=== PATIENT | female | born 1940 | race Caucasian/White ===

== ENCOUNTER → 2016-12-31 | Outpatient (CLI) | payer MEDICARE, BC ==
--- NOTE | 2017-01-03 10:02 | MM ---
Reason for exam: screening (asymptomatic). Last mammogram was performed 1 year ago. History: Patient is postmenopausal. Family history of breast cancer in mother at age 60. Physical Findings: A clinical breast exam by your physician is recommended on an annual basis and results should be correlated with mammographic findings. MG 3D Screening Mammo W/Cad Bilateral CC and MLO view(s) were taken. Prior study comparison: December 17, 2015, bilateral MG 3d screening mammo w/cad. December 16, 2014, bilateral MG screening mammo w CAD. The breast tissue is heterogeneously dense. This may lower the sensitivity of mammography. There is no discrete abnormality. No significant changes when compared with prior studies. ASSESSMENT: Negative, BI-RAD 1 RECOMMENDATION: Routine screening mammogram of both breasts in 1 year.
== END | disposition home or self-care (01) ==
LOC: RADMAMWWP 14:35
PROVIDERS: ATTEND Internal Medicine
DX: Z12.31 Encounter for screening mammogram for malignant neoplasm of breast (principal)
CPT/HCPCS: 77063; G0202

== ENCOUNTER 2017-02-06 11:27 | Inpatient (IN) | payer MEDICARE, BC ==
[2017-02-06] MEDS ORDERED: SODIUM CHLORIDE 0.9% 1,000 ML IV STA ×2 (11:48)
--- NOTE | 2017-02-06 11:52 | ED ---
Arrhythmia/Palpitations HPI - General Chief Complaint: Arrhythmia/Palpitations Stated Complaint: HEART RACING, COLD, CLAMMY AND WEAK Time Seen by Provider: 02/06/17 11:36 Source: patient, family, RN notes reviewed Mode of arrival: wheelchair Limitations: no limitations - History of Present Illness Initial Comments: This is a 76-year-old female history diabetes who presents with complaints of a racing heart weakness feeling shaky. She states she did have some left-sided chest pain since 5 days ago she was taking her blood pressure home and also her pulse is rapid and her blood pressure has been going up especially over last day or so she's had decreased oral intake and appetite for past 2-3 days she denies any fevers chills or sweats no nausea or other symptoms. No cough. She did recently go to [place] come back but this was toward the end of December. MD Complaint: "heart racing", palpitations - Related Data Home Medications Medication Instructions Recorded Confirmed Aspirin [Adult Low Dose Aspirin EC] 81 mg PO DAILY 02/06/17 02/06/17 Carvedilol [Coreg] 12.5 mg PO BID 02/06/17 02/06/17 Cholecalciferol [Vitamin D3] 1,000 unit PO DAILY 02/06/17 02/06/17 Escitalopram [Lexapro] 10 mg PO DAILY 02/06/17 02/06/17 Ezetimibe [Zetia] 10 mg PO DAILY 02/06/17 02/06/17 INSULIN LISPRO (HumaLOG) [HumaLOG] See Protocol SQ TID 02/06/17 02/06/17 Insulin Glargine [Lantus] 12 unit SQ HS 02/06/17 02/06/17 Levothyroxine Sodium [Synthroid] 88 mcg PO DAILY 02/06/17 02/06/17 Lisinopril [Zestril] 10 mg PO BID 02/06/17 02/06/17 Pitavastatin Calcium [Livalo] 2 mg PO DAILY 02/06/17 02/06/17 Vitamin B Complex 1 cap PO DAILY 02/06/17 02/06/17 Allergies Allergy/AdvReac Type Severity Reaction Status Date / Time amoxicillin Allergy Anaphylaxis Verified 02/06/17 13:00 bee venom protein (honey bee) Allergy Anaphylaxis Verified 02/06/17 13:00 Sulfa (Sulfonamide Allergy Anaphylaxis Verified 02/06/17 13:00 Antibiotics) Review of Systems ROS Statement: Those systems with pertinent positive or pertinent negative responses have been documented in the HPI. ROS Other: All systems not noted in ROS Statement are negative. Past Medical History Past Medical History: Diabetes Mellitus, Hypertension, Thyroid Disorder Additional Past Medical History / Comment(s): irregular heart beat History of Any Multi-Drug Resistant Organisms: None Reported Past Surgical History: No Surgical Hx Reported Past Psychological History: Anxiety Smoking Status: Former smoker Past Alcohol Use History: None Reported Past Drug Use History: None Reported General Exam - General Exam Comments Initial Comments: This is a well-developed well-nourished awake alert oriented x 3 female Limitations: no limitations General appearance: alert, in no apparent distress Head exam: Present: atraumatic, normocephalic, normal inspection Eye exam: Present: normal appearance, PERRL, EOMI. Absent: scleral icterus, conjunctival injection, periorbital swelling ENT exam: Present: mucous membranes dry Neck exam: Present: normal inspection. Absent: tenderness, meningismus, lymphadenopathy Respiratory exam: Present: normal lung sounds bilaterally. Absent: respiratory distress, wheezes, rales, rhonchi, stridor Cardiovascular Exam: Present: regular rate, normal rhythm, normal heart sounds. Absent: systolic murmur, diastolic murmur, rubs, gallop, clicks GI/Abdominal exam: Present: soft, normal bowel sounds. Absent: distended, tenderness, guarding, rebound, rigid Extremities exam: Present: normal inspection, full ROM, normal capillary refill. Absent: tenderness, pedal edema, joint swelling, calf tenderness Back exam: Present: normal inspection Neurological exam: Present: alert, oriented X3, CN II-XII intact Psychiatric exam: Present: normal affect, normal mood Skin exam: Present: warm, dry, intact, normal color. Absent: rash Course Vital Signs 02/06/17 02/06/17 02/06/17 11:29 11:46 12:06 Temperature 98.3 F Pulse Rate 77 70 67 Respiratory 20 Rate Blood Pressure 246/106 258/119 218/134 O2 Sat by Pulse 99 Oximetry 02/06/17 02/06/17 02/06/17 13:37 14:11 15:12 Temperature Pulse Rate 70 73 78 Respiratory 18 18 20 Rate Blood Pressure 229/100 221/92 210/93 O2 Sat by Pulse 98 99 98 Oximetry 02/06/17 02/06/17 02/06/17 15:48 16:11 16:41 Temperature Pulse Rate 74 74 74 Respiratory 18 20 20 Rate Blood Pressure 154/72 144/66 166/74 O2 Sat by Pulse 97 97 98 Oximetry EKG Findings - EKG Results: EKG: interpreted by ERMRachael, sinus rhythm (Sinus rhythm with a rate 68 [place] interval is 180 QRS 70 daily QT since QTC of 424/450 nonspecific anterior changes. This is compared to an EKG dated 08/04/11 which reveals no major changes and configuration.) Medical Decision Making - Medical Decision Making I did reevaluate the patient multiple occasions she still does not feel well she 's had no further chest pain however. I did a long discussion with her and her family regarding the findings the initial plan was to discharge patient but she still has recurrent symptoms she will be admitted I did discuss the case with Dr. Cooper. - Lab Data Result diagrams: 02/06/17 11:56 02/06/17 11:56 Lab Results 02/06/17 02/06/17 02/06/17 Range/Units 11:56 11:56 11:56 WBC 5.2 (3.8-10.6) k/uL RBC 4.45 (3.80-5.40) m/uL Hgb 12.4 (11.4-16.0) gm/dL Hct 37.3 (34.0-46.0) % MCV 83.7 (80.0-100.0) fL MCH 27.8 (25.0-35.0) pg MCHC 33.2 (31.0-37.0) g/dL RDW 13.9 (11.5-15.5) % Plt Count 301 (150-450) k/uL Neutrophils % 72 % Lymphocytes % 17 % Monocytes % 5 % Eosinophils % 3 % Basophils % 1 % Neutrophils # 3.8 (1.3-7.7) k/uL Lymphocytes # 0.9 L (1.0-4.8) k/uL Monocytes # 0.3 (0-1.0) k/uL Eosinophils # 0.2 (0-0.7) k/uL Basophils # 0.0 (0-0.2) k/uL PT (9.0-12.0) sec INR (<1.2) APTT (22.0-30.0) sec D-Dimer (<0.60) mg/L FEU Sodium 140 (137-145) mmol/L Potassium 4.2 (3.5-5.1) mmol/L Chloride 106 (98-107) mmol/L Carbon Dioxide 23 (22-30) mmol/L Anion Gap 11 mmol/L BUN 14 (7-17) mg/dL Creatinine 0.76 (0.52-1.04) mg/dL Est GFR (MDRD) Af Amer >60 (>60 ml/min/1.73 sqM) Est GFR (MDRD) Non-Af >60 (>60 ml/min/1.73 sqM) Glucose 217 H (74-99) mg/dL Calcium 9.5 (8.4-10.2) mg/dL Magnesium 1.8 (1.6-2.3) mg/dL Total Bilirubin 1.4 H (0.2-1.3) mg/dL AST 24 (14-36) U/L ALT 23 (9-52) U/L Alkaline Phosphatase 84 (38-126) U/L Total Creatine Kinase 116 (30-135) U/L CK-MB (CK-2) 4.5 H* (0.0-2.4) ng/mL CK-MB (CK-2) Rel Index 3.9 Troponin I <0.012 (0.000-0.034) ng/mL Total Protein 7.4 (6.3-8.2) g/dL Albumin 4.2 (3.5-5.0) g/dL TSH 0.028 L (0.465-4.680) mIU/L Free T4 2.47 H (0.78-2.19) ng/dL Urine Color Urine Appearance (Clear) Urine pH (5.0-8.0) Ur Specific [place] (1.001-1.035) Urine Protein (Negative) Urine Glucose (UA) (Negative) Urine Ketones (Negative) Urine Blood (Negative) Urine Nitrite (Negative) Urine Bilirubin (Negative) Urine Urobilinogen (<2.0) mg/dL Ur Leukocyte Esterase (Negative) Urine RBC (0-5) /hpf Urine WBC (0-5) /hpf Ur Squamous Epith Cells (0-4) /hpf 09/17/17 09/17/17 Range/Units 11:56 11:56 WBC (3.8-10.6) k/uL RBC (3.80-5.40) m/uL Hgb (11.4-16.0) gm/dL Hct (34.0-46.0) % MCV (80.0-100.0) fL MCH (25.0-35.0) pg MCHC (31.0-37.0) g/dL RDW (11.5-15.5) % Plt Count (150-450) k/uL Neutrophils % % Lymphocytes % % Monocytes % % Eosinophils % % Basophils % % Neutrophils # (1.3-7.7) k/uL Lymphocytes # (1.0-4.8) k/uL Monocytes # (0-1.0) k/uL Eosinophils # (0-0.7) k/uL Basophils # (0-0.2) k/uL PT 10.3 (9.0-12.0) sec INR 1.0 (<1.2) APTT 23.5 (22.0-30.0) sec D-Dimer 1.53 H (<0.60) mg/L FEU Sodium (137-145) mmol/L Potassium (3.5-5.1) mmol/L Chloride (98-107) mmol/L Carbon Dioxide (22-30) mmol/L Anion Gap mmol/L BUN (7-17) mg/dL Creatinine (0.52-1.04) mg/dL Est GFR (MDRD) Af Amer (>60 ml/min/1.73 sqM) Est GFR (MDRD) Non-Af (>60 ml/min/1.73 sqM) Glucose (74-99) mg/dL Calcium (8.4-10.2) mg/dL Magnesium (1.6-2.3) mg/dL Total Bilirubin (0.2-1.3) mg/dL AST (14-36) U/L ALT (9-52) U/L Alkaline Phosphatase (38-126) U/L Total Creatine Kinase (30-135) U/L CK-MB (CK-2) (0.0-2.4) ng/mL CK-MB (CK-2) Rel Index Troponin I (0.000-0.034) ng/mL Total Protein (6.3-8.2) g/dL Albumin (3.5-5.0) g/dL TSH (0.465-4.680) mIU/L Free T4 (0.78-2.19) ng/dL Urine Color Light Yellow Urine Appearance Clear (Clear) Urine pH 7.5 (5.0-8.0) Ur Specific [place] 1.008 (1.001-1.035) Urine Protein Negative (Negative) Urine Glucose (UA) 2+ H (Negative) Urine Ketones 2+ H (Negative) Urine Blood Negative (Negative) Urine Nitrite Negative (Negative) Urine Bilirubin Negative (Negative) Urine Urobilinogen <2.0 (<2.0) mg/dL Ur Leukocyte Esterase Trace H (Negative) Urine RBC 2 (0-5) /hpf Urine WBC 1 (0-5) /hpf Ur Squamous Epith Cells <1 (0-4) /hpf - Radiology Data Radiology results: report reviewed (I did review the imaging there is evidence of atelectasis in the mid left lung however CT shows no evidence of acute findings including no evidence of pulmonary embolism.), image reviewed Disposition Clinical Impression: Atypical chest pain, Labile hypertension, Palpitations Disposition: ADMITTED IP TO THIS [facility] Condition: Stable Referrals: Diallo Mckeon MD [Primary Care Provider] - 1-2 days
[2017-02-06 12:12] LABS: Basophils % (A) 1 %; CH 27.1; CHCM 32.5; Eosinophils # (A) 0.2 k/uL (0-0.7); Eosinophils % (A) 3 %; HCT 37.3 % (34.0-46.0); HDW 2.84; HGB 12.4 gm/dL (11.4-16.0); Luc # (Auto) 0.13; Luc % (Auto) 2; Lymphocytes # (A) 0.9 k/uL (1.0-4.8); Lymphocytes % (A) 17 %; MCH 27.8 pg (25.0-35.0); MCHC 33.2 g/dL (31.0-37.0); MCV 83.7 fL (80.0-100.0); Mean Platelet Volume 6.4; Monocytes # (A) 0.3 k/uL (0-1.0); Monocytes % (A) 5 %; Neutrophils # (A) 3.8 k/uL (1.3-7.7); Neutrophils % (A) 72 %; RBC 4.45 m/uL (3.80-5.40); RDW 13.9 % (11.5-15.5); WBC 5.2 k/uL (3.8-10.6); WBC (Perox) 5.27
[2017-02-06 12:19] LABS: Appearance,Urine Clear (Clear); Bilirubin,Urine Negative (Negative); Glucose,Urine (UA) 2+ (Negative); Leukocyte Esterase,Urine Trace (Negative); Nitrite,Urine Negative (Negative); PH, Urine 7.5 (5.0-8.0); Particle Count 622; Protein,Urine Negative (Negative); RBC,Urine 2 /hpf (0-5); Specific Gravity,Urine 1.008 (1.001-1.035); Squamous Epithelial Cell,Urine <1 /hpf (0-4); UA Billing (MACRO vs. MICRO) MICRO; Urobilinogen,Urine <2.0 mg/dL (<2.0); WBC,Urine 1 /hpf (0-5)
[2017-02-06 12:22] LABS: ALT 23 U/L (9-52); AST 24 U/L (14-36); Alkaline Phosphatase 84 U/L (38-126); Anion Gap 11 mmol/L; Blood Urea Nitrogen 14 mg/dL (7-17); Calcium 9.5 mg/dL (8.4-10.2); Carbon Dioxide 23 mmol/L (22-30); Chloride 106 mmol/L (98-107); Glucose 217 mg/dL (74-99); Magnesium 1.8 mg/dL (1.6-2.3); Non-African American GFR(MDRD) >60 (>60 ml/min/1.73 sqM); Potassium 4.2 mmol/L (3.5-5.1); Sodium 140 mmol/L (137-145); Total Bilirubin 1.4 mg/dL (0.2-1.3); Total Protein 7.4 g/dL (6.3-8.2)
[2017-02-06 12:24] LABS: Ketones,Urine 2+ (Negative)
[2017-02-06 12:28] LABS: Partial Thromboplastin Time 23.5 sec (22.0-30.0); Prothrombin Time 10.3 sec (9.0-12.0)
[2017-02-06 12:31] LABS: Creatine Kinase 116 U/L (30-135)
--- NOTE | 2017-02-06 12:39 | XR ---
EXAMINATION TYPE: XR chest 2V DATE OF EXAM: 02/06/2017 HISTORY: dysrhythmia. REFERENCE: Previous study dated 08/03/2011. FINDINGS: Lung volumes are prominent. The heart is mildly prominent. There is some platelike atelecta sis in the left midlung. Lungs otherwise clear. Pleural spaces are clear. IMPRESSION: 1. COPD. 2. PLATELIKE ATELECTASIS, LEFT MIDLUNG.
[2017-02-06 12:44] LABS: Troponin I <0.012 ng/mL (0.000-0.034)
[2017-02-06 12:46] LABS: Creatine Kinase MB 4.5 ng/mL (0.0-2.4)
[2017-02-06] MEDS ORDERED: RX INFO: IV CONTRAST WAS GIVEN 1 EACH MISC MISCELLANE PRN (13:31)
[2017-02-06] MEDS ORDERED: hydrALAZINE HCL 20 MG/ML 1 ML VIAL IVP STA ×2 (13:42→15:15)
--- NOTE | 2017-02-06 15:16 | CT ---
EXAMINATION TYPE: CT angio chest DATE OF EXAM: 02/06/2017 2:51 PM COMPARISON: NONE HISTORY: Weakness and hypertension. CT DLP: 188.5 mGycm Automated exposure control for dose reduction was used. CONTRAST: CTA scan of the thorax is performed with IV Contrast, patient injected with 70 mL of Omnipaque 350, p ulmonary embolism protocol. . FINDINGS: LUNGS: Atelectasis is again noted at the left lung base, there is no concerning parenchymal mass or n odule identified. There is no pleural effusion or pneumothorax seen. The tracheobronchial tree is patent. MEDIASTINUM: There is satisfactory enhancement of the pulmonary artery and its branches, there is no CT evidence for pulmonary embolism. There are no greater than 1 cm hilar or mediastinal lymph nodes. No pericardial effusion is seen. OTHER: No additional significant abnormality is seen. IMPRESSION: NO FINDINGS TO SUGGEST A PULMONARY EMBOLISM.
[2017-02-06] MEDS ORDERED: NITROGLYCERIN SL TABS 0.4 MG TAB SUBLINGUAL PRN (16:56)
--- NOTE | 2017-02-06 17:38 | P.HPIM ---
History of Present Illness H&P Date: 02/06/17 Chief Complaint: Left flank pain, palpitations and shortness of breath The patient is a 76-year-old female with a past medical history of essential hypertension type 2 diabetes and dyslipidemia who presents to the ER with chief complaint of left-sided flank pain, palpitations and exertional dyspnea over the last 4 days, she denies any cough or extremity swelling or chest pain. The patient reports that her left flank pain can be associated with exertion but not always and can sometimes be associated with movement she' s reports that as being mild lasting a few seconds and denies any radiation. She denies any nausea vomiting diaphoresis or lower extremity swelling. She is followed in clinic by Dr. Mckeon and reports that she's had a stress test previously 3 years ago that was negative. In the ER she had a routine workup with chest x-ray routine labs and EKG her troponins were negative and her EKG was negative for any acute ischemia Review of Systems All other 14 point systems are negative except for HPI Past Medical History Past Medical History: Diabetes Mellitus, Hypertension, Thyroid Disorder Additional Past Medical History / Comment(s): irregular heart beat History of Any Multi-Drug Resistant Organisms: None Reported Past Surgical History: No Surgical Hx Reported Past Psychological History: Anxiety Smoking Status: Former smoker Past Alcohol Use History: None Reported Past Drug Use History: None Reported Medications and Allergies Home Medications Medication Instructions Recorded Confirmed Type Aspirin [Adult Low Dose Aspirin EC] 81 mg PO DAILY 02/06/17 02/06/17 History Carvedilol [Coreg] 12.5 mg PO BID 02/06/17 02/06/17 History Cholecalciferol [Vitamin D3] 1,000 unit PO DAILY 02/06/17 02/06/17 History Escitalopram [Lexapro] 10 mg PO DAILY 02/06/17 02/06/17 History Ezetimibe [Zetia] 10 mg PO DAILY 02/06/17 02/06/17 History INSULIN LISPRO (HumaLOG) [HumaLOG] See Protocol SQ TID 02/06/17 02/06/17 History Insulin Glargine [Lantus] 12 unit SQ HS 02/06/17 02/06/17 History Levothyroxine Sodium [Synthroid] 88 mcg PO DAILY 02/06/17 02/06/17 History Lisinopril [Zestril] 10 mg PO BID 02/06/17 02/06/17 History Pitavastatin Calcium [Livalo] 2 mg PO DAILY 02/06/17 02/06/17 History Vitamin B Complex 1 cap PO DAILY 02/06/17 02/06/17 History Allergies Allergy/AdvReac Type Severity Reaction Status Date / Time amoxicillin Allergy Anaphylaxis Verified 02/06/17 13:00 bee venom protein (honey bee) Allergy Anaphylaxis Verified 02/06/17 13:00 Sulfa (Sulfonamide Allergy Anaphylaxis Verified 02/06/17 13:00 Antibiotics) Physical Exam Vitals: Vital Signs Temp Pulse Resp BP Pulse Ox 02/06/17 16:41 74 20 166/74 98 02/06/17 16:11 74 20 144/66 97 02/06/17 15:48 74 18 154/72 97 02/06/17 15:12 78 20 210/93 98 02/06/17 14:11 73 18 221/92 99 02/06/17 13:37 70 18 229/100 98 02/06/17 12:06 67 218/134 02/06/17 11:46 70 258/119 02/06/17 11:29 98.3 F 77 20 246/106 99 Intake and Output 02/06/17 02/06/17 02/06/17 06:59 14:59 22:59 Other: Weight 66.678 kg Patient Weight 02/07/17 06:59 Weight 66.678 kg Constitutional: No acute distress, conversant, pleasant Eyes: Anicteric sclerae, moist conjunctiva, no lid-lag, PERRLA ENMT: NC/AT,Oropharynx clear, no erythema, exudates Neck:Supple, FROM, no masses, or JVD, No carotid bruits; No thyromegaly Lungs: Clear to auscultation, Clear to percussion, Normal respiratory effort, no accessory muscle use Cardiovascular: Heart regular in rate and rhythm, No murmurs, gallops, or rubs no peripheral edema Abdominal: Soft Nontender, nom distended, no guarding, no rebound or rigidity, Normoactive bowel sounds No hepatomegaly, No splenomegaly, No palpable mass No abdominal wall hernia noted Skin: Normal temperature, tone, texture, turgor, No induration No subcutaneous nodules, No rash, lesions, No ulcers Extremities:No digital cyanosis No clubbing, Pedal pulses intact and symmetrical Radial pulses intact and symmetrical Normal gait and station, No calf tenderness Psychiatric: Alert and oriented to person, place and time, Appropriate affect Intact judgement Neuro: Muscles Strength 5/5 in all 4 extremities, Sensation to light touch grossly present throughout, Cranial nerves II-XII grossly intact. No focal sensory deficits Results CBC & Chem 7: 02/06/17 11:56 02/06/17 11:56 Labs: Abnormal Lab Results - Last 24 Hours (Table) 02/06/17 02/06/17 02/06/17 Range/Units 11:56 11:56 11:56 Lymphocytes # 0.9 L (1.0-4.8) k/uL D-Dimer (<0.60) mg/L FEU Glucose 217 H (74-99) mg/dL Total Bilirubin 1.4 H (0.2-1.3) mg/dL CK-MB (CK-2) 4.5 H* (0.0-2.4) ng/mL TSH 0.028 L (0.465-4.680) mIU/L Free T4 2.47 H (0.78-2.19) ng/dL Urine Glucose (UA) (Negative) Urine Ketones (Negative) Ur Leukocyte Esterase (Negative) 02/06/17 02/06/17 Range/Units 11:56 11:56 Lymphocytes # (1.0-4.8) k/uL D-Dimer 1.53 H (<0.60) mg/L FEU Glucose (74-99) mg/dL Total Bilirubin (0.2-1.3) mg/dL CK-MB (CK-2) (0.0-2.4) ng/mL TSH (0.465-4.680) mIU/L Free T4 (0.78-2.19) ng/dL Urine Glucose (UA) 2+ H (Negative) Urine Ketones 2+ H (Negative) Ur Leukocyte Esterase Trace H (Negative) Assessment and Plan (1) Left flank pain Status: Acute (2) Accelerated hypertension Status: Acute (3) Exertional dyspnea Status: Acute (4) Palpitations Status: Acute (5) Dyslipidemia Status: Acute (6) Type 2 diabetes mellitus Status: Acute (7) Hypothyroidism Status: Acute Plan: The patient is placed on observation anticipate a less than to midnight stay with left flank pain which could be that atypical chest pain with coronary risk factors and complaining of palpitations, her initial EKG and troponins were negative for any suggestion of ischemia we'll continue to trend her troponin biomarkers initiate routine chest pain orders we'll order a 2-D echocardiogram and nuclear stress test. Of note the patient had elevated d-dimer and subsequent CTA of the chest was negative for pulmonary embolism .We'll place the patient on telemetry her palpitations could be secondary to a supra therapeutic thyroid supplementation as her TSH is low and her free T4 elevated, we'll taper down her dose to 75 g PO daily. Patient presented with axillary hypertension restarted her home hypertensive regimen and her blood pressure has come down nicely We'll continue her chronic medications and continue to monitor clinical course
[2017-02-06 18:35] LABS: Creatine Kinase 122 U/L (30-135)
[2017-02-06 18:48] LABS: Troponin I <0.012 ng/mL (0.000-0.034)
[2017-02-06 18:57] LABS: Creatine Kinase MB 4.2 ng/mL (0.0-2.4)
[2017-02-06 19:05] LABS: Glucose,Whole Blood 319 mg/dL (75-99)
[2017-02-06] MEDS: CARVEDILOL 12.5 MG TAB PO SCH (19:33)
[2017-02-06 19:47] VITALS: BMI 22.3
[2017-02-06] MEDS: LISINOPRIL 10 MG TAB PO SCH (20:00)
[2017-02-06] MEDS: INSULIN LISPRO (humaLOG) 300 UNIT/3 ML VIAL SQ SCH ×2 (20:00→20:04)
[2017-02-06] MEDS: INSULIN GLARGINE 100 UNIT/ML 10 ML VIAL SQ SCH (20:00)
[2017-02-06] MEDS: ACETAMINOPHEN TAB 325 MG TAB PO PRN (21:34)
[2017-02-07 01:15] LABS: Creatine Kinase 117 U/L (30-135)
[2017-02-07 01:28] LABS: Troponin I <0.012 ng/mL (0.000-0.034)
[2017-02-07 01:31] LABS: Creatine Kinase MB 3.6 ng/mL (0.0-2.4)
[2017-02-07 02:28] LABS: Cholesterol 158 mg/dL (<200); HDL Cholesterol 103 mg/dL (40-60)
[2017-02-07] MEDS: LEVOTHYROXINE 75 MCG TAB PO SCH (05:59)
[2017-02-07] MEDS ORDERED: LEVOTHYROXINE 88 MCG TAB PO SCH (06:30)
[2017-02-07] MEDS: EZETIMIBE 10 MG TAB PO SCH (07:36)
[2017-02-07] MEDS: ASPIRIN 325 MG TAB PO SCH (07:36)
[2017-02-07] MEDS: ATORVASTATIN 10 MG TAB PO SCH (07:36)
[2017-02-07] MEDS: ACETAMINOPHEN TAB 325 MG TAB PO PRN ×3 (07:36→18:41)
[2017-02-07] MEDS: ESCITALOPRAM 10 MG TAB PO SCH (07:38)
[2017-02-07 07:56] LABS: Glucose,Whole Blood 150 mg/dL (75-99)
[2017-02-07] MEDS ORDERED: ASPIRIN 325 MG TAB PO SCH (09:00)
[2017-02-07] MEDS ORDERED: ASPIRIN 81 MG PO SCH (09:00)
--- NOTE | 2017-02-07 09:56 | P.PN ---
Progress Note - Text She was sent for stress test. Patient interviewed and examined in STRESS LAB Pressure 223/96, 172/81 and 184/81 Repeat blood pressure the stress lab in the supine position 214 mmHg systolic 214 mmHg Patient admitted with elevated blood pressures that were noted by the patient no chest discomfort. Normal cardiac enzymes Stress test canceled Spoke to the hospitalists, dR. ALVAREZ
--- NOTE | 2017-02-07 10:11 | NM ---
EXAMINATION TYPE: NM myocardial SPECT single DATE OF EXAM: 02/07/2017 COMPARISON: Chest x-ray 02/06/2017 HISTORY: Chest pain Following administration of 10.96 mCi Tc 99m Sestamibi. Images obtained 45 minutes post injection. FINDINGS: Calculated ejection fraction is 81% No evident perfusion abnormality. Only rest images were obtained for the referring clinician. IMPRESSION: Elevated cardiac ejection fraction, recommend echocardiographic correlation. Limited exam.
[2017-02-07] MEDS: INSULIN LISPRO (humaLOG) 300 UNIT/3 ML VIAL SQ SCH ×4 (10:18→21:16)
[2017-02-07] MEDS: LISINOPRIL 10 MG TAB PO SCH (10:24)
[2017-02-07] MEDS: CARVEDILOL 12.5 MG TAB PO SCH ×2 (10:24→18:29)
[2017-02-07] MEDS: CHOLECALCIFEROL 1,000 UNIT TAB PO SCH (11:56)
[2017-02-07] MEDS: B COMPLEX-VIT C-VIT E-ZINC 1 EACH TAB PO SCH (11:56)
[2017-02-07 12:01] LABS: Glucose,Whole Blood 190 mg/dL (75-99)
--- NOTE | 2017-02-07 14:39 | ECHOF ---
Referral Reason:palpitations, HTN MEASUREMENTS -------- HEIGHT: 172.7 cm WEIGHT: 66.2 kg BP: RVIDd: 2.8 cm (< 3.3) IVSd: 1.1 cm (0.6 - 1.1) LVIDd: 4.2 cm (3.9 - 5.3) LVPWd: 1.1 cm (0.6 - 1.1) IVSs: 1.4 cm LVIDs: 2.8 cm LVPWs: 1.5 cm LA Diam: 3.0 cm (2.7 - 3.8) LAESV Index (A-L): 27.69 ml/m Ao Diam: 3.0 cm (2.0 - 3.7) AV Cusp: 2.0 cm (1.5 - 2.6) MV E Mannie: 1.04 m/s MV DecT: 192 ms MV A Mannie: 1.03 m/s MV E/A Ratio: 1.01 FINDINGS -------- Sinus rhythm. This was a technically good study. The left ventricular size is normal. There is borderline concentric left ventricular hypertrophy. Overall left ventricular systolic function is normal with, an EF between 60 - 65 %. The right ventricle is normal in size. Normal LA size by volume 22+/-6 ml/m2. The right atrium is normal in size. Aortic valve is trileaflet and is mildly thickened. The mitral valve is normal. The tricuspid valve appears structurally normal. Trace tricuspid regurgitation present. Trace/mild (physiologic) pulmonic regurgitation. The aortic root size is normal. Normal inferior vena cava with normal inspiratory collapse consistent with estimated right atrial pressure of 5 mmHg. There is no pericardial effusion. CONCLUSIONS -------- 1. Sinus rhythm. 2. The mitral valve is normal. 3. The tricuspid valve appears structurally normal. 4. Trace tricuspid regurgitation present. 5. Trace/mild (physiologic) pulmonic regurgitation. 6. The aortic root size is normal. 7. Normal inferior vena cava with normal inspiratory collapse consistent with estimated right atrial pressure of 5 mmHg. 8. There is no pericardial effusion. 9. This was a technically good study. 10. The left ventricular size is normal. 11. There is borderline concentric left ventricular hypertrophy. 12. Overall left ventricular systolic function is normal with, an EF between 60 - 65 %. 13. The right ventricle is normal in size. 14. Normal LA size by volume 22+/-6 ml/m2. 15. The right atrium is normal in size. 16. Aortic valve is trileaflet and is mildly thickened. REPRESENTATIVE PERSONAL SERVICE: Jia Madrid RDCS
--- NOTE | 2017-02-07 16:32 | P.PN ---
Subjective Principal diagnosis: Elevated blood pressure 76-year-old female that was admitted with symptoms of chest discomfort and found to have elevated blood pressure in the ER. Denies any chest pains currently. No fever no nausea no palpitations Objective - Vital Signs Vital signs: Vital Signs Temp 98.9 F 02/07/17 15:59 Pulse 68 02/07/17 15:59 Resp 18 02/07/17 15:59 BP 218/100 02/07/17 15:59 Pulse Ox 97 02/07/17 15:59 Intake & Output 02/06/17 02/07/17 02/07/17 18:59 06:59 18:59 Weight 66.678 kg 66.6 kg Other: Voiding Method Toilet # Voids 1 - Exam gen:alert and oriented lungs:clear to auscultation heart:s1s2 abdomen:soft and depressible,non tender ext:no edema - Labs CBC & Chem 7: 02/06/17 11:56 02/06/17 11:56 Labs: Abnormal Lab Results - Last 24 Hours (Table) 02/06/17 02/06/17 02/06/17 Range/Units 11:56 11:56 17:55 POC Glucose (mg/dL) (75-99) mg/dL Hemoglobin A1c 8.0 H (4.2-6.1) % CK-MB (CK-2) 4.2 H* (0.0-2.4) ng/mL HDL Cholesterol 103 H (40-60) mg/dL 02/06/17 02/06/17 02/07/17 Range/Units 19:00 23:50 07:55 POC Glucose (mg/dL) 319 H 150 H (75-99) mg/dL Hemoglobin A1c (4.2-6.1) % CK-MB (CK-2) 3.6 H* (0.0-2.4) ng/mL HDL Cholesterol (40-60) mg/dL 02/07/17 Range/Units 11:59 POC Glucose (mg/dL) 190 H (75-99) mg/dL Hemoglobin A1c (4.2-6.1) % CK-MB (CK-2) (0.0-2.4) ng/mL HDL Cholesterol (40-60) mg/dL Assessment and Plan (1) Accelerated hypertension Narrative/Plan: Will increase lisinopril to 20 mg twice a day has still been uncontrolled to streptococcus was discontinued secondary to her being over 200 Status: Acute (2) Atypical chest pain Narrative/Plan: Seems to be a typical. Stress test was not performed secondary to blood pressure 100. Discussed with cardiology nurse practitioner said that Dr. Leslie does not recommend having a stress test done as an inpatient, encourages better blood pressure control Status: Acute (3) Dyslipidemia Narrative/Plan: Continue Lipitor Status: Acute (4) Essential hypertension Narrative/Plan: Test #1 lisinopril 20 mg twice a day Status: Acute (5) Hypothyroidism Narrative/Plan: Continue Synthroid Status: Acute
[2017-02-07 17:17] LABS: Glucose,Whole Blood 256 mg/dL (75-99)
[2017-02-07] MEDS: LISINOPRIL 20 MG TAB PO SCH (18:30)
[2017-02-07 20:47] LABS: Glucose,Whole Blood 221 mg/dL (75-99)
[2017-02-07] MEDS: INSULIN GLARGINE 100 UNIT/ML 10 ML VIAL SQ SCH (21:18)
[2017-02-07] MEDS ORDERED: cloNIDine HCL 0.1 MG TAB PO PRN (21:35)
[2017-02-07] MEDS: amLODIPine 10 MG TAB PO SCH (22:17)
[2017-02-08] MEDS: LEVOTHYROXINE 75 MCG TAB PO SCH (06:10)
[2017-02-08 06:29] LABS: Glucose,Whole Blood 166 mg/dL (75-99)
[2017-02-08 07:04] LABS: Anion Gap 9 mmol/L; Blood Urea Nitrogen 16 mg/dL (7-17); Calcium 9.3 mg/dL (8.4-10.2); Carbon Dioxide 24 mmol/L (22-30); Chloride 107 mmol/L (98-107); Glucose 178 mg/dL (74-99); Non-African American GFR(MDRD) >60 (>60 ml/min/1.73 sqM); Potassium 3.6 mmol/L (3.5-5.1); Sodium 140 mmol/L (137-145)
[2017-02-08] MEDS: LISINOPRIL 20 MG TAB PO SCH ×2 (07:59→20:59)
[2017-02-08] MEDS: ACETAMINOPHEN TAB 325 MG TAB PO PRN ×3 (07:59→19:47)
[2017-02-08] MEDS: ATORVASTATIN 10 MG TAB PO SCH (07:59)
[2017-02-08] MEDS: CARVEDILOL 12.5 MG TAB PO SCH ×2 (07:59→17:51)
[2017-02-08] MEDS: EZETIMIBE 10 MG TAB PO SCH (07:59)
[2017-02-08] MEDS: ESCITALOPRAM 10 MG TAB PO SCH (07:59)
[2017-02-08] MEDS: ASPIRIN 325 MG TAB PO SCH (07:59)
[2017-02-08] MEDS: INSULIN LISPRO (humaLOG) 300 UNIT/3 ML VIAL SQ SCH ×4 (09:42→20:59)
[2017-02-08] MEDS: B COMPLEX-VIT C-VIT E-ZINC 1 EACH TAB PO SCH (11:51)
[2017-02-08] MEDS: CHOLECALCIFEROL 1,000 UNIT TAB PO SCH (11:51)
[2017-02-08 12:03] LABS: Glucose,Whole Blood 230 mg/dL (75-99)
--- NOTE | 2017-02-08 12:32 | P.PN ---
Subjective Principal diagnosis: Elevated blood pressure Patient has had headaches, no chest pains no palpitations no shortness of breath Objective - Vital Signs Vital signs: Vital Signs Temp 98.1 F 02/08/17 12:00 Pulse 60 02/08/17 12:00 Resp 16 02/08/17 12:00 BP 182/78 02/08/17 12:00 Pulse Ox 99 02/08/17 12:00 Intake & Output 02/07/17 02/08/17 02/08/17 18:59 06:59 18:59 Other: Voiding Method Toilet Toilet Toilet - Exam gen:alert and oriented lungs:clear to auscultation heart:s1s2 abdomen:soft and depressible,non tender ext:no edema - Labs CBC & Chem 7: 02/06/17 11:56 02/08/17 06:28 Labs: Abnormal Lab Results - Last 24 Hours (Table) 02/06/17 02/07/17 02/07/17 Range/Units 11:56 17:13 20:43 Glucose (74-99) mg/dL POC Glucose (mg/dL) 256 H 221 H (75-99) mg/dL Hemoglobin A1c 8.0 H (4.2-6.1) % 02/08/17 02/08/17 02/08/17 Range/Units 06:27 06:28 11:58 Glucose 178 H (74-99) mg/dL POC Glucose (mg/dL) 166 H 230 H (75-99) mg/dL Hemoglobin A1c (4.2-6.1) % Assessment and Plan (1) Accelerated hypertension Narrative/Plan: Blood pressure uncontrolled despite changes, we'll consult nephrology for assistance with blood pressure management, patient as mentioned above having headaches elevated blood pressure Status: Acute (2) Atypical chest pain Narrative/Plan: A typical no further episodes as an inpatient further workup as an outpatient Status: Acute (3) Dyslipidemia Narrative/Plan: Continue Lipitor Status: Acute (4) Essential hypertension Status: Acute (5) Hypothyroidism Narrative/Plan: Continue Synthroid Status: Acute
--- NOTE | 2017-02-08 13:26 | CDI ---
In responding to this query, please exercise your independent professional judgment. The [facility] Coding Staff and Clinical Documentation Specialists appreciate your assistance in clarifying documentation, maintaining compliance with coding guidelines, accurately documenting patients condition and capturing severity of illness. The fact that a question is asked does not imply that any particular answer is desired or expected. Communication forms are a method of clarifying documentation and are not made part of the Legal Health Record. Thank you in advance for your clarification. Last Revision, March 2015 Darrin Zepeda [address] [facility] [place] [address] Documentation Clarification Form Date: 02/08/2017 11:53:00 AM From: Jelly Green Admit Date: 02/08/2017 7:55:00 AM Patient Name: Isidra Teran Visit Number: [id number] Discharge Date: Dr. Mohini Dillon Accelerated hypertension (Essential hypertension) is documented in your H&P and progress notes. Patient history/risk factors: Dm type 2, Hypertension, Thyroid disorder, Former smoker Clinical Indicators: Present with left flank pain, palpitations and shortness of breath. On admission blood pressure was elevated. 246/105 77, 20 98.3, 258/ 119 70, 218/134 67, 18, 229/100 70 18, 02/08/17 Elevated blood pressure with patient complaints of headaches. Vital signs: 182/78 60 16 98.1. He is alert and orientated x3. Lab findings: BUN 14 Cr, 0.76, Other Clinical Indicators: Stress Lab Blood pressure 223/96, 172/81, 184/81 Stress test canceled. Treatment: Monitor Vital signs/Telemetry Lisinopril PO Apresoline IVP Norvasc PO Coreg PO Catapress PRN per orders In your professional opinion, can you please further clarify if the accelerated hypertension (Essential Hypertension) meets the criteria for? Hypertensive crisis: according to the [place] [employer], Hypertensive crisis is defined as two consecutive blood pressure readings with a systolic bp > 180mmHG OR diastolic BP> 110 mmHG. Hypertensive Urgency: Hypertensive crisis without organ damage. Symptoms may or nay not be present, but can include: severe headache, shortness of breathing, nose bleed, severe anxiety. Treatment: adjustment of oral blood pressure medications. IV medication is not usually required. Hypertensive Emergency: Hypertensive crisis with organ damage. These patients require immediate treatment of blood pressure, most often with IV medications. Symptoms are consistent with the organ damage that has occurred: chest pain back pain, difficulty speaking, numbness/weakness, shortness of breath, visual changes. Other Unable to determine Please document in your progress notes and discharge summary in order to capture severity of illness and risk of mortality. Include clinical findings that support your diagnosis. FYI: Press F11 to launch patient chart. TIMMY
[2017-02-08] MEDS ORDERED: hydrALAZINE HCL 20 MG/ML 1 ML VIAL IVP PRN (14:27)
[2017-02-08] MEDS: CHLORTHALIDONE 25 MG TAB PO SCH (15:29)
[2017-02-08] MEDS: hydrALAZINE HCL 25 MG TAB PO SCH ×2 (16:32→20:59)
[2017-02-08 17:20] LABS: Glucose,Whole Blood 184 mg/dL (75-99)
[2017-02-08 20:10] LABS: Glucose,Whole Blood 411 mg/dL (75-99)
[2017-02-08] MEDS: amLODIPine 10 MG TAB PO SCH (20:59)
[2017-02-08] MEDS: INSULIN GLARGINE 100 UNIT/ML 10 ML VIAL SQ SCH (20:59)
[2017-02-09] MEDS: ACETAMINOPHEN TAB 325 MG TAB PO PRN (01:35)
[2017-02-09 01:37] LABS: Glucose,Whole Blood 233 mg/dL (75-99)
[2017-02-09 07:22] LABS: Glucose,Whole Blood 248 mg/dL (75-99)
[2017-02-09 07:26] LABS: Bacteria,Urine Rare /hpf; Particle Count 5987; RBC,Urine >182 /hpf (0-5); WBC,Urine >182 /hpf (0-5)
[2017-02-09 07:28] LABS: Appearance,Urine Bloody (Clear)
[2017-02-09 07:29] LABS: UA Billing (MACRO vs. MICRO) MICRO
[2017-02-09] MEDS: LEVOTHYROXINE 75 MCG TAB PO SCH (09:06)
[2017-02-09 10:00] LABS: Glucose,Whole Blood 242 mg/dL (75-99)
[2017-02-09] MEDS: EZETIMIBE 10 MG TAB PO SCH (10:02)
[2017-02-09] MEDS: LISINOPRIL 20 MG TAB PO SCH ×2 (10:02→21:29)
[2017-02-09] MEDS: hydrALAZINE HCL 25 MG TAB PO SCH ×3 (10:02→22:29)
[2017-02-09] MEDS: ATORVASTATIN 10 MG TAB PO SCH (10:02)
[2017-02-09] MEDS: INSULIN LISPRO (humaLOG) 300 UNIT/3 ML VIAL SQ SCH ×4 (10:03→20:59)
[2017-02-09] MEDS: CHLORTHALIDONE 25 MG TAB PO SCH (10:03)
[2017-02-09] MEDS: ASPIRIN 325 MG TAB PO SCH (10:03)
[2017-02-09] MEDS: CARVEDILOL 12.5 MG TAB PO SCH ×2 (10:03→17:47)
[2017-02-09] MEDS: ESCITALOPRAM 10 MG TAB PO SCH (10:03)
[2017-02-09 10:17] LABS: Mucus,Urine Rare /hpf; Particle Count 34040; RBC,Urine >182 /hpf (0-5); WBC,Urine 48 /hpf (0-5)
[2017-02-09 10:35] LABS: Appearance,Urine Bloody (Clear); UA Billing (MACRO vs. MICRO) MICRO
[2017-02-09 10:36] LABS: Basophils % (A) 0 %; CH 27.6; CHCM 33.1; Eosinophils # (A) 0.1 k/uL (0-0.7); Eosinophils % (A) 1 %; HCT 40.5 % (34.0-46.0); HDW 2.75; HGB 12.9 gm/dL (11.4-16.0); Luc # (Auto) 0.16; Luc % (Auto) 1; Lymphocytes # (A) 0.9 k/uL (1.0-4.8); Lymphocytes % (A) 7 %; MCH 26.6 pg (25.0-35.0); MCHC 31.7 g/dL (31.0-37.0); MCV 83.7 fL (80.0-100.0); Mean Platelet Volume 6.8; Monocytes # (A) 0.6 k/uL (0-1.0); Monocytes % (A) 5 %; Neutrophils # (A) 10.2 k/uL (1.3-7.7); Neutrophils % (A) 85 %; RBC 4.84 m/uL (3.80-5.40); RDW 14.6 % (11.5-15.5)
[2017-02-09 10:45] LABS: Partial Thromboplastin Time 24.6 sec (22.0-30.0); Prothrombin Time 10.6 sec (9.0-12.0)
--- NOTE | 2017-02-09 10:49 | P.GSCN ---
History of Present Illness Consult date: 02/09/17 Reason for Consult: Hematuria History of present illness: Patient is a pleasant 76-year-old female who was admitted to the hospital with dyspnea. This had gone on a few days. She has a history of an irregular heartbeat. There is some question of left flank pain. She had a clear urine on admission. She voided today with gross hematuria. The urine looked somewhat inflamed. We are asked see the patient. Historically she has had one cystitis many years ago. There is no history of stones or other urologic problems. She is on aspirin only. He is feeling well. There is been some dysuria with her voiding. Review of Systems - Respiratory Reports as per HPI - Genitourinary Genitourinary: Reports dysuria, Reports hematuria Past Medical History Past Medical History: Diabetes Mellitus, Hypertension, Thyroid Disorder Additional Past Medical History / Comment(s): irregular heart beat History of Any Multi-Drug Resistant Organisms: None Reported Past Surgical History: No Surgical Hx Reported Additional Past Surgical History / Comment(s): D and C Past Anesthesia/Blood Transfusion Reactions: No Reported Reaction Past Psychological History: Anxiety Smoking Status: Former smoker Past Alcohol Use History: None Reported Past Drug Use History: None Reported - Past Family History Mother Family Medical History: Cancer Additional Family Medical History / Comment(s): Breast CA Father Family Medical History: Unable to Obtain Medications and Allergies Home Medications Medication Instructions Recorded Confirmed Type Aspirin [Adult Low Dose Aspirin EC] 81 mg PO DAILY 02/06/17 02/06/17 History Carvedilol [Coreg] 12.5 mg PO BID 02/06/17 02/06/17 History Cholecalciferol [Vitamin D3] 1,000 unit PO DAILY 02/06/17 02/06/17 History Escitalopram [Lexapro] 10 mg PO DAILY 02/06/17 02/06/17 History Ezetimibe [Zetia] 10 mg PO DAILY 02/06/17 02/06/17 History INSULIN LISPRO (HumaLOG) [HumaLOG] See Protocol SQ TID 02/06/17 02/06/17 History Insulin Glargine [Lantus] 12 unit SQ HS 02/06/17 02/06/17 History Levothyroxine Sodium [Synthroid] 88 mcg PO DAILY 02/06/17 02/06/17 History Lisinopril [Zestril] 10 mg PO BID 02/06/17 02/06/17 History Pitavastatin Calcium [Livalo] 2 mg PO DAILY 02/06/17 02/06/17 History Vitamin B Complex 1 cap PO DAILY 02/06/17 02/06/17 History Allergies Allergy/AdvReac Type Severity Reaction Status Date / Time amoxicillin Allergy Anaphylaxis Verified 02/06/17 19:34 bee venom protein (honey bee) Allergy Anaphylaxis Verified 02/06/17 19:34 Sulfa (Sulfonamide Allergy Anaphylaxis Verified 02/06/17 19:34 Antibiotics) Surgical - Exam Vital Signs Temp Pulse Resp BP Pulse Ox 98.3 F 77 20 246/106 99 02/06/17 11:29 02/06/17 11:29 02/06/17 11:29 02/06/17 11:29 02/06/17 11:29 - General well developed, well nourished, no distress - ENT no hearing loss - Neck trachea midline - Respiratory normal expansion, normal respiratory effort - Abdomen Abdomen: soft, non tender - Neurologic normal coordination, normal sensation - Musculoskeletal normal posture - Psychiatric oriented to time, oriented to person, oriented to place, speech is normal, memory intact Results - Labs 02/06/17 11:56 02/08/17 06:28 Abnormal Lab Results - Last 24 Hours (Table) 02/08/17 02/08/17 02/08/17 Range/Units 11:58 17:11 20:08 POC Glucose (mg/dL) 230 H 184 H 411 H (75-99) mg/dL Urine Appearance (Clear) Urine RBC (0-5) /hpf Urine WBC (0-5) /hpf Urine Bacteria (None) /hpf Urine Mucus (None) /hpf 02/09/17 02/09/17 02/09/17 Range/Units 01:05 06:27 07:11 POC Glucose (mg/dL) 233 H 248 H (75-99) mg/dL Urine Appearance Bloody H (Clear) Urine RBC >182 H (0-5) /hpf Urine WBC >182 H (0-5) /hpf Urine Bacteria Rare H (None) /hpf Urine Mucus (None) /hpf 02/09/17 02/09/17 Range/Units 09:33 09:58 POC Glucose (mg/dL) 242 H (75-99) mg/dL Urine Appearance Bloody H (Clear) Urine RBC >182 H (0-5) /hpf Urine WBC 48 H (0-5) /hpf Urine Bacteria (None) /hpf Urine Mucus Rare H (None) /hpf Assessment and Plan Plan: Impression: Gross hematuria. Abnormal urinalysis rule out urine infection. Recommendations: The patient has new-onset hematuria. Her microscopic urine looks inflamed if not infected. Possible that she has a hemorrhagic cystitis. She should be treated as he urine infection until the cultures back. If the culture is positive antibiotic treatment with a follow-up urinalysis is appropriate. If the culture is negative she'll need a hematuria evaluation as an outpatient.
--- NOTE | 2017-02-09 11:04 | US ---
EXAMINATION TYPE: US renal artery duplex complet DATE OF EXAM: 02/09/2017 COMPARISON: NONE CLINICAL HISTORY: htn. Patient stated had HTN episode on Tuesday EC visit for cardiac arrhythmia; curr ently has UTI with hematuria; diabetic MEASUREMENTS: RENAL SIZE: Rt Kidney: 9.8 x 4.9 x 3.2cm Lt Kidney: 10.1 x 4.5 x 4.0cm RESISTANCE INDEX Right: 0.74 Left: 0.70 RA/AO RATIO (< 3.5 ) Right: 1.8 Left: 1.6 RA VELOCITY ( < 180 cm/s) Right: 155.0cm/s mid Left: 138.9cm/s mid Aorta: Intimal wall changes at irregular intervals imaged throughout aorta. Aorta size is wnl. Right Kidney: Upper mid cortical cyst = 1.4 x 1.3 x 1.4cm; Color flow is well seen to renal periphe ry. Left Kidney: no hydronephrosis or masses seen; color flow is well seen to periphery. Bladder was imaged due to UTI: thick walled with internal debris and not fully dilated; bilateral ure teral jets are seen. Renal Artery Duplex: PSV is wnl in bilateral renal artery. RI and RA/AO ratios are wnl bilaterally. Incidental finding: gallstone(s) are noted in gallbladder. IMPRESSION: 1. No diagnostic evidence of renal artery stenosis. 2. Cholelithiasis 3. The bladder wall is somewhat thickened with internal debris correlate for infectious etiology. 4. Indeterminate lesion involving the right kidney. Does not meet the criteria of simple cyst by ultr asound. Consider MRI.
[2017-02-09 11:29] LABS: Glucose,Whole Blood 369 mg/dL (75-99)
--- NOTE | 2017-02-09 12:10 | P.NPCON ---
History of Present Illness - Reason for Consult accelerated hypertension - History of Present Illness reason for consultation: Hypertension History of present illness: Patient is a 76-year-old female seen in renal consultation for accelerated hypertension. Patient presented to the hospital with racing heart and chest pain. She was also having headaches. Her blood pressure was greater than 200 systolic during this admission. It is much better controlled today. Her dose of lisinopril was increased to 20 mg twice daily. She was also started on amlodipine 10 mg daily as well as hydralazine 25 mg daily. I also had a day Garett diuretic yesterday. She does feel better today. No further chest pain. Denies vomiting or diarrhea. Oral intake is fair. Admits to good urine output. She did develop hematuria this admission. She is being followed by urology. There is concern for UTI. She also underwent a renal duplex ultrasound which suggested no evidence of renal artery stenosis. No evidence of adrenal mass was noted. She denies any family history of hypertension. Vital signs are stable. General: The patient appeared well nourished and normally developed. HEENT: Head exam is unremarkable. Neck is without jugular venous distension. LUNGS: Lungs are clear to auscultation and percussion. Breath sounds decreased. HEART: Rate and Rhythm are regular. First and second heart sounds normal. No murmurs, rubs or gallops. ABDOMEN: Abdominal exam reveals normal bowel sounds. Non-tender and non- distended. No evidence of peritonitis. EXTREMITITES: No clubbing, cyanosis, or edema. Past Medical History Past Medical History: Diabetes Mellitus, Hypertension, Thyroid Disorder Additional Past Medical History / Comment(s): irregular heart beat History of Any Multi-Drug Resistant Organisms: None Reported Past Surgical History: No Surgical Hx Reported Additional Past Surgical History / Comment(s): D and C Past Anesthesia/Blood Transfusion Reactions: No Reported Reaction Past Psychological History: Anxiety Smoking Status: Former smoker Past Alcohol Use History: None Reported Past Drug Use History: None Reported - Past Family History Mother Family Medical History: Cancer Additional Family Medical History / Comment(s): Breast CA Father Family Medical History: Unable to Obtain Medications and Allergies Home Medications Medication Instructions Recorded Confirmed Type Aspirin [Adult Low Dose Aspirin EC] 81 mg PO DAILY 02/06/17 02/06/17 History Carvedilol [Coreg] 12.5 mg PO BID 02/06/17 02/06/17 History Cholecalciferol [Vitamin D3] 1,000 unit PO DAILY 02/06/17 02/06/17 History Escitalopram [Lexapro] 10 mg PO DAILY 02/06/17 02/06/17 History Ezetimibe [Zetia] 10 mg PO DAILY 02/06/17 02/06/17 History INSULIN LISPRO (HumaLOG) [HumaLOG] See Protocol SQ TID 02/06/17 02/06/17 History Insulin Glargine [Lantus] 12 unit SQ HS 02/06/17 02/06/17 History Levothyroxine Sodium [Synthroid] 88 mcg PO DAILY 02/06/17 02/06/17 History Lisinopril [Zestril] 10 mg PO BID 02/06/17 02/06/17 History Pitavastatin Calcium [Livalo] 2 mg PO DAILY 02/06/17 02/06/17 History Vitamin B Complex 1 cap PO DAILY 02/06/17 02/06/17 History Allergies Allergy/AdvReac Type Severity Reaction Status Date / Time amoxicillin Allergy Anaphylaxis Verified 02/06/17 19:34 bee venom protein (honey bee) Allergy Anaphylaxis Verified 02/06/17 19:34 Sulfa (Sulfonamide Allergy Anaphylaxis Verified 02/06/17 19:34 Antibiotics) Physical Exam Vitals: Vital Signs Temp Pulse Pulse Resp BP BP Pulse Ox 02/09/17 10:33 82 18 02/09/17 09:00 79 18 139/73 98 02/09/17 07:29 97.7 F 82 18 127/76 96 02/08/17 21:05 97.2 F L 67 16 152/71 96 02/08/17 15:12 98.3 F 66 16 139/77 97 Intake and Output 02/08/17 02/09/17 02/09/17 22:59 06:59 14:59 Intake Total 236 Balance 236 Intake: Oral 236 Other: Voiding Method Toilet Toilet # Voids 1 1 Results - Lab Results Most recent lab results Calcium 9.3 mg/dL (8.4-10.2) 02/08/17 06:28 Magnesium 1.8 mg/dL (1.6-2.3) 02/06/17 11:56 02/09/17 10:20 02/08/17 06:28 Assessment and Plan Plan: assessment: #1. Accelerated hypertension. No evidence of renal artery stenosis. No adrenal mass noted on renal ultrasound. Now better controlled. #2. Hematuria being followed by urology. Likely UTI. plan: Continue with current antihypertensives. Also check for secondary causes of hypertension including plasma metanephrines. Renin and aldosterone were also drawn but will not be accurate in the setting of MARCELLE inhibitor. Check urine culture. Start Rocephin 1 g IV 24 hours. check electrolytes tomorrow morning. Thank you for the consultation. I will continue to follow the patient with you during her hospital stay.
[2017-02-09] MEDS: B COMPLEX-VIT C-VIT E-ZINC 1 EACH TAB PO SCH (12:59)
[2017-02-09] MEDS: CHOLECALCIFEROL 1,000 UNIT TAB PO SCH (12:59)
--- NOTE | 2017-02-09 14:17 | P.PN ---
Subjective Principal diagnosis: patient is seen and examined, in follow up for uncontrolled blood pressure and new onset hematuria 76 year old female with PMHx of hypertension, hypothyroidism, and hyperlipidemia. Patient presented with dyspnea and atypical chest pain, she was transferred from the observation unit due to uncontrolled blood pressure, despite using multiple agents. patient reported that she developed hypertension at age of 64 which really warrants workup for secondary causes of hypertension that she reports that never been done before,. nephrology is assisting in that regard. Today she developed sudden onset hematuria and dysuria which is suspicious for urinary tract infection. patient denies any fevers. however ; does admit to mild suprapubic discomfort and fullness. Otherwise she denies any chills, fever, nausea or vomiting, denies any vaginal bleeding or rectal bleeding. She has not been on blood thinners . Objective - Vital Signs Vital signs: Vital Signs Temp 97.7 F 02/09/17 07:29 Pulse 82 02/09/17 10:33 Resp 18 02/09/17 10:33 BP 139/73 02/09/17 09:00 Pulse Ox 98 02/09/17 09:00 Intake & Output 02/08/17 02/09/17 02/09/17 18:59 06:59 18:59 Intake Total 236 Balance 236 Intake: Oral 236 Other: Voiding Method Toilet Toilet Toilet # Voids 1 - Exam Constitutional: vital signs stable, Not in acute distress, pleasant, conversant Lungs: Clear to auscultation bilaterally, clear to percussion, normal respiratory effort Cardiovascular: Regular rate and rhythm, no murmurs, no gallops, no rubs, no peripheral edema Gastrointestinal: Soft, no tenderness to palpation but slight discomfort to deep palpation of the suprapubic region, denies any tenderness to percussion of the costovertebral angle, no palpable hepatosplenomegally, bowel sounds positive , no abdominal wall hernias Extremities: No digital cyanosis or clubbing, no calf muscle tenderness Psych: Alert, oriented to place, person and time - Labs CBC & Chem 7: 02/09/17 10:20 02/08/17 06:28 Labs: Abnormal Lab Results - Last 24 Hours (Table) 02/08/17 02/08/17 02/09/17 Range/Units 17:11 20:08 01:05 WBC (3.8-10.6) k/uL Neutrophils # (1.3-7.7) k/uL Lymphocytes # (1.0-4.8) k/uL POC Glucose (mg/dL) 184 H 411 H 233 H (75-99) mg/dL Urine Appearance (Clear) Urine RBC (0-5) /hpf Urine WBC (0-5) /hpf Urine Bacteria (None) /hpf Urine Mucus (None) /hpf 02/09/17 02/09/17 02/09/17 Range/Units 06:27 07:11 09:33 WBC (3.8-10.6) k/uL Neutrophils # (1.3-7.7) k/uL Lymphocytes # (1.0-4.8) k/uL POC Glucose (mg/dL) 248 H (75-99) mg/dL Urine Appearance Bloody H Bloody H (Clear) Urine RBC >182 H >182 H (0-5) /hpf Urine WBC >182 H 48 H (0-5) /hpf Urine Bacteria Rare H (None) /hpf Urine Mucus Rare H (None) /hpf 02/09/17 02/09/17 02/09/17 Range/Units 09:58 10:20 11:27 WBC 12.0 H (3.8-10.6) k/uL Neutrophils # 10.2 H (1.3-7.7) k/uL Lymphocytes # 0.9 L (1.0-4.8) k/uL POC Glucose (mg/dL) 242 H 369 H (75-99) mg/dL Urine Appearance (Clear) Urine RBC (0-5) /hpf Urine WBC (0-5) /hpf Urine Bacteria (None) /hpf Urine Mucus (None) /hpf Microbiology - Last 24 Hours (Table) 02/09/17 06:27 Urine Culture - Preliminary Urine,Voided Assessment and Plan (1) Acute UTI Narrative/Plan: not present on admission, not associated with murguia catheter urinalysis reveals possible urinary tract infection this is also supported by bladder wall thickening that could represent cystitis which was viewed on the renal artery ultrasound patient has anaphylactic reaction to amoxicillin, and sulfa I will start her on Levofloxacin, patient was counseled regarding side effects of tendon rupture and prolonged QT patient will be monitored overnight , cardiac monitoring follow up urine cultures urology evaluated the patient , and agreed with management of possible UTI, and to follow up outpatient for further workup of other causes of hematuria once UTI treated, including but not limited to , renal cancer Status: Acute (2) Hematuria Narrative/Plan: sudden onset , possibly due to UTI, r/o renal cancer among other causes urology following OP workup for other causes of hematuria as mentioned above Status: Acute (3) Lesion of right algaaciq kidney Narrative/Plan: incidental finding recommendations for OP MRI of the kidneys OP follow up with urology Status: Acute (4) Brittle diabetes mellitus Narrative/Plan: increase lantus dose to 14 units HS hyperglycemia is most likely driven by underlying infection continue with insulin sliding scale for corrective doses Status: Chronic (5) DVT prophylaxis Narrative/Plan: SCDs only , due to hematuria Status: Acute (6) Accelerated hypertension Narrative/Plan: blood pressure is better controlled now continue workup for secondary causes of hypertension per nephrology continue with current medication s Status: Acute (7) Dyslipidemia Narrative/Plan: contineu statin Status: Chronic (8) Hypothyroidism Narrative/Plan: continue synthroid Status: Chronic Plan: more than 42 minutes were spent with this patient evaluation, and counseling done in two separate occasions today to discuss plan of care of her new development of hematuria Time with Patient: Greater than 30
[2017-02-09] MEDS ORDERED: LEVOFLOXACIN 750MG-D5W PMX 750 MG in DEXTROSE/WATER 1 150ML.BAG IVPB SCH (15:00)
[2017-02-09 15:09] LABS: Anion Gap 13 mmol/L; Blood Urea Nitrogen 15 mg/dL (7-17); Calcium 10.2 mg/dL (8.4-10.2); Carbon Dioxide 23 mmol/L (22-30); Chloride 101 mmol/L (98-107); Glucose 245 mg/dL (74-99); Non-African American GFR(MDRD) >60 (>60 ml/min/1.73 sqM); Potassium 3.7 mmol/L (3.5-5.1); Sodium 137 mmol/L (137-145)
[2017-02-09 17:21] LABS: Glucose,Whole Blood 319 mg/dL (75-99)
[2017-02-09 20:02] LABS: Glucose,Whole Blood 246 mg/dL (75-99)
[2017-02-09] MEDS: INSULIN GLARGINE 100 UNIT/ML 10 ML VIAL SQ SCH (21:25)
[2017-02-09] MEDS: amLODIPine 10 MG TAB PO SCH (21:30)
[2017-02-10 07:35] LABS: Glucose,Whole Blood 204 mg/dL (75-99)
[2017-02-10] MEDS: ACETAMINOPHEN TAB 325 MG TAB PO PRN (07:46)
[2017-02-10] MEDS: EZETIMIBE 10 MG TAB PO SCH (07:48)
[2017-02-10] MEDS: LEVOTHYROXINE 75 MCG TAB PO SCH (07:48)
[2017-02-10] MEDS: LISINOPRIL 20 MG TAB PO SCH ×2 (07:48→23:13)
[2017-02-10] MEDS: hydrALAZINE HCL 25 MG TAB PO SCH (07:48)
[2017-02-10] MEDS: ESCITALOPRAM 10 MG TAB PO SCH (07:48)
[2017-02-10] MEDS: CARVEDILOL 12.5 MG TAB PO SCH ×2 (07:49→18:07)
[2017-02-10] MEDS: INSULIN LISPRO (humaLOG) 300 UNIT/3 ML VIAL SQ SCH ×5 (07:49→20:26)
[2017-02-10] MEDS: CHLORTHALIDONE 25 MG TAB PO SCH (07:49)
[2017-02-10] MEDS: ATORVASTATIN 10 MG TAB PO SCH (07:49)
[2017-02-10 08:38] LABS: Basophils % (A) 1 %; CHCM 32.6; Eosinophils # (A) 0.1 k/uL (0-0.7); Eosinophils % (A) 3 %; HCT 40.2 % (34.0-46.0); HDW 2.66; HGB 13.3 gm/dL (11.4-16.0); Luc # (Auto) 0.19; Luc % (Auto) 4; Lymphocytes # (A) 1.1 k/uL (1.0-4.8); Lymphocytes % (A) 21 %; MCH 27.5 pg (25.0-35.0); MCHC 33.1 g/dL (31.0-37.0); MCV 83.2 fL (80.0-100.0); Mean Platelet Volume 6.2; Monocytes # (A) 0.5 k/uL (0-1.0); Monocytes % (A) 9 %; Neutrophils # (A) 3.2 k/uL (1.3-7.7); Neutrophils % (A) 63 %; RBC 4.83 m/uL (3.80-5.40); RDW 14.1 % (11.5-15.5); WBC 5.1 k/uL (3.8-10.6); WBC (Perox) 5.38
[2017-02-10 08:49] LABS: Glucose,Whole Blood 233 mg/dL (75-99)
[2017-02-10 08:56] LABS: Anion Gap 12 mmol/L; Blood Urea Nitrogen 17 mg/dL (7-17); Calcium 10.1 mg/dL (8.4-10.2); Carbon Dioxide 26 mmol/L (22-30); Chloride 100 mmol/L (98-107); Glucose 213 mg/dL (74-99); Magnesium 1.6 mg/dL (1.6-2.3); Non-African American GFR(MDRD) 58 (>60 ml/min/1.73 sqM); Potassium 4.1 mmol/L (3.5-5.1); Sodium 138 mmol/L (137-145)
--- NOTE | 2017-02-10 10:09 | P.PN ---
Subjective Principal diagnosis: Elevated blood pressure Patient had syncopal episode this morning, denies any further hematuria, no dysuria, no chest pains, no palpitations and no fever and chills, she says she still feels weak at this point and somewhat dizzy Objective - Vital Signs Vital signs: Vital Signs Temp 98 F 02/10/17 07:00 Pulse 67 02/10/17 09:00 Resp 18 02/10/17 09:00 BP 131/61 02/10/17 09:00 Pulse Ox 98 02/10/17 09:00 Intake & Output 02/09/17 02/10/17 02/10/17 18:59 06:59 18:59 Intake Total 250 Balance 250 Intake: Oral 250 Other: Voiding Method Toilet Toilet Toilet # Voids 5 1 - Exam gen:alert and oriented lungs:clear to auscultation,no crackles, no wheezes heart:s1s2 abdomen:soft and depressible,non tender ext:no edema - Labs CBC & Chem 7: 02/10/17 07:52 02/10/17 07:52 Labs: Abnormal Lab Results - Last 24 Hours (Table) 02/09/17 02/09/17 02/09/17 Range/Units 07:02 09:33 09:58 WBC (3.8-10.6) k/uL Neutrophils # (1.3-7.7) k/uL Lymphocytes # (1.0-4.8) k/uL Glucose 245 H (74-99) mg/dL POC Glucose (mg/dL) 242 H (75-99) mg/dL Urine Appearance Bloody H (Clear) Urine RBC >182 H (0-5) /hpf Urine WBC 48 H (0-5) /hpf Urine Mucus Rare H (None) /hpf 02/09/17 02/09/17 02/09/17 Range/Units 10:20 11:27 17:20 WBC 12.0 H (3.8-10.6) k/uL Neutrophils # 10.2 H (1.3-7.7) k/uL Lymphocytes # 0.9 L (1.0-4.8) k/uL Glucose (74-99) mg/dL POC Glucose (mg/dL) 369 H 319 H (75-99) mg/dL Urine Appearance (Clear) Urine RBC (0-5) /hpf Urine WBC (0-5) /hpf Urine Mucus (None) /hpf 02/09/17 02/10/17 02/10/17 Range/Units 20:01 07:29 07:52 WBC (3.8-10.6) k/uL Neutrophils # (1.3-7.7) k/uL Lymphocytes # (1.0-4.8) k/uL Glucose 213 H (74-99) mg/dL POC Glucose (mg/dL) 246 H 204 H (75-99) mg/dL Urine Appearance (Clear) Urine RBC (0-5) /hpf Urine WBC (0-5) /hpf Urine Mucus (None) /hpf 02/10/17 Range/Units 08:42 WBC (3.8-10.6) k/uL Neutrophils # (1.3-7.7) k/uL Lymphocytes # (1.0-4.8) k/uL Glucose (74-99) mg/dL POC Glucose (mg/dL) 233 H (75-99) mg/dL Urine Appearance (Clear) Urine RBC (0-5) /hpf Urine WBC (0-5) /hpf Urine Mucus (None) /hpf Microbiology - Last 24 Hours (Table) 02/09/17 09:33 Urine Culture - Preliminary Urine,Catheterized 02/09/17 06:27 Urine Culture - Preliminary Urine,Voided Assessment and Plan (1) Syncope and collapse Narrative/Plan: Suspect secondary to decrease all blood pressure aggressively as we have done. I did discuss with Dr. Hernandez will be making appropriate changes. Patient was not able to tolerate to perform orthostatics Status: Acute (2) Accelerated hypertension Narrative/Plan: Blood pressure 120s to 130s systolic, I did discuss with Dr. Hernandez that we might have brought down her blood pressure too quickly he will be seeing the patient's wound and make appropriate adjustments. For now I'm asking the nurse she will hold on giving hydralazine which is due at 4. Status: Acute (3) Acute UTI Narrative/Plan: Patient developed prolonged QT is on Levaquin. So we will discontinue. I did discuss with pharmacy, fosfomycin is not available here, cultures are still pending. We'll start patient on azactam while inpatient now. Status: Acute (4) Hematuria Narrative/Plan: Hematuria seems to be resolved at this time, we will need to follow up with urology as an outpatient Status: Acute (5) Atypical chest pain Status: Acute (6) Dyslipidemia Status: Chronic (7) Hypothyroidism Status: Chronic Plan: Plan as described above we'll await evaluation from Dr. Alvarenga for appropriate blood pressure adjustments. We'll start patient on azactam for UTI treatment. She will need to obviously be monitored overnight
--- NOTE | 2017-02-10 11:06 | P.PN ---
Subjective Patient is seen in follow-up for hypertension. Her blood pressure on admission was greater than 200 systolic. Multiple blood pressure medications were added. Her blood pressures were relatively well controlled however she had a syncopal episode this morning. Orthostatics were just done and his standing blood pressure was in the systolic 80s. She is currently resting in bed. She feels better. No vomiting or diarrhea. Oral intake is fair. Vital signs are stable. General: The patient appeared well nourished and normally developed. HEENT: Head exam is unremarkable. Neck is without jugular venous distension. LUNGS: Lungs are clear to auscultation and percussion. Breath sounds decreased. HEART: Rate and Rhythm are regular. First and second heart sounds normal. No murmurs, rubs or gallops. ABDOMEN: Abdominal exam reveals normal bowel sounds. Non-tender and non- distended. No evidence of peritonitis. EXTREMITITES: No clubbing, cyanosis, or edema. Objective - Vital Signs Vital signs: Vital Signs Temp 98 F 02/10/17 07:00 Pulse 73 02/10/17 10:20 Resp 18 02/10/17 10:20 BP 140/67 02/10/17 10:20 Pulse Ox 97 02/10/17 10:20 Intake & Output 02/09/17 02/10/17 02/10/17 18:59 06:59 18:59 Intake Total 250 Balance 250 Intake: Oral 250 Other: Voiding Method Toilet Toilet Toilet # Voids 5 1 - Labs CBC & Chem 7: 02/10/17 07:52 02/10/17 07:52 Labs: Abnormal Lab Results - Last 24 Hours (Table) 02/09/17 02/09/17 02/09/17 Range/Units 07:02 11:27 17:20 Glucose 245 H (74-99) mg/dL POC Glucose (mg/dL) 369 H 319 H (75-99) mg/dL 02/09/17 02/10/17 02/10/17 Range/Units 20:01 07:29 07:52 Glucose 213 H (74-99) mg/dL POC Glucose (mg/dL) 246 H 204 H (75-99) mg/dL 02/10/17 Range/Units 08:42 Glucose (74-99) mg/dL POC Glucose (mg/dL) 233 H (75-99) mg/dL Microbiology - Last 24 Hours (Table) 02/09/17 09:33 Urine Culture - Preliminary Urine,Catheterized 02/09/17 06:27 Urine Culture - Preliminary Urine,Voided Assessment and Plan Plan: assessment: #1. Accelerated hypertension. No evidence of renal artery stenosis. No adrenal mass noted on renal ultrasound. Patient orthostatic this morning. #2. Hematuria being followed by urology. Likely UTI. Plan: Discontinue hydralazine, chlorthalidone as well as amlodipine. Continue with lisinopril and Coreg for now. Continue to monitor orthostatic vital signs closely. To hold antihypertensives for standing systolic blood pressure less than 130. Follow-up urine culture.
[2017-02-10 11:36] LABS: Glucose,Whole Blood 246 mg/dL (75-99)
[2017-02-10] MEDS: CHOLECALCIFEROL 1,000 UNIT TAB PO SCH (13:07)
[2017-02-10] MEDS: B COMPLEX-VIT C-VIT E-ZINC 1 EACH TAB PO SCH (13:07)
--- NOTE | 2017-02-10 13:32 | P.CONS ---
History of Present Illness - Reason for Consult Consult date: 02/10/17 urinary tract infections antibiotic recommendation Requesting physician: Mohini Dillon - Chief Complaint Elevated blood pressure and hematuria - History of Present Illness Patient is a 76 female who presented to [facility] ER on 02/06 which she complains of racing heart, weakness feeling shaky and elevated blood pressure. Her symptoms been going on for the last few days prior to presentation to Hospital, patient did have a workup including a angiogram of the chest that was negative for PE and no evidence of pneumonia, patient did have a normal UA on admission however yesterday the patient did have gross hematuria , her urinary symptoms started in the morning and kind of resolved by the end of the day the patient was having some symptom of burning frequency of urine and some suprapubic discomfort but no flank pain no nausea no vomiting patient was started on Levaquin with concern for QT prolongation that was discontinued in view her amoxicillin ALLERGY she was started on Azactam and ID was consulted for further recommendation regarding antibiotic therapy Review of Systems Review of system Constitutional: The patient denies any fever but positive for chills, the patient does complain of weakness. Eyes: No complaint ENT: No complaint Respiratory: As per HPI Cardiovascular: No complaint Gastrointestinal: No complaint Genitourinary: As per HPI Musculoskeletal: No complaint Integumentary: No complaint Endocrine : No complaint Psycologial : No complaint Neurological: No complaint. Past Medical History Past Medical History: Diabetes Mellitus, Hypertension, Thyroid Disorder Additional Past Medical History / Comment(s): irregular heart beat History of Any Multi-Drug Resistant Organisms: None Reported Past Surgical History: No Surgical Hx Reported Additional Past Surgical History / Comment(s): D and C Past Anesthesia/Blood Transfusion Reactions: No Reported Reaction Past Psychological History: Anxiety Smoking Status: Former smoker Past Alcohol Use History: None Reported Past Drug Use History: None Reported - Past Family History Mother Family Medical History: Cancer Additional Family Medical History / Comment(s): Breast CA Father Family Medical History: Unable to Obtain Medications and Allergies Home Medications Medication Instructions Recorded Confirmed Type Aspirin [Adult Low Dose Aspirin EC] 81 mg PO DAILY 02/06/17 02/06/17 History Carvedilol [Coreg] 12.5 mg PO BID 02/06/17 02/06/17 History Cholecalciferol [Vitamin D3] 1,000 unit PO DAILY 02/06/17 02/06/17 History Escitalopram [Lexapro] 10 mg PO DAILY 02/06/17 02/06/17 History Ezetimibe [Zetia] 10 mg PO DAILY 02/06/17 02/06/17 History INSULIN LISPRO (HumaLOG) [HumaLOG] See Protocol SQ TID 02/06/17 02/06/17 History Insulin Glargine [Lantus] 12 unit SQ HS 02/06/17 02/06/17 History Levothyroxine Sodium [Synthroid] 88 mcg PO DAILY 02/06/17 02/06/17 History Lisinopril [Zestril] 10 mg PO BID 02/06/17 02/06/17 History Pitavastatin Calcium [Livalo] 2 mg PO DAILY 02/06/17 02/06/17 History Vitamin B Complex 1 cap PO DAILY 02/06/17 02/06/17 History Allergies Allergy/AdvReac Type Severity Reaction Status Date / Time amoxicillin Allergy Anaphylaxis Verified 02/06/17 19:34 bee venom protein (honey bee) Allergy Anaphylaxis Verified 02/06/17 19:34 Sulfa (Sulfonamide Allergy Anaphylaxis Verified 02/06/17 19:34 Antibiotics) Physical Exam Vitals: Vital Signs Temp Pulse Pulse Resp BP BP BP 02/10/17 10:20 73 18 109/58 89/41 02/10/17 09:00 67 18 02/10/17 08:30 77 18 02/10/17 07:00 98 F 93 18 02/09/17 22:27 68 02/09/17 19:52 98.1 F 75 02/09/17 17:49 77 129/58 02/09/17 16:29 97.9 F 75 16 02/09/17 16:00 75 18 BP BP Pulse Ox 02/10/17 10:20 140/67 97 02/10/17 09:00 131/61 98 02/10/17 08:30 157/76 94 L 02/10/17 07:00 129/70 97 02/09/17 22:27 139/62 02/09/17 19:52 124/63 02/09/17 17:49 02/09/17 16:29 164/77 97 02/09/17 16:00 Intake and Output 02/09/17 02/10/17 02/10/17 22:59 06:59 14:59 Intake Total 250 Balance 250 Intake: Oral 250 Other: Voiding Method Toilet Toilet # Voids 1 1 General: The patient is awake and alert, in no distress. Skin: no rashes or lesions are noted no masses palpable. Eye: Pupils are equal, round and reactive to light, there is normal conjunctiva bilaterally. Ears, nose, mouth and throat: There are moist mucous membranes and no oral lesions. Neck: The neck is supple, there is no thyromegaly. Cardiovascular: S1-S2 regular rate and rhythm. No murmur. Respiratory: Unlabored breathing clear to auscultation bilaterally Gastrointestinal: Soft, non-distended, non-tender abdomen without masses or organomegaly noted. Back: There is no tenderness to palpation in the midline. There is no obvious deformity. Neurological: There are no obvious motor or sensory deficits. Coordination appears grossly intact. Speech is normal. Psychiatric: Patient is awake and alert and oriented 3, appropriate mood & affect, normal judgment. Results CBC & Chem 7: 02/10/17 07:52 02/10/17 07:52 Labs: Abnormal Lab Results - Last 24 Hours (Table) 02/09/17 02/09/17 02/09/17 Range/Units 07:02 17:20 20:01 Glucose 245 H (74-99) mg/dL POC Glucose (mg/dL) 319 H 246 H (75-99) mg/dL 02/10/17 02/10/17 02/10/17 Range/Units 07:29 07:52 08:42 Glucose 213 H (74-99) mg/dL POC Glucose (mg/dL) 204 H 233 H (75-99) mg/dL 02/10/17 Range/Units 11:31 Glucose (74-99) mg/dL POC Glucose (mg/dL) 246 H (75-99) mg/dL Microbiology - Last 24 Hours (Table) 02/09/17 09:33 Urine Culture - Preliminary Urine,Catheterized 02/09/17 06:27 Urine Culture - Preliminary Urine,Voided Assessment and Plan (1) Acute UTI Status: Acute Plan: 1-patient with acute urinary tract infection in a patient who did have a urinary burning frequency some suprapubic discomfort in addition to the hematuria likely from enteric gram-negative pathogen 2-patient who do have an amoxicillin ALLERGY with some perioral swelling but there was no evidence of any rash or shortness of breath clinically doubt anaphylaxis 3-we will start the patient on Rocephin 1 g IV daily now on and RN has been advised to watch the patient carefully during the first dose and if the patient tolerated the Rocephin she should be able to finish therapy with oral Ceftin 4-thank you for this consultation will follow this patient along with you Time with Patient: Greater than 30
[2017-02-10 15:30] VITALS: RESP 16
[2017-02-10] MEDS ORDERED: AZTREONAM 0.5 GM in SODIUM CHLORIDE 0.9% 50 ML IVPB SCH (16:00)
[2017-02-10 16:23] LABS: Glucose,Whole Blood 342 mg/dL (75-99)
[2017-02-10 20:15] LABS: Glucose,Whole Blood 332 mg/dL (75-99)
[2017-02-10] MEDS: INSULIN GLARGINE 100 UNIT/ML 10 ML VIAL SQ SCH (20:26)
[2017-02-11] MEDS: LEVOTHYROXINE 75 MCG TAB PO SCH (06:14)
[2017-02-11 07:08] LABS: Glucose,Whole Blood 266 mg/dL (75-99)
--- NOTE | 2017-02-11 07:55 | P.PN ---
Subjective Patient is seen in follow-up for hypertension. Her blood pressure on admission was greater than 200 systolic. Multiple blood pressure medications were added. Her blood pressures were relatively well controlled however she had a syncopal episode yesterday morning. Orthostatics revealed standing blood pressure of 89/41. I discontinued her amlodipine as well as thiazide diuretic. She is currently resting in bed. She feels better. No vomiting or diarrhea. Oral intake is fair. No further syncopal episodes. Her standing blood pressures are now in the 130s. No active complaints at this time. Hematuria has resolved. Vital signs are stable. General: The patient appeared well nourished and normally developed. HEENT: Head exam is unremarkable. Neck is without jugular venous distension. LUNGS: Lungs are clear to auscultation and percussion. Breath sounds decreased. HEART: Rate and Rhythm are regular. First and second heart sounds normal. No murmurs, rubs or gallops. ABDOMEN: Abdominal exam reveals normal bowel sounds. Non-tender and non- distended. No evidence of peritonitis. EXTREMITITES: No clubbing, cyanosis, or edema. Objective - Vital Signs Vital signs: Vital Signs Temp 97.8 F 02/10/17 23:00 Pulse 75 02/10/17 15:00 Resp 16 02/10/17 23:00 BP 161/81 02/10/17 23:00 Pulse Ox 98 02/10/17 23:00 Intake & Output 02/10/17 02/11/17 02/11/17 18:59 06:59 18:59 Intake Total 100 Balance 100 Intake: Oral 100 Other: Voiding Method Toilet Toilet # Voids 2 2 - Labs CBC & Chem 7: 02/10/17 07:52 02/10/17 07:52 Labs: Abnormal Lab Results - Last 24 Hours (Table) 02/10/17 02/10/17 02/10/17 Range/Units 07:52 08:42 11:31 Glucose 213 H (74-99) mg/dL POC Glucose (mg/dL) 233 H 246 H (75-99) mg/dL 02/10/17 02/10/17 02/11/17 Range/Units 16:02 20:15 07:07 Glucose (74-99) mg/dL POC Glucose (mg/dL) 342 H 332 H 266 H (75-99) mg/dL Microbiology - Last 24 Hours (Table) 02/09/17 09:33 Urine Culture - Preliminary Urine,Catheterized Gram Neg Bacilli 02/09/17 06:27 Urine Culture - Preliminary Urine,Voided Gram Neg Bacilli Assessment and Plan Plan: Assessment: #1. Accelerated hypertension. No evidence of renal artery stenosis. No adrenal mass noted on renal ultrasound. Patient was orthostatic but now resolved. #2. Hematuria being followed by urology. Attributed to UTI. Urine culture positive for gram-negative bacilli. Plan: Continue with lisinopril and Coreg for now. Continue to monitor orthostatic vital signs closely. To hold antihypertensives for standing systolic blood pressure less than 130. Continue antibiotics.
[2017-02-11 08:00] VITALS: BP 164/86; PULSE 81; TEMP 97.4
[2017-02-11] MEDS: ESCITALOPRAM 10 MG TAB PO SCH ×2 (08:15→10:53)
[2017-02-11] MEDS: CARVEDILOL 12.5 MG TAB PO SCH (08:15)
[2017-02-11] MEDS: EZETIMIBE 10 MG TAB PO SCH (08:15)
[2017-02-11] MEDS: LISINOPRIL 20 MG TAB PO SCH (08:15)
[2017-02-11] MEDS: ATORVASTATIN 10 MG TAB PO SCH ×2 (08:15→10:53)
[2017-02-11 10:05] LABS: Anion Gap 12 mmol/L; Blood Urea Nitrogen 23 mg/dL (7-17); Calcium 9.7 mg/dL (8.4-10.2); Carbon Dioxide 23 mmol/L (22-30); Chloride 100 mmol/L (98-107); Glucose 301 mg/dL (74-99); Magnesium 1.7 mg/dL (1.6-2.3); Non-African American GFR(MDRD) 55 (>60 ml/min/1.73 sqM); Sodium 135 mmol/L (137-145)
[2017-02-11] MEDS: INSULIN LISPRO (humaLOG) 300 UNIT/3 ML VIAL SQ SCH ×2 (10:51→12:13)
[2017-02-11 10:52] LABS: Glucose,Whole Blood 543 mg/dL (75-99)
[2017-02-11 10:52] LABS: Glucose,Whole Blood 544 mg/dL (75-99)
--- NOTE | 2017-02-11 11:31 | P.DS ---
Providers Date of admission: 02/08/17 07:55 Expected date of discharge: 02/11/17 Attending physician: rBitt Cooper DO Consults: 02/08/17 12:16 Consult Physician Routine Consulting Provider: Sd Hernandze Consult Reason/Comments: resistant hypertension Do you want consulting provider notified?: Yes 02/09/17 09:46 Consult Physician Routine Consulting Provider: René Pope Consult Reason/Comments: hematuria Do you want consulting provider notified?: Yes 02/10/17 13:05 Consult Physician Routine Consulting Provider: Sen Gillis Consult Reason/Comments: uti with multiple allergies Do you want consulting provider notified?: Yes Primary care physician: Diallo Mckeon - Ronnie Diagnosis(es) (1) Syncope and collapse Current Visit: Yes Status: Acute (2) Accelerated hypertension Current Visit: Yes Status: Acute (3) Acute UTI Current Visit: Yes Status: Acute (4) Hematuria Current Visit: Yes Status: Acute (5) Atypical chest pain Current Visit: Yes Status: Acute (6) Dyslipidemia Current Visit: Yes Status: Chronic (7) Hypothyroidism Current Visit: Yes Status: Chronic Hospital Course: 76-year-old female with that. He was admitted with symptoms of atypical chest pain. The stress test was canceled secondary to patient having hypertensive urgency. In the ER patient also found to have hypertensive urgency with systolic blood pressure over 200. We adjusted her lisinopril to 20 mg twice a day with blood pressure was still running [address] Hernandez from nephrology was consulted to assist with blood pressure control. Initially on Coreg and hydralazine were added to the regimen. Blood pressure was ranging 120s and 130s. The patient became orthostatic. Patient had a syncopal episode yesterday. He had to back off from the blood pressure medications. Today patient is asymptomatic. Patient has been noncompliant with her diabetes regimen. The patient is to take her insulin before going home. Condition is admission. Her glucose has been up and down secondary to patient's noncompliance. He says that her sugars are without violence she showed 500 she would only take 3 units. This needs close follow-up as an outpatient. Patient did develop hematuria she was here. Dr. Gonsales from urology was consulted. He saw to be infectious in nature and she did have shingles started on antibiotic therapy here. But because of her multiple ALLERGIES to penicillin and sulfa. She initially was started on Levaquin which caused her continue treatment to be prolonged. So this was discontinued and infectious disease was consulted. He did start patient on ROCEPHIN WHILE SHE WAS HERE TO SEE HOW SHE TOLERATED. SEEM THAT SHE DID TOLERATE IT WELL. SO PATIENT WILL BE DISCHARGED HOME ON CEFTIN. I DID DISCUSS WITH PATIENT TO FOLLOW-UP WITH HER PRIMARY CARE PHYSICIAN ALSO WITH THE UROLOGIST AND THE PHARMACY AIDE FOR TO ASSIST HER BLOOD PRESSURE CONTROL AND FOLLOW-UP ON THE HEMATURIA. Discharge time is 34 minutes Patient Condition at Discharge: Stable Plan - Discharge Summary New Discharge Prescriptions: New Lisinopril [Zestril] 20 mg PO BID #60 tab Cefuroxime Axetil [Ceftin] 500 mg PO BID #10 tab Continue Insulin Glargine [Lantus] 12 unit SQ HS INSULIN LISPRO (HumaLOG) [humaLOG] See Protocol SQ TID Vitamin B Complex 1 cap PO DAILY Cholecalciferol [Vitamin D3] 1,000 unit PO DAILY Aspirin [Adult Low Dose Aspirin EC] 81 mg PO DAILY Pitavastatin Calcium [Livalo] 2 mg PO DAILY Ezetimibe [Zetia] 10 mg PO DAILY Levothyroxine Sodium [Synthroid] 88 mcg PO DAILY Carvedilol [Coreg] 12.5 mg PO BID Escitalopram [Lexapro] 10 mg PO DAILY Discontinued Lisinopril [Zestril] 10 mg PO BID Discharge Medication List Aspirin [Adult Low Dose Aspirin EC] 81 mg PO DAILY 02/06/17 [History] Carvedilol [Coreg] 12.5 mg PO BID 02/06/17 [History] Cholecalciferol [Vitamin D3] 1,000 unit PO DAILY 02/06/17 [History] Escitalopram [Lexapro] 10 mg PO DAILY 02/06/17 [History] Ezetimibe [Zetia] 10 mg PO DAILY 02/06/17 [History] INSULIN LISPRO (HumaLOG) [humaLOG] See Protocol SQ TID 02/06/17 [History] Insulin Glargine [Lantus] 12 unit SQ HS 02/06/17 [History] Levothyroxine Sodium [Synthroid] 88 mcg PO DAILY 02/06/17 [History] Pitavastatin Calcium [Livalo] 2 mg PO DAILY 02/06/17 [History] Vitamin B Complex 1 cap PO DAILY 02/06/17 [History] Cefuroxime Axetil [Ceftin] 500 mg PO BID #10 tab 02/11/17 [Rx] Lisinopril [Zestril] 20 mg PO BID #60 tab 02/11/17 [Rx] Follow up Appointment(s)/Referral(s): Diallo Mckeon MD [Primary Care Provider] - 1-2 days Sd Hernandez DO [STAFF PHYSICIAN] - 1 Week Seth Gonsales MD [STAFF PHYSICIAN] - 1 Week Discharge Disposition: HOME SELF-CARE
--- NOTE | 2017-02-11 12:01 | P.PN ---
Subjective Principal diagnosis: Elevated blood pressure Patient is feeling better no dizziness no headaches no chest pain no palpitation Objective - Vital Signs Vital signs: Vital Signs Temp 97.4 F L 02/11/17 07:00 Pulse 81 02/11/17 07:00 Resp 16 02/10/17 23:00 BP 164/86 02/11/17 07:00 Pulse Ox 97 02/11/17 07:00 Intake & Output 02/10/17 02/11/17 02/11/17 18:59 06:59 18:59 Intake Total 100 Balance 100 Intake: Oral 100 Other: Voiding Method Toilet Toilet Toilet # Voids 2 2 - Exam gen:alert and oriented lungs:clear to auscultation heart:s1s2 abdomen:soft and depressible,non tender ext:no edema - Labs CBC & Chem 7: 02/10/17 07:52 02/11/17 08:48 Labs: Abnormal Lab Results - Last 24 Hours (Table) 02/10/17 02/10/17 02/11/17 Range/Units 16:02 20:15 07:07 Sodium (137-145) mmol/L BUN (7-17) mg/dL Glucose (74-99) mg/dL POC Glucose (mg/dL) 342 H 332 H 266 H (75-99) mg/dL 02/11/17 02/11/17 02/11/17 Range/Units 08:48 10:47 10:50 Sodium 135 L (137-145) mmol/L BUN 23 H (7-17) mg/dL Glucose 301 H (74-99) mg/dL POC Glucose (mg/dL) 543 H 544 H (75-99) mg/dL Microbiology - Last 24 Hours (Table) 02/09/17 09:33 Urine Culture - Preliminary Urine,Catheterized Gram Neg Bacilli 02/09/17 06:27 Urine Culture - Preliminary Urine,Voided Gram Neg Bacilli Assessment and Plan (1) Syncope and collapse Narrative/Plan: Secondary to orthostasis, orthostatic blood pressures are soft at this time. Is feeling better patient has been steadily standing with no dizziness Status: Acute (2) Accelerated hypertension Narrative/Plan: Blood pressure ranging 150s to 160s with blood pressure changes. Tolerating this better. Probably she would need to have slower approach in controlling her blood pressure Status: Acute (3) Acute UTI Narrative/Plan: Patient tolerated Rocephin well no signs of ALLERGY. Discharge patient home on Ceftin Status: Acute (4) Hematuria Narrative/Plan: No further episodes of hematuria could be secondary to infection. He will need follow-up with urology as an outpatient. Status: Acute (5) Atypical chest pain Narrative/Plan: No further chest pain here Status: Acute (6) Dyslipidemia Narrative/Plan: Continue Lipitor Status: Chronic (7) Hypothyroidism Narrative/Plan: Continue Synthroid Status: Chronic Plan: We'll discharge patient home today. On Ceftin. Will need follow-up with urology and nephrology with primary care physician.
[2017-02-11 12:05] LABS: Glucose,Whole Blood 547 mg/dL (75-99)
[2017-02-11] MEDS: B COMPLEX-VIT C-VIT E-ZINC 1 EACH TAB PO SCH (12:13)
[2017-02-11] MEDS: CHOLECALCIFEROL 1,000 UNIT TAB PO SCH (12:13)
[2017-02-11 12:54] LABS: Glucose,Whole Blood 448 mg/dL (75-99)
--- NOTE | 2017-02-11 13:49 | PN ---
PROGRESS NOTE DATE OF SERVICE: 02/11/2017 REASON FOR FOLLOW UP: Urinary tract infection. INTERVAL HISTORY: The patient is afebrile. She is feeling better. Breathing comfortably. Denies any chest pain, shortness of breath. No abdominal pain, no further hematuria. EXAMINATION: Blood pressure 152/69 with a pulse of 83, temperature 97.4. She is 97% on room air. General description is an elderly female up in the bed in no distress. RESPIRATORY SYSTEM: Unlabored breathing. Clear to auscultation anteriorly. HEART: S1, S2. Regular rate and rhythm. ABDOMEN: Soft, no tenderness. LABS: BUN of 23 with a creatinine 0.98. finalized with Proteus mirabilis that is sensitive to Rocephin. DIAGNOSTIC IMPRESSION AND PLAN: Patient with Proteus mirabilis urinary tract infection with overall improvement on the Rocephin. Plan to finish therapy with oral Ceftin for another 5 days. Continue supportive care. MMODL / IJN: [id number] /
[2017-02-14 19:37] LABS: Metanephrine, Free <25 pg/mL (< OR = 57); Total, Free (MN + NMN) 94 pg/mL (< OR = 205)
== END 2017-02-11 15:34 | disposition home or self-care (01) | DRG 305 ==
LOC: EC 11:27 → 3SUR 16:56 → 3OBS 02-07 07:05 → OBSVTOIN 02-08 07:55 → 5MS5E 02-08 19:28
PROVIDERS: ADMIT Internal Medicine; ATTEND Internal Medicine
DX: I16.0 Hypertensive urgency (principal); E11.65 Type 2 diabetes mellitus with hyperglycemia; N39.0 Urinary tract infection, site not specified; B96.4 Proteus (mirabilis) (morganii) as the cause of diseases classified elsewhere; B02.9 Zoster without complications; E03.9 Hypothyroidism, unspecified; E78.5 Hyperlipidemia, unspecified; I10 Essential (primary) hypertension; I45.81 Long QT syndrome; N28.89 Other specified disorders of kidney and ureter; F41.9 Anxiety disorder, unspecified; R79.1 Abnormal coagulation profile; Z79.4 Long term (current) use of insulin; Z79.82 Long term (current) use of aspirin; Z79.899 Other long term (current) drug therapy; Z80.3 Family history of malignant neoplasm of breast; Z87.891 Personal history of nicotine dependence; Z88.0 Allergy status to penicillin; Z91.19 Patient's noncompliance with other medical treatment and regimen
CPT/HCPCS: 36415; 71020; 71275; 78451; 80048; 80053; 80061; 81001; 82088; 82533; 82550; 82553; 83036; 83735; 83835; 84244; 84439; 84443; 84484; 85025; 85379; 85610; 85730; 87077; 87086; 87186; 93005; 93306; 93975; 94760; 96361; 96374; 96376; 99285

== ENCOUNTER → 2018-06-26 | Outpatient (CLI) | payer MEDICARE, BC ==
--- NOTE | 2018-06-27 09:33 | MM ---
Reason for exam: screening (asymptomatic). Last mammogram was performed 1 year and 6 months ago. History: Patient is postmenopausal. Family history of breast cancer in mother at age 60. Physical Findings: A clinical breast exam by your physician is recommended on an annual basis and results should be correlated with mammographic findings. MG 3D Screening Mammo W/Cad Bilateral CC and MLO view(s) were taken. Prior study comparison: December 31, 2016, bilateral MG 3d screening mammo w/cad. December 17, 2015, bilateral MG 3d screening mammo w/cad. The breast tissue is heterogeneously dense. This may lower the sensitivity of mammography. There is no discrete abnormality. No significant changes when compared with prior studies. ASSESSMENT: Negative, BI-RAD 1 RECOMMENDATION: Routine screening mammogram of both breasts in 1 year.
== END | disposition home or self-care (01) ==
LOC: RADMAMWWP 12:43
PROVIDERS: ATTEND Internal Medicine
DX: Z12.31 Encounter for screening mammogram for malignant neoplasm of breast (principal)
CPT/HCPCS: 77063; 77067

== ENCOUNTER → 2020-01-15 | Outpatient (CLI) | payer MEDICARE ==
--- NOTE | 2020-01-16 15:58 | BD ---
EXAMINATION TYPE: Axial Bone Density DATE OF EXAM: 01/15/2020 COMPARISON: 11/20/2001 CLINICAL HISTORY: Height: 64.7 IN Weight: 154 LBS FRAX RISK QUESTIONS: History of Fracture in Adulthood: L2 COMPRESSION FX 2019 RISK FACTORS HISTORY OF: Spine Fracture: L2 COMPRESSION FX 2019 History of Wrist Fracture: LEFT WRIST AGE 15 Active: LIMITED Postmenopausal woman: AGE 52 Take estrogen and/or progesterone medications: NOT NOW How lon YEAR Lost more than 2 inches in height since high school: 3" MEDICATIONS: Thyroid Medications: YES Which medication: Levothyroxine How Lon+ YEARS Additional Medications: VIT D, CALCIUM, LEVOTHYROXINE, DIABETIC MEDS, BLOOD PRESSURE , CHOLESTEROL ME DS, HEART MEDS, INSULIN, PAIN MEDS, EXAM MEASUREMENTS: Bone mineral densitometry was performed using the [employer] System. Bone mineral density about the R hip (g/cm2): 0.767 Bone mineral density about the L hip (g/cm2): 0.729 T Score values are as follows: -----R Neck: -1.9 -----L Neck: -2.2 -----R Total: -1.7 -----L Total: -1.6 Bone mineral density has: Decreased -13.2% since study of: 11/20/2001 Bone mineral density about the R Wrist (g/cm2): 0.514 T Score values are as follows: -----Dist. R+U: -2.2 -----Prox. R+U: -2.2 -----Radius total: -2.6 Bone mineral density BASELINE IMPRESSION: Osteopenia (T Score between -2.5 and -1). There is slightly increased risk of fracture and the patient may be considered for treatment. Re-Screen 2-5 years. NOTE: T-SCORE=SD OF THE YOUNG ADULT MEAN.
== END | disposition home or self-care (01) ==
LOC: RADBDWWP 15:59
PROVIDERS: ATTEND Physical Medicine & Rehabilitation
DX: M85.80 Other specified disorders of bone density and structure, unspecified site (principal); M43.16 Spondylolisthesis, lumbar region; M47.817 Spondylosis without myelopathy or radiculopathy, lumbosacral region; M51.17 Intervertebral disc disorders with radiculopathy, lumbosacral region; I10 Essential (primary) hypertension; E78.5 Hyperlipidemia, unspecified; Z87.891 Personal history of nicotine dependence; S32.020D Wedge compression fracture of second lumbar vertebra, subsequent encounter for fracture with routine healing
CPT/HCPCS: 77080

== ENCOUNTER → 2020-09-17 | Outpatient (CLI) | payer MEDICARE ==
--- NOTE | 2020-09-19 09:16 | MM ---
Reason for exam: screening (asymptomatic). Last mammogram was performed 2 years and 3 months ago. History: Patient is postmenopausal. Family history of breast cancer in mother at age 60. Physical Findings: A clinical breast exam by your physician is recommended on an annual basis and results should be correlated with mammographic findings. MG 3D Screening Mammo W/Cad Bilateral CC and MLO view(s) were taken. Prior study comparison: June 26, 2018, bilateral MG 3d screening mammo w/cad. December 31, 2016, bilateral MG 3d screening mammo w/cad. The breast tissue is heterogeneously dense. This may lower the sensitivity of mammography. Stable benign calcifications. There is no discrete abnormality. No significant changes when compared with prior studies. ASSESSMENT: Benign, BI-RAD 2 RECOMMENDATION: Routine screening mammogram of both breasts in 1 year.
== END | disposition home or self-care (01) ==
LOC: RADMAMWWP 13:44
PROVIDERS: ATTEND Internal Medicine
DX: Z12.31 Encounter for screening mammogram for malignant neoplasm of breast (principal); Z80.3 Family history of malignant neoplasm of breast; Z78.0 Asymptomatic menopausal state
CPT/HCPCS: 77063; 77067

== ENCOUNTER → 2020-09-26 | Outpatient (CLI) | payer MEDICARE ==
--- NOTE | 2020-09-26 11:25 | US ---
EXAMINATION TYPE: US carotid duplex BILAT DATE OF EXAM: 09/26/2020 COMPARISON: NONE CLINICAL HISTORY: H35.61 RETINAL HEMORRHAGE. EXAM MEASUREMENTS: RIGHT: Peak Systolic Velocity (PSV) cm/sec ----- Right CCA: 69.4 ----- Right ICA: 89.7 ----- Right ECA: 133.4 ICA/CCA ratio: 1.3 RIGHT: End Diastole cm/sec ----- Right CCA: 12.7 ----- Right ICA: 23.7 ----- Right ECA: 0.0 LEFT: Peak Systolic Velocity (PSV) cm/sec ----- Left CCA: 75.6 ----- Left ICA: 98.5 ----- Left ECA: 91.0 ICA/CCA ratio: 1.3 LEFT: End Diastole cm/sec ----- Left CCA: 17.5 ----- Left ICA: 28.5 ----- Left ECA: 12.1 VERTEBRALS (direction of flow): Right Vertebral: Antegrade Left Vertebral: Antegrade Rhythm: Normal Mild to moderate atherosclerotic changes without increased velocities in bilateral ICA's. IMPRESSION: No hemodynamically significant stenosis seen in either internal carotid artery . Criteria for Assigning % of Stenosis / Diameter reduction (Estimation based on the indirect measurements of the internal carotid artery velocities (ICA PSV). 1. Normal (no stenosis)=ICA PSV < 125 cm/s: ratio < 2.0: ICA EDV<40 cm/s. 2. Less than 50% stenosis=ICA PSV < 125 cm/s: ratio < 2.0: ICA EDV<40 cm/s. 3. 50 to 69% stenosis=ICA PSV of 125 to 230 cm/s: ration 2.0 ? 4.0: ICA EDV 40-100 cm/s. 4. Greater than 70% stenosis to near occlusion= ICA PSV > 230 cm/s: ratio > 4.0: ICA EDV > 100 cm/s. 5. Near occlusion= ICA PSV velocities may be low or undetectable: variable ratio and ICA EDV. 6. Total occlusion=unable to detect flow.
== END | disposition home or self-care (01) ==
LOC: RADUSWWP 10:44
PROVIDERS: ATTEND Ophthalmology
DX: H35.61 Retinal hemorrhage, right eye (principal)
CPT/HCPCS: 93880

== ENCOUNTER 2020-11-18 11:32 | Inpatient (IN) | payer MEDICARE ==
[2020-11-18] MEDS ORDERED: SODIUM CHLORIDE 0.9% 1,000 ML IV STA (11:50)
--- NOTE | 2020-11-18 11:50 | ED ---
Recheck HPI - General Chief Complaint: Recheck/Abnormal Lab/Rx Stated Complaint: abn labs Time Seen by Provider: 11/18/20 11:44 Source: patient, RN notes reviewed Mode of arrival: ambulatory Limitations: no limitations - History of Present Illness Initial Comments: Patient is a 80-year-old female that presents to the emergency department for low hemoglobin. She notes she got routine lab testing at her primary care which showed a hemoglobin of 6.3. She notes that she's also been more fatigued recently and then getting tired with activity quicker than usual. She did not appear to be in any distress or pain while sitting up in bed during exam. She denied any history of intra-abdominal bleeding blood in her stools. She denied any chest pain shortness of breath headache nausea vomiting diarrhea constipation fever fatigue chills hematochezia melena hematuria. - Related Data Home Medications Medication Instructions Recorded Confirmed Ezetimibe [Zetia] 10 mg PO DAILY 02/06/17 11/18/20 INSULIN LISPRO (HumaLOG) [humaLOG] See Protocol SQ AC-TID 02/06/17 11/18/20 Insulin Glargine [Lantus] 10 unit SQ HS 02/06/17 11/18/20 Levothyroxine Sodium [Synthroid] 75 mcg PO DAILY 11/18/20 11/18/20 Metoprolol Succinate (ER) [Toprol 50 mg PO DAILY 11/18/20 11/18/20 Xl] Naproxen 500 mg PO BID 11/18/20 11/18/20 Venlafaxine HCl ER [Effexor Xr] 37.5 mg PO BID 11/18/20 11/18/20 amLODIPine BESYLATE/BENAZEPRIL 1 cap PO DAILY 11/18/20 11/18/20 [Lotrel 5-10 MG] rOPINIRole HCL [Requip] 1 mg PO HS 11/18/20 11/18/20 Allergies Allergy/AdvReac Type Severity Reaction Status Date / Time amoxicillin Allergy Anaphylaxis Verified 11/18/20 12:34 bee venom protein (honey bee) Allergy Anaphylaxis Verified 11/18/20 12:34 Sulfa (Sulfonamide Allergy Anaphylaxis Verified 11/18/20 12:34 Antibiotics) Review of Systems ROS Statement: Those systems with pertinent positive or pertinent negative responses have been documented in the HPI. ROS Other: All systems not noted in ROS Statement are negative. Past Medical History Past Medical History: Diabetes Mellitus, Hypertension, Thyroid Disorder Additional Past Medical History / Comment(s): irregular heart beat History of Any Multi-Drug Resistant Organisms: None Reported Past Surgical History: No Surgical Hx Reported Additional Past Surgical History / Comment(s): D and C Past Anesthesia/Blood Transfusion Reactions: No Reported Reaction Past Psychological History: Anxiety Past Alcohol Use History: None Reported Past Drug Use History: None Reported - Past Family History Mother Family Medical History: Cancer Additional Family Medical History / Comment(s): Breast CA Father Family Medical History: Unable to Obtain General Exam Limitations: no limitations General appearance: alert, in no apparent distress Head exam: Present: atraumatic, normocephalic, normal inspection Eye exam: Present: normal appearance, PERRL, EOMI. Absent: scleral icterus, conjunctival injection, periorbital swelling ENT exam: Present: normal exam, mucous membranes moist Neck exam: Present: normal inspection Respiratory exam: Present: normal lung sounds bilaterally. Absent: respiratory distress, wheezes, rales, rhonchi, stridor Cardiovascular Exam: Present: regular rate, normal rhythm, normal heart sounds. Absent: systolic murmur, diastolic murmur, rubs, gallop, clicks GI/Abdominal exam: Present: soft, normal bowel sounds. Absent: distended, tenderness, guarding, rebound, rigid Rectal exam: Present: normal inspection, normal rectal tone, heme (-) stool, hemorrhoids Extremities exam: Present: normal inspection, full ROM, normal capillary refill. Absent: tenderness, pedal edema, joint swelling, calf tenderness Neurological exam: Present: alert, oriented X3 Psychiatric exam: Present: normal affect, normal mood Skin exam: Present: warm, dry, intact, normal color. Absent: rash Course Vital Signs 11/18/20 11:39 Temperature 97.9 F Pulse Rate 78 Respiratory 16 Rate Blood Pressure 153/73 O2 Sat by Pulse 100 Oximetry Medical Decision Making - Medical Decision Making 80-year-old female with low hemoglobin on routine lab testing. Repeat labs,Occult blood test, type and screen, 1 L normal saline Labs: Hemoglobin 6.5, 1 unit of red blood cells ordered. Rest of labs unremarkable. Occult blood test negative. Case discussed with Dr. Haider, patient will be admitted into the hospital. Dr. Cha was consulted and will accept the admit. - Lab Data Result diagrams: 11/18/20 12:18 11/18/20 12:18 Lab Results 11/18/20 11/18/20 11/18/20 Range/Units 12:18 12:18 12:18 WBC 6.2 (3.8-10.6) k/uL RBC 3.48 L (3.80-5.40) m/uL Hgb 6.5 L* (11.4-16.0) gm/dL Hct 22.9 L (34.0-46.0) % MCV 65.8 L (80.0-100.0) fL MCH 18.8 L (25.0-35.0) pg MCHC 28.6 L (31.0-37.0) g/dL RDW 18.3 H (11.5-15.5) % Plt Count 491 H (150-450) k/uL MPV 6.7 Neutrophils % 79 % Lymphocytes % 10 % Monocytes % 5 % Eosinophils % 4 % Basophils % 1 % Neutrophils # 4.9 (1.3-7.7) k/uL Lymphocytes # 0.6 L (1.0-4.8) k/uL Monocytes # 0.3 (0-1.0) k/uL Eosinophils # 0.2 (0-0.7) k/uL Basophils # 0.0 (0-0.2) k/uL Hypochromasia Marked Poikilocytosis Slight Anisocytosis Slight Microcytosis Marked Sodium 139 (137-145) mmol/L Potassium 4.4 (3.5-5.1) mmol/L Chloride 105 (98-107) mmol/L Carbon Dioxide 24 (22-30) mmol/L Anion Gap 10 mmol/L BUN 22 H (7-17) mg/dL Creatinine 0.94 (0.52-1.04) mg/dL Est GFR (CKD-EPI)AfAm 67 (>60 ml/min/1.73 sqM) Est GFR (CKD-EPI)NonAf 58 (>60 ml/min/1.73 sqM) Glucose 197 H (74-99) mg/dL Calcium 9.6 (8.4-10.2) mg/dL Total Bilirubin 0.5 (0.2-1.3) mg/dL AST 21 (14-36) U/L ALT 10 (4-34) U/L Alkaline Phosphatase 84 (38-126) U/L Total Protein 7.1 (6.3-8.2) g/dL Albumin 4.0 (3.5-5.0) g/dL Urine Color Urine Appearance (Clear) Urine pH (5.0-8.0) Ur Specific [place] (1.001-1.035) Urine Protein (Negative) Urine Glucose (UA) (Negative) Urine Ketones (Negative) Urine Blood (Negative) Urine Nitrite (Negative) Urine Bilirubin (Negative) Urine Urobilinogen (<2.0) mg/dL Ur Leukocyte Esterase (Negative) Urine RBC (0-5) /hpf Urine WBC (0-5) /hpf Hyaline Casts (0-2) /lpf Stool Occult Blood (Negative) Blood Type O Negative Blood Type Recheck O Neg Bld Type Recheck Status No Antibody Screen NEGATIVE Crossmatch See Detail Spec Expiration Date 11/21/2020 - 231711/18/20 11/18/20 Range/Units 12:19 12:19 WBC (3.8-10.6) k/uL RBC (3.80-5.40) m/uL Hgb (11.4-16.0) gm/dL Hct (34.0-46.0) % MCV (80.0-100.0) fL MCH (25.0-35.0) pg MCHC (31.0-37.0) g/dL RDW (11.5-15.5) % Plt Count (150-450) k/uL MPV Neutrophils % % Lymphocytes % % Monocytes % % Eosinophils % % Basophils % % Neutrophils # (1.3-7.7) k/uL Lymphocytes # (1.0-4.8) k/uL Monocytes # (0-1.0) k/uL Eosinophils # (0-0.7) k/uL Basophils # (0-0.2) k/uL Hypochromasia Poikilocytosis Anisocytosis Microcytosis Sodium (137-145) mmol/L Potassium (3.5-5.1) mmol/L Chloride (98-107) mmol/L Carbon Dioxide (22-30) mmol/L Anion Gap mmol/L BUN (7-17) mg/dL Creatinine (0.52-1.04) mg/dL Est GFR (CKD-EPI)AfAm (>60 ml/min/1.73 sqM) Est GFR (CKD-EPI)NonAf (>60 ml/min/1.73 sqM) Glucose (74-99) mg/dL Calcium (8.4-10.2) mg/dL Total Bilirubin (0.2-1.3) mg/dL AST (14-36) U/L ALT (4-34) U/L Alkaline Phosphatase (38-126) U/L Total Protein (6.3-8.2) g/dL Albumin (3.5-5.0) g/dL Urine Color Light Yellow Urine Appearance Clear (Clear) Urine pH 6.5 (5.0-8.0) Ur Specific [place] 1.010 (1.001-1.035) Urine Protein Negative (Negative) Urine Glucose (UA) Negative (Negative) Urine Ketones Negative (Negative) Urine Blood Negative (Negative) Urine Nitrite Negative (Negative) Urine Bilirubin Negative (Negative) Urine Urobilinogen <2.0 (<2.0) mg/dL Ur Leukocyte Esterase Trace H (Negative) Urine RBC <1 (0-5) /hpf Urine WBC 2 (0-5) /hpf Hyaline Casts 1 (0-2) /lpf Stool Occult Blood Negative (Negative) Blood Type Blood Type Recheck Bld Type Recheck Status Antibody Screen Crossmatch Spec Expiration Date Disposition Clinical Impression: Symptomatic anemia Disposition: ADMITTED IP TO THIS [facility] Condition: Stable Is patient prescribed a controlled substance at d/c from ED?: No Referrals: Garett Jaffe MD [Primary Care Provider] - 1-2 days Time of Disposition: 13:39
[2020-11-18 12:48] LABS: ALT 10 U/L (4-34); AST 21 U/L (14-36); African American GFR (CKD) 67 (>60 ml/min/1.73 sqM); Alkaline Phosphatase 84 U/L (38-126); Anion Gap 10 mmol/L; Blood Urea Nitrogen 22 mg/dL (7-17); Calcium 9.6 mg/dL (8.4-10.2); Carbon Dioxide 24 mmol/L (22-30); Chloride 105 mmol/L (98-107); Glucose 197 mg/dL (74-99); Non-African American GFR(CKD) 58 (>60 ml/min/1.73 sqM); Potassium 4.4 mmol/L (3.5-5.1); Sodium 139 mmol/L (137-145); Total Bilirubin 0.5 mg/dL (0.2-1.3); Total Protein 7.1 g/dL (6.3-8.2)
[2020-11-18 12:53] LABS: Anisocytosis Slight; Basophils % (A) 1 %; Eosinophils # (A) 0.2 k/uL (0-0.7); Eosinophils % (A) 4 %; HCT 22.9 % (34.0-46.0); Hypochromasia Marked; Lymphocytes # (A) 0.6 k/uL (1.0-4.8); Lymphocytes % (A) 10 %; MCH 18.8 pg (25.0-35.0); MCHC 28.6 g/dL (31.0-37.0); MCV 65.8 fL (80.0-100.0); Mean Platelet Volume 6.7; Microcytosis Marked; Monocytes # (A) 0.3 k/uL (0-1.0); Monocytes % (A) 5 %; Neutrophils # (A) 4.9 k/uL (1.3-7.7); Neutrophils % (A) 79 %; Platelet Count 491 k/uL (150-450); Poikilocytosis Slight; RBC 3.48 m/uL (3.80-5.40); RDW 18.3 % (11.5-15.5); WBC 6.2 k/uL (3.8-10.6)
[2020-11-18 12:57] LABS: HGB 6.5 gm/dL (11.4-16.0)
[2020-11-18 13:03] LABS: Appearance,Urine Clear (Clear); Bilirubin,Urine Negative (Negative); Blood,Urine Negative (Negative); Color,Urine Light Yellow; Glucose,Urine (UA) Negative (Negative); Hyaline Casts,Urine 1 /lpf (0-2); Ketones,Urine Negative (Negative); Leukocyte Esterase,Urine Trace (Negative); Nitrite,Urine Negative (Negative); PH, Urine 6.5 (5.0-8.0); Protein,Urine Negative (Negative); RBC,Urine <1 /hpf (0-5); Urobilinogen,Urine <2.0 mg/dL (<2.0); WBC,Urine 2 /hpf (0-5)
[2020-11-18] MEDS ORDERED: NALOXONE 0.4 MG/ML 1 ML VIAL IV PRN ×2 (13:38→14:54)
[2020-11-18] MEDS ORDERED: ACETAMINOPHEN TAB 325 MG TAB PO PRN (14:54)
--- NOTE | 2020-11-18 16:08 | P.HPIM ---
History of Present Illness H&P Date: 11/18/20 Chief Complaint: Anemia 80 year old woman with history of DM, HTN, hypothyroidism, mood disorder presented for anemia. Patient was seen by her primary care physician yesterday for routine lab work, and today the result of her CBC returned with a newly found anemia. Her last blood work was 6 months ago, and she does not recall being told that she had anemia of any kind. Her hemoglobin was found to be 6.3. Therefore, she was called and asked to come to the emergency room for further evaluation. Patient's symptoms included dyspnea on exertion that has been increasing over the last 6 months, but otherwise denies: Hematuria, hematochezia, melena, GERD, hemoptysis, heavy menses, vaginal bleeding, new rashes, picca symptoms, changes in diet. She also denies fevers, chills, nausea, vomiting, chest pain, dyspnea, cough, palpitations, sick, presyncope, abdominal pain, consultation, diarrhea, dysuria, dyschezia, numbness/weakness. In the emergency room, her hemoglobin was confirmed to be 6.5, with MCV of 65.8, platelets are 491, white blood cell count was 6.2. BUNs was slightly elevated at 22, glucose elevated at 197, otherwise no major abnormalities. No imaging to review. Review of Systems All Systems reviewed and pertinent positives and negatives noted in HPI, all other symptoms are negative Past Medical History Past Medical History: Diabetes Mellitus, Hypertension, Thyroid Disorder Additional Past Medical History / Comment(s): irregular heart beat History of Any Multi-Drug Resistant Organisms: None Reported Past Surgical History: No Surgical Hx Reported Additional Past Surgical History / Comment(s): D and C Past Anesthesia/Blood Transfusion Reactions: No Reported Reaction Past Psychological History: Anxiety Past Alcohol Use History: None Reported Past Drug Use History: None Reported - Past Family History Mother Family Medical History: Cancer Additional Family Medical History / Comment(s): Breast CA Father Family Medical History: Unable to Obtain Medications and Allergies Home Medications Medication Instructions Recorded Confirmed Type Ezetimibe [Zetia] 10 mg PO DAILY 02/06/17 11/18/20 History INSULIN LISPRO (HumaLOG) [humaLOG] See Protocol SQ AC-TID 02/06/17 11/18/20 History Insulin Glargine [Lantus] 10 unit SQ HS 02/06/17 11/18/20 History Levothyroxine Sodium [Synthroid] 75 mcg PO DAILY 11/18/20 11/18/20 History Metoprolol Succinate (ER) [Toprol 50 mg PO DAILY 11/18/20 11/18/20 History Xl] Naproxen 500 mg PO BID 11/18/20 11/18/20 History Venlafaxine HCl ER [Effexor Xr] 37.5 mg PO BID 11/18/20 11/18/20 History amLODIPine BESYLATE/BENAZEPRIL 1 cap PO DAILY 11/18/20 11/18/20 History [Lotrel 5-10 MG] rOPINIRole HCL [Requip] 1 mg PO HS 11/18/20 11/18/20 History Allergies Allergy/AdvReac Type Severity Reaction Status Date / Time amoxicillin Allergy Anaphylaxis Verified 11/18/20 12:34 bee venom protein (honey bee) Allergy Anaphylaxis Verified 11/18/20 12:34 Sulfa (Sulfonamide Allergy Anaphylaxis Verified 11/18/20 12:34 Antibiotics) Physical Exam Osteopathic Statement: *. No significant issues noted on an osteopathic structural exam other than those noted in the History and Physical/Consult. Vitals: Vital Signs Temp Pulse Resp BP Pulse Ox 11/18/20 14:30 97.9 F 78 18 169/89 98 11/18/20 14:00 97.9 F 72 18 167/76 98 11/18/20 13:50 97.4 F L 89 18 159/75 98 11/18/20 11:39 97.9 F 78 16 153/73 100 Intake and Output 11/18/20 11/18/20 11/18/20 06:59 14:59 22:59 Intake Total 0 Balance 0 Intake: Blood Product 0 Rc As-1 Unit 0 [id number] Other: Weight 68.039 kg Gen: awake, alert HEENT: normocephalic, atraumatic, good hearing acuity, moist mucous membranes Resp: good air exchange, breathing comfortably with no accessory muscle use, clear to auscultation bilaterally without wheezes or crackles CVS: good distal perfusion x 4, systolic flow murmur, regular rate and rhythm GI: soft, NTTP, ND, no palpable hepatosplenomegaly. : no SPT, no CVAT, murguia catheter not present MSK: no pitting edema, no clubbing, no jaundice, no scleral icterus, pallor in the conjunctiva, fingertips, gums; no petechial rashes, ecchymosis Neuro: non-focal, moving all extremities Psych: cooperative, euthymic mood Results CBC & Chem 7: 11/18/20 12:18 11/18/20 12:18 Labs: Abnormal Lab Results - Last 24 Hours (Table) 11/18/20 11/18/20 11/18/20 Range/Units 12:18 12:18 12:18 RBC 3.48 L (3.80-5.40) m/uL Hgb 6.5 L* (11.4-16.0) gm/dL Hct 22.9 L (34.0-46.0) % MCV 65.8 L (80.0-100.0) fL MCH 18.8 L (25.0-35.0) pg MCHC 28.6 L (31.0-37.0) g/dL RDW 18.3 H (11.5-15.5) % Plt Count 491 H (150-450) k/uL Lymphocytes # 0.6 L (1.0-4.8) k/uL BUN 22 H (7-17) mg/dL Glucose 197 H (74-99) mg/dL Ur Leukocyte Esterase (Negative) Crossmatch See Detail 11/18/20 Range/Units 12:19 RBC (3.80-5.40) m/uL Hgb (11.4-16.0) gm/dL Hct (34.0-46.0) % MCV (80.0-100.0) fL MCH (25.0-35.0) pg MCHC (31.0-37.0) g/dL RDW (11.5-15.5) % Plt Count (150-450) k/uL Lymphocytes # (1.0-4.8) k/uL BUN (7-17) mg/dL Glucose (74-99) mg/dL Ur Leukocyte Esterase Trace H (Negative) Crossmatch Assessment and Plan Assessment: Anemia -Likely iron deficiency anemia given low MCV -may be beneficial to review prior lab work done 6 months ago in [facility]yah Melgoza's Office. -Admit to observation -Transfuse 1 unit packed red blood cells -Active type/screen -LDH, ferritin, iron panel, B12, folate, reticulocyte count, haptoglobin = pending; lab work added to her admission labs, prior to transfusion -If this does not identify an etiology, consider hematology consult for bone marrow biopsy and peripheral smear -Oral iron daily started -FOBT was negative for blood in the stool, regardless will require an outpatient colonoscopy Hypertension Type 2 diabetes Hypothyroidism -Home medications were reviewed and reconciled -Continue 10 units of Lantus, lispro before meals 3 times a day sliding scale insulin -Continue amlodipine, metoprolol -Continue ropinirole, venlafaxine -Continue levothyroxine Patient is a full code DVT PPx contraindicated due to anemia
[2020-11-18 16:11] LABS: Reticulocyte % 1.9 % (0.5-2.0)
[2020-11-18 16:17] LABS: Bilirubin,Unconjugated 0.4 mg/dL (0.0-1.1); LDH 490 U/L (313-618)
[2020-11-18 17:19] LABS: Glucose,Whole Blood 183 mg/dL (75-99)
[2020-11-18] MEDS: INSULIN ASPART (NovoLOG) 100 UNIT/ML VIAL SQ SCH (17:26)
[2020-11-18] MEDS: SODIUM CHLORIDE 0.9% 1,000 ML IV SCH (17:45)
[2020-11-18 20:22] VITALS: RESP 16
[2020-11-18 20:46] LABS: Glucose,Whole Blood 210 mg/dL (75-99)
[2020-11-18] MEDS: INSULIN DETEMIR (LEVEMIR) 100 UNIT/ML SYR SQ SCH (22:11)
[2020-11-18] MEDS: VENLAFAXINE HCL ER 37.5 MG CAP PO SCH (22:12)
[2020-11-19 03:49] LABS: % Iron Saturation 17.81 (12.00-45.00)
[2020-11-19 04:05] LABS: Ferritin 5.3 ng/mL (10.0-291.0); Folate, Serum 23.9 ng/mL
[2020-11-19] MEDS: LEVOTHYROXINE 75 MCG TAB PO SCH (06:00)
[2020-11-19] MEDS: SODIUM CHLORIDE 0.9% 1,000 ML IV SCH ×3 (06:11→21:41)
[2020-11-19 06:25] LABS: Anisocytosis Slight; Basophils % (A) 1 %; Eosinophils # (A) 0.3 k/uL (0-0.7); Eosinophils % (A) 6 %; HCT 27.4 % (34.0-46.0); HGB 7.9 gm/dL (11.4-16.0); Hypochromasia Marked; Lymphocytes % (A) 24 %; MCH 20.1 pg (25.0-35.0); MCHC 28.8 g/dL (31.0-37.0); MCV 69.5 fL (80.0-100.0); Mean Platelet Volume 6.6; Microcytosis Marked; Monocytes # (A) 0.4 k/uL (0-1.0); Monocytes % (A) 10 %; Neutrophils # (A) 2.5 k/uL (1.3-7.7); Neutrophils % (A) 57 %; Platelet Count 446 k/uL (150-450); Poikilocytosis Marked; RBC 3.94 m/uL (3.80-5.40); WBC 4.4 k/uL (3.8-10.6)
[2020-11-19 07:13] LABS: Glucose,Whole Blood 131 mg/dL (75-99)
[2020-11-19] MEDS: INSULIN ASPART (NovoLOG) 100 UNIT/ML VIAL SQ SCH ×3 (07:18→18:00)
[2020-11-19] MEDS: VENLAFAXINE HCL ER 37.5 MG CAP PO SCH ×2 (07:54→21:41)
[2020-11-19] MEDS: EZETIMIBE 10 MG TAB PO SCH (07:54)
[2020-11-19] MEDS: lisinopriL 10 MG TAB PO SCH (07:54)
[2020-11-19] MEDS: amLODIPine 5 MG TAB PO SCH (07:54)
[2020-11-19 10:59] LABS: Anion Gap 8.3 mmol/L (4.00-12.00); BUN/Creat Ratio 16.67 Ratio (12.00-20.00); Calcium 8.7 mg/dL (8.7-10.3); Carbon Dioxide 23.7 mmol/L (21.6-31.8); Magnesium 1.8 mg/dL (1.5-2.4); Non-African American GFR(CKD) 61.2 (60.0-200.0); Potassium 4.4 mmol/L (3.5-5.5)
[2020-11-19 11:22] LABS: Glucose,Whole Blood 221 mg/dL (75-99)
[2020-11-19] MEDS: FERROUS SULFATE 325 MG TAB PO SCH (12:53)
[2020-11-19] MEDS ORDERED: bisacodyL 5 MG TABLET.DR PO STA (13:28)
[2020-11-19] MEDS: SODIUM FERRIC GLUCONAT-SUCROSE 125 MG in SODIUM CHLORIDE 0.9% 100 ML IVPB SCH (15:45)
[2020-11-19] MEDS ORDERED: PEG 3350-NA SULF,BICARB,CL/KCL 4,000 ML BOTTLE PO ONE (16:00)
[2020-11-19] MEDS ORDERED: LIDOCAINE 1% (10MG/ML) FOR IV START INTRADERMA PRN (16:18)
--- NOTE | 2020-11-19 16:19 | P.CONS ---
History of Present Illness - Reason for Consult Consult date: 11/19/20 Symptomatic anemia Requesting physician: Ash Cha - Chief Complaint Low hemoglobin - History of Present Illness This a pleasant 80-year-old white female who presented to the emergency department by advisement of her PCP for a low hemoglobin noted on outpatient blo od work. The patient has a past medical history of diabetes mellitus, hypertension, hypothyroidism, and chronic low back pain due to a recent fracture. The patient states that she had been feeling tired and wiped out recently. States that she would walk short distances and needs to rest. She had seen her PCP and they had ordered blood work, she was called and told to go to the emergency room for a low hemoglobin. It was noted her outpatient hemoglobin to be 6.3. She denies any signs or symptoms of GI bleed, denies any dark stool, blood in her stool, or rectal bleeding. She denies any abdominal pain, nausea, or vomiting. States her bowel movements are normal. She denies any blood thinners, she does take a low dose 81 mg aspirin daily, she does have a previous history of NSAID use. States she was taking Motrin for some time for back pain. She recently took 4 Motrin about a week ago, otherwise she uses Tylenol PM. She denies any previous history of peptic ulcer disease, GERD, GI bleed or previous EGD. States she had a colonoscopy approximately 10 years ago which she believes was normal. On presentation to the emergency department she was noted to have a hemoglobin of 6.5, she was transfused with 1 unit of PRBC transfusion. Today her WBC was 4.4, hemoglobin 7.9, hematocrit 27.4, platelet count 446,000, total bilirubin 0.5, alkaline phosphatase 84, AST 21, ALT 10. Ir on studies were completed, iron 70, TIBC 393, saturation 17.81, ferritin 5.3. Review of Systems REVIEW OF SYSTEMS: CARDIOPULMONARY: No chest pain or shortness of breath. Gastrointestinal: No abdominal pain. No nausea or vomiting. No hematemesis, coffee-ground emesis. No rectal bleeding, or melena. GENITOURINARY: No dysuria or hematuria. MUSCULOSKELETAL: Reports normal range of motion., Joint pain. SKIN: No rashes. No jaundice. ENDOCRINE: No chills, fevers. No excessive weight gain or loss. No polydipsia or polyuria. PSYCHIATRIC: Unremarkable. NEUROLOGY: No change in mental status. Denies dizziness, headache. ENT: Vision unremarkable. CONSTITUTIONAL: No recent weight loss. No fever, chills, night sweats. Feeling tired and weak. Past Medical History Past Medical History: Diabetes Mellitus, Hypertension, Thyroid Disorder Additional Past Medical History / Comment(s): irregular heart beat History of Any Multi-Drug Resistant Organisms: None Reported Past Surgical History: No Surgical Hx Reported Additional Past Surgical History / Comment(s): D and C Past Anesthesia/Blood Transfusion Reactions: No Reported Reaction Past Psychological History: Anxiety Past Alcohol Use History: None Reported Past Drug Use History: None Reported - Past Family History Mother Family Medical History: Cancer Additional Family Medical History / Comment(s): Breast CA Father Family Medical History: Unable to Obtain Medications and Allergies Home Medications Medication Instructions Recorded Confirmed Type Ezetimibe [Zetia] 10 mg PO DAILY 02/06/17 11/18/20 History INSULIN LISPRO (HumaLOG) [humaLOG] See Protocol SQ AC-TID 02/06/17 11/18/20 History Insulin Glargine [Lantus] 10 unit SQ HS 02/06/17 11/18/20 History Levothyroxine Sodium [Synthroid] 75 mcg PO DAILY 11/18/20 11/18/20 History Metoprolol Succinate (ER) [Toprol 50 mg PO DAILY 11/18/20 11/18/20 History Xl] Naproxen 500 mg PO BID 11/18/20 11/18/20 History Venlafaxine HCl ER [Effexor Xr] 37.5 mg PO BID 11/18/20 11/18/20 History amLODIPine BESYLATE/BENAZEPRIL 1 cap PO DAILY 11/18/20 11/18/20 History [Lotrel 5-10 MG] rOPINIRole HCL [Requip] 1 mg PO HS 11/18/20 11/18/20 History Allergies Allergy/AdvReac Type Severity Reaction Status Date / Time amoxicillin Allergy Anaphylaxis Verified 11/18/20 12:34 bee venom protein (honey bee) Allergy Anaphylaxis Verified 11/18/20 12:34 Sulfa (Sulfonamide Allergy Anaphylaxis Verified 11/18/20 12:34 Antibiotics) Physical Exam Vitals: Vital Signs Temp Pulse Pulse Resp BP BP Pulse Ox 11/19/20 11:50 98.1 F 77 16 167/73 94 L 11/19/20 05:00 98 F 75 16 154/72 96 11/18/20 20:20 98.0 F 73 16 157/72 97 11/18/20 18:00 98.2 F 77 20 168/78 99 11/18/20 16:45 98.4 F 72 18 168/72 98 11/18/20 14:30 97.9 F 78 18 169/89 98 11/18/20 14:00 97.9 F 72 18 167/76 98 11/18/20 13:50 97.4 F L 89 18 159/75 98 Intake and Output 11/18/20 11/19/20 11/19/20 22:59 06:59 14:59 Intake Total 310 Balance 310 Intake: Blood Product 310 Rc As-1 Unit 310 [id number] Other: Voiding Method Toilet General appearance: The patient is alert, oriented, appears in no acute dist ress. HET: Head is normocephalic and atraumatic. Conjunctiva pink. Sclera anicteric. Neck: Supple without lymphadenopathy. Trachea midline. Heart: S1 S2. Regular rate and rhythm. Lungs: Clear to auscultation. Abdomen: Soft, nontender, nondistended with bowel sounds. No guarding or rigidity. Skin: No rashes. No jaundice. Extremities: Normal skin color and turgor. No pedal edema. Neurological: No focal deficits. Alert and oriented 3. Results CBC & Chem 7: 11/19/20 05:24 11/19/20 05:24 Labs: Abnormal Lab Results - Last 24 Hours (Table) 11/18/20 11/18/20 11/18/20 Range/Units 12:18 12:18 16:56 Hgb (11.4-16.0) gm/dL Hct (34.0-46.0) % MCV (80.0-100.0) fL MCH (25.0-35.0) pg MCHC (31.0-37.0) g/dL RDW (11.5-15.5) % BUN 22 H (7-17) mg/dL Glucose 197 H (74-99) mg/dL POC Glucose (mg/dL) (75-99) mg/dL Ferritin 5.3 L (10.0-291.0) ng/mL Vitamin B12 1025.0 H (200.0-944.0) pg/mL Crossmatch See Detail 11/18/20 11/18/20 11/19/20 Range/Units 17:18 20:45 05:24 Hgb 7.9 L (11.4-16.0) gm/dL Hct 27.4 L (34.0-46.0) % MCV 69.5 L (80.0-100.0) fL MCH 20.1 L (25.0-35.0) pg MCHC 28.8 L (31.0-37.0) g/dL RDW 19.0 H (11.5-15.5) % BUN (7-17) mg/dL Glucose (74-99) mg/dL POC Glucose (mg/dL) 183 H 210 H (75-99) mg/dL Ferritin (10.0-291.0) ng/mL Vitamin B12 (200.0-944.0) pg/mL Crossmatch 11/19/20 11/19/20 11/19/20 Range/Units 05:24 07:11 11:20 Hgb (11.4-16.0) gm/dL Hct (34.0-46.0) % MCV (80.0-100.0) fL MCH (25.0-35.0) pg MCHC (31.0-37.0) g/dL RDW (11.5-15.5) % BUN (7-17) mg/dL Glucose 132 H (74-99) mg/dL POC Glucose (mg/dL) 131 H 221 H (75-99) mg/dL Ferritin (10.0-291.0) ng/mL Vitamin B12 (200.0-944.0) pg/mL Crossmatch Assessment and Plan (1) Microcytic anemia Narrative/Plan: 72-year-old female who was told to report to the emergency department for low hemoglobin by her PCP. Patient had been recently feeling weak and tired and had blood work done, outpatient labs showed hemoglobin of 6.3 and patient was told to come to the emergency department. On presentation she had a hemoglobin of 6.5 and was transfused 1 unit of PRBC, with a repeat hemoglobin of 7.9 today. The patient denies any signs or symptoms of GI bleed. No previous history of peptic ulcer disease, GERD, or EGD. Patient has been using NSAIDs for the last year for chronic low back pain. She denies any blood thinners, she also takes 81 mg aspirin daily. She denies any previous history of anemia or blood transfusions. Last colonoscopy was approximately 10 years ago which she states was normal. Her blood work is consistent with iron deficiency anemia with gastrointestinal source as a possible etiology. Patient will be scheduled for EGD and colonoscopy tomorrow. Current Visit: Yes Status: Acute Code(s): D50.9 - IRON DEFICIENCY ANEMIA, UNSPECIFIED SNOMED Code(s): 685029550 (2) Symptomatic anemia Current Visit: Yes Status: Acute Code(s): D64.9 - ANEMIA, UNSPECIFIED SNOMED Code(s): 347821960 (3) Essential hypertension Current Visit: No Status: Acute Code(s): I10 - ESSENTIAL (PRIMARY) HYPERTENSION SNOMED Code(s): 80529885 (4) Type 2 diabetes mellitus Current Visit: No Status: Acute Code(s): E11.9 - TYPE 2 DIABETES MELLITUS WITHOUT COMPLICATIONS SNOMED Code(s): 12297127 Plan: 1. Clear liquid diet, nothing by mouth after midnight 2. Dulcolax as ordered 3. Bowel prep this evening 4. Repeat daily CBC, transfuse for hemoglobin less than 7 5. Avoid NSAIDs 6. Protonix 40 mg twice a day 7. Patient is scheduled for EGD and colonoscopy tomorrow. The procedure was discussed with the patient in detail including risks and benefits, patient is willing to proceed. Thank you for this consultation, we will continue to follow. Dr. Wilbert Omalley I agree with the dictator's note, documented as a scribe by Lily Fournier.
[2020-11-19] MEDS ORDERED: LACTATED RINGERS 1,000 ML IV SCH (16:30)
[2020-11-19 17:07] LABS: Glucose,Whole Blood 237 mg/dL (75-99)
--- NOTE | 2020-11-19 17:56 | P.PN ---
<Kayden Bell - Last Filed: 11/19/20 17:50> Subjective Progress Note Date: 11/19/20 Hospital course: Patient is a 72-year-old female with a past medical history of hypertension, h ypothyroidism, and insulin-dependent diabetes mellitus type 2. Patient reportedly went to her PCPs after experiencing some increasing weakness and fatigue and was found to have significantly low hemoglobin and instructed to come to the hospital. Patient presented to the hospital on 11/18/20 and was found to have new onset microcytic microchromic anemia with hemoglobin 6.5, hematocrit 22.9, MCV 65.8, MCH 18.8, MCHC 28.6, and RDW of 18.3. Patient admitted under our services with consultation to hematology and gastroenterology. Fecal occult negative. Ferritin found to be significantly low at 5.3. Patient received 1 unit of packed RBCs, currently hemoglobin improved at 7.9. Physical exam: General: non toxic, no distress, appears at stated age Derm: warm, dry Head: atraumatic, normocephalic, symmetric Eyes: EOMI, no lid lag, anicteric sclera Mouth: no lip lesion, mucus membranes moist Cardiovascular: S1S2 reg, no murmur, positive posterior tibial pulse bilateral, Lungs: CTA bilateral, no rhonchi, no rales , no accessory muscle use Abdominal: soft, nontender to palpation, no guarding, no appreciable organomegaly Ext: no gross muscle atrophy, no edema, no contractures Neuro: CN II-XI grossly intact, no focal neuro deficits Psych: Alert, oriented, appropriate affect Plan of care: Iron deficiency anemia -Ferritin 5.3 -Hemoglobin initially 6.5, patient received 1 unit packed RBCs and currently hemoglobin improved and stabilized at 7.9. -Consult placed to hematology, appreciate recommendations -Continue oral iron supplementation pending further recommendations from hematology. Hypertension -Monitor vital signs and continue daily medication management Hypothyroidism -Continue daily medication regimen with Synthroid 75 g each morning. Type 2 insulin-dependent diabetes mellitus -Glycemic protocol with NovoLog sliding scale and Levemir 10 units nightly. -Heart healthy carb consistent diet. CODE STATUS: Full code DVT prophylaxis: SCDs Discussed with: Patient and RN Anticipated discharge date: Clinical course to determine, possibly tomorrow Anticipated discharge place: Home A total of 45 minutes was spent on the care of this complex patient more than 50% of the time was spent in counseling and care coordination. Objective - Vital Signs Vital signs: Vital Signs Temp 98.1 F 11/19/20 11:50 Pulse 77 11/19/20 11:50 Resp 16 11/19/20 11:50 BP 167/73 11/19/20 11:50 Pulse Ox 94 L 11/19/20 11:50 Intake & Output 11/18/20 11/19/20 11/19/20 18:59 06:59 18:59 Intake Total 310 Balance 310 Weight 68.039 kg Intake: Blood Product 310 Rc As-1 Unit 310 [id number] Other: Voiding Method Toilet - Labs CBC & Chem 7: 11/19/20 05:24 11/19/20 05:24 Labs: Abnormal Lab Results - Last 24 Hours (Table) 11/18/20 11/18/20 11/18/20 Range/Units 12:18 12:18 12:18 RBC 3.48 L (3.80-5.40) m/uL Hgb 6.5 L* (11.4-16.0) gm/dL Hct 22.9 L (34.0-46.0) % MCV 65.8 L (80.0-100.0) fL MCH 18.8 L (25.0-35.0) pg MCHC 28.6 L (31.0-37.0) g/dL RDW 18.3 H (11.5-15.5) % Plt Count 491 H (150-450) k/uL Lymphocytes # 0.6 L (1.0-4.8) k/uL BUN 22 H (7-17) mg/dL Glucose 197 H (74-99) mg/dL POC Glucose (mg/dL) (75-99) mg/dL Ferritin (10.0-291.0) ng/mL Vitamin B12 (200.0-944.0) pg/mL Ur Leukocyte Esterase (Negative) Crossmatch See Detail 11/18/20 11/18/20 11/18/20 Range/Units 12:19 16:56 17:18 RBC (3.80-5.40) m/uL Hgb (11.4-16.0) gm/dL Hct (34.0-46.0) % MCV (80.0-100.0) fL MCH (25.0-35.0) pg MCHC (31.0-37.0) g/dL RDW (11.5-15.5) % Plt Count (150-450) k/uL Lymphocytes # (1.0-4.8) k/uL BUN (7-17) mg/dL Glucose (74-99) mg/dL POC Glucose (mg/dL) 183 H (75-99) mg/dL Ferritin 5.3 L (10.0-291.0) ng/mL Vitamin B12 1025.0 H (200.0-944.0) pg/mL Ur Leukocyte Esterase Trace H (Negative) Crossmatch 11/18/20 11/19/20 11/19/20 Range/Units 20:45 05:24 05:24 RBC (3.80-5.40) m/uL Hgb 7.9 L (11.4-16.0) gm/dL Hct 27.4 L (34.0-46.0) % MCV 69.5 L (80.0-100.0) fL MCH 20.1 L (25.0-35.0) pg MCHC 28.8 L (31.0-37.0) g/dL RDW 19.0 H (11.5-15.5) % Plt Count (150-450) k/uL Lymphocytes # (1.0-4.8) k/uL BUN (7-17) mg/dL Glucose 132 H (74-99) mg/dL POC Glucose (mg/dL) 210 H (75-99) mg/dL Ferritin (10.0-291.0) ng/mL Vitamin B12 (200.0-944.0) pg/mL Ur Leukocyte Esterase (Negative) Crossmatch 11/19/20 11/19/20 Range/Units 07:11 11:20 RBC (3.80-5.40) m/uL Hgb (11.4-16.0) gm/dL Hct (34.0-46.0) % MCV (80.0-100.0) fL MCH (25.0-35.0) pg MCHC (31.0-37.0) g/dL RDW (11.5-15.5) % Plt Count (150-450) k/uL Lymphocytes # (1.0-4.8) k/uL BUN (7-17) mg/dL Glucose (74-99) mg/dL POC Glucose (mg/dL) 131 H 221 H (75-99) mg/dL Ferritin (10.0-291.0) ng/mL Vitamin B12 (200.0-944.0) pg/mL Ur Leukocyte Esterase (Negative) Crossmatch <Britt Cooper John - Last Filed: 11/19/20 19:54> Objective - Vital Signs Vital signs: Vital Signs Temp 98.1 F 11/19/20 11:50 Pulse 77 11/19/20 11:50 Resp 16 11/19/20 11:50 BP 167/73 11/19/20 11:50 Pulse Ox 94 L 11/19/20 11:50 Intake & Output 11/19/20 11/19/20 11/20/20 06:59 18:59 06:59 Intake Total 925 Balance 925 Intake: Intake, IV Titration 925 Amount Sodium Chloride 0.9% 1, 825 000 ml @ 75 mls/hr IV . [id number] [facility] Rx#:[id number] Sodium Ferric Gluconat- 100 Sucrose 125 mg In Sodium Chloride 0.9% 100 ml @ 100 mls/hr IVPB DAILY [facility] Rx#:[id number] Other: Voiding Method Toilet - Labs CBC & Chem 7: 11/19/20 05:24 11/19/20 05:24 Labs: Abnormal Lab Results - Last 24 Hours (Table) 11/18/20 11/18/20 11/19/20 Range/Units 16:56 20:45 05:24 Hgb 7.9 L (11.4-16.0) gm/dL Hct 27.4 L (34.0-46.0) % MCV 69.5 L (80.0-100.0) fL MCH 20.1 L (25.0-35.0) pg MCHC 28.8 L (31.0-37.0) g/dL RDW 19.0 H (11.5-15.5) % Glucose (70-110) mg/dL POC Glucose (mg/dL) 210 H (75-99) mg/dL Ferritin 5.3 L (10.0-291.0) ng/mL Vitamin B12 1025.0 H (200.0-944.0) pg/mL 11/19/20 11/19/20 11/19/20 Range/Units 05:24 07:11 11:20 Hgb (11.4-16.0) gm/dL Hct (34.0-46.0) % MCV (80.0-100.0) fL MCH (25.0-35.0) pg MCHC (31.0-37.0) g/dL RDW (11.5-15.5) % Glucose 132 H (70-110) mg/dL POC Glucose (mg/dL) 131 H 221 H (75-99) mg/dL Ferritin (10.0-291.0) ng/mL Vitamin B12 (200.0-944.0) pg/mL 11/19/20 Range/Units 17:06 Hgb (11.4-16.0) gm/dL Hct (34.0-46.0) % MCV (80.0-100.0) fL MCH (25.0-35.0) pg MCHC (31.0-37.0) g/dL RDW (11.5-15.5) % Glucose (70-110) mg/dL POC Glucose (mg/dL) 237 H (75-99) mg/dL Ferritin (10.0-291.0) ng/mL Vitamin B12 (200.0-944.0) pg/mL Assessment and Plan Assessment: Patient seen and examined independently. Patient was also seen by Kayden Bell NP and case was discussed. I am in agreement with subjective, physical exam, assessment and plan as written above and amended below. She denies any melena, hematemesis. No dysfunctional uterine bleeding. General: non toxic, no distress, appears at stated age Derm: warm, dry Head: atraumatic, normocephalic, symmetric Eyes: EOMI, no lid lag, anicteric sclera Mouth: no lip lesion, mucus membranes moist
[2020-11-19 19:57] LABS: Glucose,Whole Blood 175 mg/dL (75-99)
[2020-11-19] MEDS: PANTOPRAZOLE 40 MG/10 ML VIAL IVP SCH (21:41)
[2020-11-19] MEDS: INSULIN DETEMIR (LEVEMIR) 100 UNIT/ML SYR SQ SCH (21:42)
[2020-11-19] MEDS ORDERED: METOPROLOL SUCCINATE (ER) 50 MG TAB.ER.24H PO SCH (22:30)
[2020-11-20 06:39] LABS: Anisocytosis Slight; Basophils % (A) 1 %; Eosinophils # (A) 0.2 k/uL (0-0.7); Eosinophils % (A) 3 %; HCT 26.2 % (34.0-46.0); HGB 7.9 gm/dL (11.4-16.0); Hypochromasia Marked; Lymphocytes # (A) 0.9 k/uL (1.0-4.8); Lymphocytes % (A) 18 %; MCHC 30.3 g/dL (31.0-37.0); MCV 69.5 fL (80.0-100.0); Mean Platelet Volume 6.2; Microcytosis Marked; Monocytes # (A) 0.4 k/uL (0-1.0); Monocytes % (A) 9 %; Neutrophils # (A) 3.3 k/uL (1.3-7.7); Neutrophils % (A) 66 %; Platelet Count 429 k/uL (150-450); Poikilocytosis Marked; RBC 3.77 m/uL (3.80-5.40); RDW 19.9 % (11.5-15.5)
[2020-11-20 07:33] LABS: Glucose,Whole Blood 88 mg/dL (75-99)
[2020-11-20] MEDS: EZETIMIBE 10 MG TAB PO SCH (08:54)
[2020-11-20] MEDS: INSULIN ASPART (NovoLOG) 100 UNIT/ML VIAL SQ SCH ×2 (08:54→13:48)
[2020-11-20] MEDS: LEVOTHYROXINE 75 MCG TAB PO SCH (08:54)
[2020-11-20] MEDS: VENLAFAXINE HCL ER 37.5 MG CAP PO SCH (08:55)
[2020-11-20] MEDS: SODIUM FERRIC GLUCONAT-SUCROSE 125 MG in SODIUM CHLORIDE 0.9% 100 ML IVPB SCH (08:58)
[2020-11-20] MEDS: PANTOPRAZOLE 40 MG/10 ML VIAL IVP SCH (08:58)
--- NOTE | 2020-11-20 11:41 | P.PN ---
<Kayden Bell - Last Filed: 11/20/20 12:52> Subjective Progress Note Date: 11/20/20 Hospital course: Patient is a 72-year-old female with a past medical history of hypertension, h ypothyroidism, and insulin-dependent diabetes mellitus type 2. Patient reportedly went to her PCPs after experiencing some increasing weakness and fatigue and was found to have significantly low hemoglobin and instructed to come to the hospital. Patient presented to the hospital on 11/18/20 and was found to have new onset microcytic microchromic anemia with hemoglobin 6.5, hematocrit 22.9, MCV 65.8, MCH 18.8, MCHC 28.6, and RDW of 18.3. Patient admitted under our services with consultation to hematology and gastroenterology. Fecal occult negative. Ferritin found to be significantly low at 5.3. Patient received 1 unit of packed RBCs, currently hemoglobin improved at 7.9. Patient to receive iron transfusion and has plans for EGD and colonoscopy later today. Physical exam: Patient seen and fully evaluated at the bedside this morning. She denies having any complaints at this time including headache, lightheadedness, dizziness, changes in vision or hearing, chest pain or palpitations, shortness of breath, abdominal pain, nausea, vomiting, or experiencing any numbness/tingling/weakness in her extremities. Patient does report having a strange metallic taste in her mouth and was educated that this is a side effect of the ferritin that was infusing at this time. Patient scheduled to have EGD and colonoscopy later this afternoon. General: non toxic, no distress, appears at stated age Derm: warm, dry Head: atraumatic, normocephalic, symmetric Eyes: EOMI, no lid lag, anicteric sclera Mouth: no lip lesion, mucus membranes moist Cardiovascular: S1S2 reg, no murmur, positive posterior tibial pulse bilateral, Lungs: CTA bilateral, no rhonchi, no rales , no accessory muscle use Abdominal: soft, nontender to palpation, no guarding, no appreciable organomegaly Ext: no gross muscle atrophy, no edema, no contractures Neuro: CN II-XI grossly intact, no focal neuro deficits Psych: Alert, oriented, appropriate affect Plan of care: Iron deficiency anemia -Ferritin 5.3 -Hemoglobin initially 6.5, patient received 1 unit packed RBCs and currently hemoglobin improved and stabilized at 7.9. -Consult placed to hematology, appreciate recommendations -Continue iron supplementation pending further recommendations from hematology. Hypertension -Monitor vital signs and continue daily medication management Hypothyroidism -Continue daily medication regimen with Synthroid 75 g each morning. Type 2 insulin-dependent diabetes mellitus -Glycemic protocol with NovoLog sliding scale and Levemir 10 units nightly. -Heart healthy carb consistent diet. CODE STATUS: Full code DVT prophylaxis: SCDs Discussed with: Patient and RN Anticipated discharge date: Clinical course to determine, possibly tomorrow pending GI and hematology recommendations. Anticipated discharge place: Home A total of 45 minutes was spent on the care of this complex patient more than 50% of the time was spent in counseling and care coordination. Objective - Vital Signs Vital signs: Vital Signs Temp 98.0 F 11/20/20 04:55 Pulse 73 11/20/20 04:55 Resp 16 11/20/20 04:55 BP 167/72 11/20/20 04:55 Pulse Ox 99 11/20/20 04:55 Intake & Output 11/19/20 11/20/20 11/20/20 18:59 06:59 18:59 Intake Total 925 Balance 925 Intake: Intake, IV Titration 925 Amount Sodium Chloride 0.9% 1, 825 000 ml @ 75 mls/hr IV . [id number] [facility] Rx#:[id number] Sodium Ferric Gluconat- 100 Sucrose 125 mg In Sodium Chloride 0.9% 100 ml @ 100 mls/hr IVPB DAILY [facility] Rx#:[id number] Other: # Voids 2 1 - Labs CBC & Chem 7: 11/20/20 05:48 11/19/20 05:24 Labs: Abnormal Lab Results - Last 24 Hours (Table) 11/18/20 11/19/20 11/19/20 Range/Units 12:16 17:06 19:55 RBC (3.80-5.40) m/uL Hgb (11.4-16.0) gm/dL Hct (34.0-46.0) % MCV (80.0-100.0) fL MCH (25.0-35.0) pg MCHC (31.0-37.0) g/dL RDW (11.5-15.5) % Lymphocytes # (1.0-4.8) k/uL Haptoglobin 201.0 H (31.2-198.0) mg/dL POC Glucose (mg/dL) 237 H 175 H (75-99) mg/dL 11/20/20 Range/Units 05:48 RBC 3.77 L (3.80-5.40) m/uL Hgb 7.9 L (11.4-16.0) gm/dL Hct 26.2 L (34.0-46.0) % MCV 69.5 L (80.0-100.0) fL MCH 21.0 L (25.0-35.0) pg MCHC 30.3 L (31.0-37.0) g/dL RDW 19.9 H (11.5-15.5) % Lymphocytes # 0.9 L (1.0-4.8) k/uL Haptoglobin (31.2-198.0) mg/dL POC Glucose (mg/dL) (75-99) mg/dL <Ash Cha - Last Filed: 11/20/20 14:16> Objective - Vital Signs Vital signs: Vital Signs Temp 98.7 F 11/20/20 13:04 Pulse 68 11/20/20 13:04 Resp 16 11/20/20 13:04 BP 178/80 11/20/20 13:04 Pulse Ox 97 11/20/20 13:04 Intake & Output 11/19/20 11/20/20 11/20/20 18:59 06:59 18:59 Intake Total 925 200 Balance 925 200 Intake: IV 200 Intake, IV Titration 925 Amount Sodium Chloride 0.9% 1, 825 000 ml @ 75 mls/hr IV . [id number] [facility] Rx#:[id number] Sodium Ferric Gluconat- 100 Sucrose 125 mg In Sodium Chloride 0.9% 100 ml @ 100 mls/hr IVPB DAILY [facility] Rx#:[id number] Other: # Voids 2 1 - Labs CBC & Chem 7: 11/20/20 05:48 11/19/20 05:24 Labs: Abnormal Lab Results - Last 24 Hours (Table) 11/18/20 11/19/20 11/19/20 Range/Units 12:16 17:06 19:55 RBC (3.80-5.40) m/uL Hgb (11.4-16.0) gm/dL Hct (34.0-46.0) % MCV (80.0-100.0) fL MCH (25.0-35.0) pg MCHC (31.0-37.0) g/dL RDW (11.5-15.5) % Lymphocytes # (1.0-4.8) k/uL Haptoglobin 201.0 H (31.2-198.0) mg/dL POC Glucose (mg/dL) 237 H 175 H (75-99) mg/dL 11/20/20 Range/Units 05:48 RBC 3.77 L (3.80-5.40) m/uL Hgb 7.9 L (11.4-16.0) gm/dL Hct 26.2 L (34.0-46.0) % MCV 69.5 L (80.0-100.0) fL MCH 21.0 L (25.0-35.0) pg MCHC 30.3 L (31.0-37.0) g/dL RDW 19.9 H (11.5-15.5) % Lymphocytes # 0.9 L (1.0-4.8) k/uL Haptoglobin (31.2-198.0) mg/dL POC Glucose (mg/dL) (75-99) mg/dL Assessment and Plan Assessment: I reviewed the documentation as provided by the EUGENIO above, who is the original author of this note. I agree with the documented assessment and plan, with the following changes: none
[2020-11-20] MEDS ORDERED: LIDOCAINE 1% INJ 10MG/ML (20 ML MDV) ONE (12:11)
[2020-11-20] MEDS ORDERED: IV FLUID CONTINUATION 1,000 ML IV ONE (12:11)
[2020-11-20] MEDS ORDERED: PROPOFOL 10 MG/ML 20 ML VIAL IV ONE (12:11)
--- NOTE | 2020-11-20 12:35 | P.PCN ---
Date of Procedure: 11/20/20 Procedure(s) Performed: Brief history: Patient is a pleasant 80-year-old white female admitted hospital with severe symptomatic anemia and hemoglobin of 7 g/dL with microcytosis and iron indices consistent with iron deficiency anemia. She denies any GI symptoms. She is scheduled scheduled for an upper endoscopy as well as colonoscopy as a part of evaluation of iron deficiency anemia. Procedure performed: Esophagogastroduodenoscopy with biopsy Colonoscopy Preoperative diagnosis: Iron deficiency anemia Anesthesia: MAC Procedure: After informed consent was obtained from the patient was brought into the endoscopy unit and IV sedation was administered by anesthesia under continuous monitoring. Initially upper endoscopy was done. The Olympus GF 160 video endoscope was inserted inserted into the mouth and esophagus intubated without any difficulty and was gradually advanced into the stomach and duodenum and carefully examined. The bulb and second part of the duodenum appeared normal. Biopsies were done from the duodenum to rule out celiac disease. The scope was then withdrawn into the stomach adequately insufflated with air and upon careful examination the antrum and body, cardia and fundus appeared normal. In the pylorus there was a 3 mm polyp that was removed by cold biopsy. The scope was then withdrawn into the esophagus. The GE junction was located at 40 cm to the incisors. It appeared regular with superficial erosions consistent with LA grade B reflux esophagitis. Rest of the esophagus appeared normal. Patient tolerated the procedure well. At this time the patient continued to remain sedation. Initial digital rectal examination was normal. Olympus CF 160 video colonoscope was then inserted into the rectum and gradually advanced to the cecum without any difficulty. Careful examination was performed as the scope was gradually being withdrawn. The prep was excellent. The cecum, ascending colon, transverse colon, descending colon, sigmoid colon and rectum appeared normal. Scattered sigmoid diverticulosis seen. Retroflexion was performed in the rectum and no lesions were noted. Patient tolerated the procedure well. Impression: 1. Upper endoscopy revealed a small 3 mm polyp in the pylorus and LA grade B reflux esophagitis 2. Colonoscopy revealed scattered sigmoid diverticulosis but no evidence of colorectal neoplasia Recommendations: Findings of this examination were discussed with the patient. Await biopsy results. Since no obvious source of bleeding identified will proceed with a small bowel capsule endoscopy today.
[2020-11-20] MEDS ORDERED: SIMETHICONE 40 MG/0.6 ML DROPS 2,000 MG/30 ML BOTTLE PO ONE (13:15)
[2020-11-20 13:32] VITALS: BP 178/80; PULSE 68; TEMP 98.7
[2020-11-20] MEDS: lisinopriL 10 MG TAB PO SCH (13:40)
[2020-11-20] MEDS: amLODIPine 5 MG TAB PO SCH (13:40)
[2020-11-20] MEDS: FERROUS SULFATE 325 MG TAB PO SCH (13:41)
--- NOTE | 2020-11-20 15:20 | P.DS ---
<Kayden Bell - Last Filed: 11/20/20 15:26> Providers Expected date of discharge: 11/20/20 Hospital Course: Discharge Diagnosis: Iron deficiency anemia Hypertension Hypothyroidism Type 2 insulin-dependent diabetes mellitus Diverticulosis Hospital Course: Patient is a 72-year-old female with a past medical history of hypertension, hypothyroidism, and insulin-dependent diabetes mellitus type 2. Patient reportedly went to her PCPs after experiencing some increasing weakness and fatigue and was found to have significantly low hemoglobin and instructed to come to the hospital. Patient presented to the hospital on 11/18/20 and was found to have new onset microcytic microchromic anemia with hemoglobin 6.5, hematocrit 22.9, MCV 65.8, MCH 18.8, MCHC 28.6, and RDW of 18.3. Patient admitted under our services with consultation to hematology and gastroenterology. Fecal occult negative. Ferritin found to be significantly low at 5.3. Patient received 1 unit of packed RBCs, currently hemoglobin imp roved at 7.9. Patient completed EGD and colonoscopy earlier today, reportedly revealing upper endoscopy revealed a small 3 mm polyp in the pylorus and LA grade B reflux esophagitis and colonoscopy revealed scattered sigmoid diverticulosis but no evidence of colorectal neoplasia. A biopsy was completed and patient cleared by GI with plans for discharge home recommending patient follow-up with an outpatient for small bowel capsule study. Patient also cleared for discharge by hematology stating patient will need to follow up outpatient for long-term monitoring/management of iron deficiency anemia. Patient's condition stable at this time. Patient stable for discharge home. Please refer to progress note completed earlier today to review for physical exam findings. A total of 45 minutes of time were spent preparing this complex discharge summary. Assessment: I agree with the documentation as compiled by Kayden Bell. Patient Condition at Discharge: Stable Plan - Discharge Summary New Discharge Prescriptions: New amLODIPine [Norvasc] 5 mg PO DAILY@0900 tab Ferrous Sulfate [Iron (65 MG Elemental)] 325 mg PO W/LUNCH 30 Days #30 tab Continue Insulin Glargine [Lantus] 10 unit SQ HS INSULIN LISPRO (HumaLOG) [humaLOG] See Protocol SQ AC-TID Ezetimibe [Zetia] 10 mg PO DAILY Venlafaxine HCl ER [Effexor XR] 37.5 mg PO BID Metoprolol Succinate (ER) [Toprol XL] 50 mg PO DAILY rOPINIRole HCL [Requip] 1 mg PO HS Levothyroxine Sodium [Synthroid] 75 mcg PO DAILY amLODIPine BESYLATE/BENAZEPRIL [Lotrel 5-10 MG] 1 cap PO DAILY Discontinued Naproxen 500 mg PO BID Discharge Medication List Ezetimibe [Zetia] 10 mg PO DAILY 02/06/17 [History] INSULIN LISPRO (HumaLOG) [humaLOG] See Protocol SQ AC-TID 02/06/17 [History] Insulin Glargine [Lantus] 10 unit SQ HS 02/06/17 [History] Levothyroxine Sodium [Synthroid] 75 mcg PO DAILY 11/18/20 [History] Metoprolol Succinate (ER) [Toprol XL] 50 mg PO DAILY 11/18/20 [History] Venlafaxine HCl ER [Effexor XR] 37.5 mg PO BID 11/18/20 [History] amLODIPine BESYLATE/BENAZEPRIL [Lotrel 5-10 MG] 1 cap PO DAILY 11/18/20 [History] rOPINIRole HCL [Requip] 1 mg PO HS 11/18/20 [History] Ferrous Sulfate [Iron (65 MG Elemental)] 325 mg PO W/LUNCH 30 Days #30 tab 11/20/20 [Rx] amLODIPine [Norvasc] 5 mg PO DAILY@0900 tab 11/20/20 [Rx] Follow up Appointment(s)/Referral(s): Nikita Hdez MD [STAFF PHYSICIAN] - 1 Week (The office will contact you for follow up appt) Garett Jaffe MD [Primary Care Provider] - 12/01/20 1:30 pm Activity/Diet/Wound Care/Special Instructions: Activity: As tolerated Special Instructions: You are being discharged home at this time. It is important to follow up as recommended with hematology and gastroenterology for continued monitoring and management of your iron deficiency anemia and plans for small bowel capsule study. Hematology will contact you for follow up appt Thank you for allowing us to participate in your care, it was a pleasure having you for our patient!! Discharge Disposition: HOME SELF-CARE <Ash Cha - Last Filed: 11/21/20 09:17> Providers Date of admission: 11/18/20 13:37 Attending physician: Ash Cha MD Consults: 11/19/20 12:17 Consult Physician Routine Consulting Provider: Nikita Hdez Consult Reason/Comments: symptomatic anemia Do you want consulting provider notified?: Yes 11/19/20 12:19 Consult Physician Routine Consulting Provider: Andrea Card Consult Reason/Comments: symptomatic anemia, r/o GI bleed Do you want consulting provider notified?: Yes Primary care physician: Garett Jaffe MD
--- NOTE | 2020-11-20 16:22 | P.CONS ---
History of Present Illness - Reason for Consult Consult date: 11/20/20 iron def anemia Requesting physician: Kayden Bell - Chief Complaint abnormal labs - History of Present Illness Mrs. Teran is a very pleasant 80-year-old female patient recommended to come to the hospital by her PCP who found her to be significantly anemic on routine lab work. Her hemoglobin was 6.3. She has received 1 unit of packed red blood cells with appropriate increase in hemoglobin. We have been asked to see her for microcytic, hyperchromic, symptomatic anemia. She denies any history of anemia, never had a blood transfusion before, no reported h ematuria, hematochezia, melena, vaginal bleeding. She is not on anticoagulation, she is on antiplatelet therapy with a baby aspirin. She is positive for iron deficiency with a ferritin of 5.3, saturation of 17.81%, B12 and folate adequate. Patient's last colonoscopy was about 10 years ago, she's never had an EGD. She denies any dysphagia, unintentional or unusual weight loss, acute changes in her bowel habits. She has noted that she has been experiencing decreased endurance and stamina for the last 2 months along with increased fatigue, SOB on exertion. She has a past medical history positive for diabetes mellitus, hypertension, hypothyroidism and mood disorder. No personal history of malignancy or blood disorders Review of Systems 14 point ROS is neg except as stated in HPI Past Medical History Past Medical History: Diabetes Mellitus, Hypertension, Thyroid Disorder Additional Past Medical History / Comment(s): irregular heart beat History of Any Multi-Drug Resistant Organisms: None Reported Past Surgical History: No Surgical Hx Reported Additional Past Surgical History / Comment(s): D and C Past Anesthesia/Blood Transfusion Reactions: No Reported Reaction Past Psychological History: Anxiety Past Alcohol Use History: None Reported Past Drug Use History: None Reported - Past Family History Mother Family Medical History: Cancer Additional Family Medical History / Comment(s): Breast CA Father Family Medical History: Unable to Obtain Medications and Allergies Home Medications Medication Instructions Recorded Confirmed Type Ezetimibe [Zetia] 10 mg PO DAILY 02/06/17 11/18/20 History INSULIN LISPRO (HumaLOG) [humaLOG] See Protocol SQ AC-TID 02/06/17 11/18/20 History Insulin Glargine [Lantus] 10 unit SQ HS 02/06/17 11/18/20 History Levothyroxine Sodium [Synthroid] 75 mcg PO DAILY 11/18/20 11/18/20 History Metoprolol Succinate (ER) [Toprol 50 mg PO DAILY 11/18/20 11/18/20 History XL] Venlafaxine HCl ER [Effexor XR] 37.5 mg PO BID 11/18/20 11/18/20 History amLODIPine BESYLATE/BENAZEPRIL 1 cap PO DAILY 11/18/20 11/18/20 History [Lotrel 5-10 MG] rOPINIRole HCL [Requip] 1 mg PO HS 11/18/20 11/18/20 History Ferrous Sulfate [Iron (65 MG 325 mg PO W/LUNCH 30 Days #30 tab 11/20/20 Rx Elemental)] amLODIPine [Norvasc] 5 mg PO DAILY@0900 tab 11/20/20 Rx Allergies Allergy/AdvReac Type Severity Reaction Status Date / Time amoxicillin Allergy Anaphylaxis Verified 11/18/20 12:34 bee venom protein (honey bee) Allergy Anaphylaxis Verified 11/18/20 12:34 Sulfa (Sulfonamide Allergy Anaphylaxis Verified 11/18/20 12:34 Antibiotics) Physical Exam Vitals: Vital Signs Temp Pulse Resp BP Pulse Ox 11/20/20 13:04 98.7 F 68 16 178/80 97 11/20/20 04:55 98.0 F 73 16 167/72 99 11/19/20 21:00 98.5 F 84 16 171/72 97 Intake and Output 11/20/20 11/20/20 11/20/20 06:59 14:59 22:59 Intake Total 200 Balance 200 Intake: IV 200 Other: # Voids 2 1 - Constitutional General appearance: average body habitus, cooperative, no acute distress - EENT Eyes: anicteric sclerae, EOMI, normal appearance ENT: hearing grossly normal, normal oropharynx - Neck Neck: no lymphadenopathy - Respiratory Respiratory: bilateral: CTA - Cardiovascular Rhythm: regular Heart sounds: normal: S1, S2 Abnormal Heart Sounds: no systolic murmur, no diastolic murmur, no rub, no S3 Gallop, no S4 Gallop, no click, no other leg Peripheral Edema: bilateral: None - Gastrointestinal General gastrointestinal: no absent bowel sounds, no decreased bowel sounds, no distended, no hepatomegaly, no hyperactive bowel sounds, normal bowel sounds, no organomegaly, no rigid, no scaphoid, soft, no splenomegaly, no tenderness, no umbilical hernia, no ventral hernia - Integumentary Integumentary: normal, normal turgor - Neurologic Neurologic: CNII-XII intact - Musculoskeletal Musculoskeletal: strength equal bilaterally - Psychiatric Psychiatric: A&O x's 3, appropriate affect, intact judgment & insight Results CBC & Chem 7: 11/20/20 05:48 11/19/20 05:24 Labs: Abnormal Lab Results - Last 24 Hours (Table) 11/18/20 11/18/20 11/19/20 Range/Units 12:16 12:16 17:06 RBC (3.80-5.40) m/uL Hgb (11.4-16.0) gm/dL Hct (34.0-46.0) % MCV (80.0-100.0) fL MCH (25.0-35.0) pg MCHC (31.0-37.0) g/dL RDW (11.5-15.5) % Lymphocytes # (1.0-4.8) k/uL Haptoglobin 201.0 H (31.2-198.0) mg/dL POC Glucose (mg/dL) 237 H (75-99) mg/dL RBC Folate 1,556 H (280 - 791) ng/mL 11/19/20 11/20/20 Range/Units 19:55 05:48 RBC 3.77 L (3.80-5.40) m/uL Hgb 7.9 L (11.4-16.0) gm/dL Hct 26.2 L (34.0-46.0) % MCV 69.5 L (80.0-100.0) fL MCH 21.0 L (25.0-35.0) pg MCHC 30.3 L (31.0-37.0) g/dL RDW 19.9 H (11.5-15.5) % Lymphocytes # 0.9 L (1.0-4.8) k/uL Haptoglobin (31.2-198.0) mg/dL POC Glucose (mg/dL) 175 H (75-99) mg/dL RBC Folate (280 - 791) ng/mL Comments: Procedure note reviewed Assessment and Plan (1) Microcytic hypochromic anemia Narrative/Plan: Both upper and lower endoscopies performed today, report reviewed. Capsule pending. Iron studies reviewed, parenteral iron reasonable. Hematology will complete iron infusions outpatient. We will contact patient for a follow-up Current Visit: Yes Status: Acute Priority: High Code(s): D50.9 - IRON DEFICIENCY ANEMIA, UNSPECIFIED SNOMED Code(s): 26402496 Plan: attests: I have preformed H&P, seen and examined patient, developed impression and plan of care. Discussed with dictator. Agree with dictation, documented as a scribe.
== END 2020-11-20 16:06 | disposition home or self-care (01) | DRG 812 ==
LOC: EC 11:32 → 5NMEDONC 13:37
PROVIDERS: ADMIT Internal Medicine; ATTEND Internal Medicine
PROC: 30233N1 Transfusion of Nonautologous Red Blood Cells into Peripheral Vein, Percutaneous Approach (ICD-10-PCS; 2020-11-18)
PROC: 0DJD8ZZ Inspection of Lower Intestinal Tract, Via Natural or Artificial Opening Endoscopic (ICD-10-PCS; 2020-11-20)
PROC: 0DB78ZX Excision of Stomach, Pylorus, Via Natural or Artificial Opening Endoscopic, Diagnostic (ICD-10-PCS; principal; 2020-11-20 08:40)
PROC: 0DB98ZX Excision of Duodenum, Via Natural or Artificial Opening Endoscopic, Diagnostic (ICD-10-PCS; 2020-11-20 12:45)
DX: D50.9 Iron deficiency anemia, unspecified (principal); K31.7 Polyp of stomach and duodenum; D53.9 Nutritional anemia, unspecified; K21.00 Gastro-esophageal reflux disease with esophagitis, without bleeding; K57.30 Diverticulosis of large intestine without perforation or abscess without bleeding; I10 Essential (primary) hypertension; G89.29 Other chronic pain; M54.5 Low back pain; E11.9 Type 2 diabetes mellitus without complications; E03.9 Hypothyroidism, unspecified; F41.9 Anxiety disorder, unspecified; Z20.822 Contact with and (suspected) exposure to COVID-19; Z79.899 Other long term (current) drug therapy; Z79.890 Hormone replacement therapy
CPT/HCPCS: 36415; 43239; 45378; 80048; 80053; 81001; 82248; 82272; 82607; 82728; 82746; 82747; 83010; 83540; 83550; 83615; 83735; 85025; 85045; 86850; 86900; 86901; 86920; 87635; 88305; 88342; 91110; 96360; 99285

== ENCOUNTER → 2022-01-18 | Outpatient (CLI) | payer MEDICARE ==
--- NOTE | 2022-01-18 15:41 | MM ---
Reason for Exam: Screening (asymptomatic). Last mammogram was performed 1 year(s) and 4 month(s) ago. Patient History: Menarche at age 15. First Full-Term at age 22. Postmenopausal. Mother had breast cancer, age 60. Risk Values: Padma 5 year model risk: 3.2%. NCI Lifetime model risk: 5.4%. Prior Study Comparison: 12/31/2016 Bilateral Screening Mammogram, [facility]. 06/26/2018 Bilateral Screening Mammogram, [facility]. 09/17/2020 Bilateral Screening Mammogram, [facility]. Tissue Density: The breast tissue is heterogeneously dense. This may lower the sensitivity of mammography. Findings: Analyzed By CAD. There is no suspicious group of microcalcifications or new suspicious mass in either breast. Overall Assessment: Negative, BI-RAD 1 Management: Screening Mammogram of both breasts in 1 year. A clinical breast exam by your physician is recommended on an annual basis and results should be correlated with mammographic findings. Electronically signed and approved by: Joey Johnson DO
--- NOTE | 2022-01-19 06:48 | BD ---
EXAMINATION TYPE: Axial Bone Density DATE OF EXAM: 01/18/2022 COMPARISON: NONE CLINICAL HISTORY: 81 years year old Female. ICD-10 CODE: Z13.820 SCREENING FOR OSTEOPOROSIS Height: 65 Weight: 153.5 FRAX RISK QUESTIONS: Alcohol (3 or more units per day): NO Family History (Parent hip fracture): NO Glucocorticoids (More than 3mos): NO History of Fracture in Adulthood: LSPINE Secondary Osteoporosis: 1. Type 1 Diabetes: NO 2. Hyperthyroidism: NO 3. Menopause before 45: NO 4. Malnutrition: NO 5. Chronic liver disease: NO Rheumatoid Arthritis: NO Current Tobacco Use: NO RISK FACTORS HISTORY OF: Hip Fracture (Right/Left): NO Spine Fracture: YES When: 2021 History of Wrist Fracture: NO Surgery to Spine/Hip(right/left)/Wrist (right/left): NO Family History of Osteoporosis: NO Active: NO Diet low in dairy products/other sources of calcium: YES Postmenopausal woman: YES Take estrogen and/or progesterone medications: NO Lost more than 2 inches in height since high school: YES Frequent falls: NO Poor Health: NO Hyperparathyroidism: NO Adrenal Insufficiency: NO MEDICATIONS: Prednisone or other steroids: NO Thyroid Medications: LEVOTHYROXINE SINCE AGE 32 Osteoporosis Medications: NO Additional Medications: EZETIMIBE, BACLOFEN, VENLATAXINE, AMLODIPINE, IRON, METOPROLOL, VIT D. EXAM MEASUREMENTS: Bone mineral density about the R hip (g/cm2): 0.721 Bone mineral density about the L hip (g/cm2): 0.757 T Score values are as follows: -----R Neck: -2.3 -----L Neck: -2.0 -----R Total: -2.0 -----L Total: -1.5 BASELINE STUDY Bone mineral density about the R Wrist (g/cm2): 0.396 T Score values are as follows: -----Dist. R+U: -1.5 -----Prox. R+U: -2.6 -----Radius total: -2.5 BASELINE STUDY FRAX%s: The graph provided illustrates a 24.5% chance for a major osteoporotic fx and a 7.3% chance f or the hips probability for fx in 10 years time. IMPRESSION: Osteopenia (T Score between -2.5 and -1). There is slightly increased risk of fracture and the patient may be considered for treatment. Re-Screen 2-5 years. NOTE: T-SCORE=SD OF THE YOUNG ADULT MEAN.
== END | disposition home or self-care (01) ==
LOC: RADMAMWWP 14:50
PROVIDERS: ATTEND Internal Medicine
DX: Z12.31 Encounter for screening mammogram for malignant neoplasm of breast (principal); Z78.0 Asymptomatic menopausal state; Z80.3 Family history of malignant neoplasm of breast
CPT/HCPCS: 77063; 77067; 77080

== ENCOUNTER 2022-08-25 10:24 | Observation (INO) | payer MEDICARE ==
--- NOTE | 2022-08-25 10:55 | ED ---
Chest Pain HPI - General Chief Complaint: Chest Pain Stated Complaint: Chest Pain,SOB Source: patient, family Mode of arrival: wheelchair - History of Present Illness Initial Comments: 81-year-old female with past medical history of diabetes, thyroid disorder who presents to emergency department reporting chest pain, weakness and shortness of breath. States her symptoms have been going on for the past 7 days. She reports to a right-sided pleuritic chest pain shortness of breath and a nonproductive cough. No sick contacts with similar symptoms. No fevers. No nausea, vomiting or diarrhea. No previous history of cardiac disease. Denies ripping or tearing sensation to her back. No numbness, tingling or weakness in her extremities. No recent antibiotic or steroid use. Denies any underlying lung history. No history of DVT or PE. No calf pain or swelling. No history of heart failure. No other alleviating, precipitating or modifying factors - Related Data Home Medications Medication Instructions Recorded Confirmed Ezetimibe [Zetia] 10 mg PO DAILY 02/06/17 08/25/22 Levothyroxine Sodium [Synthroid] 75 mcg PO DAILY 11/18/20 08/25/22 Metoprolol Succinate (ER) [Toprol 50 mg PO DAILY 11/18/20 08/25/22 XL] Venlafaxine HCl ER [Effexor XR] 37.5 mg PO BID 11/18/20 08/25/22 amLODIPine BESYLATE/BENAZEPRIL 1 cap PO DAILY 11/18/20 08/25/22 [Lotrel 5-10 MG] rOPINIRole HCL [Requip] 1 mg PO TID 11/18/20 08/25/22 Aspirin EC [Ecotrin Low Dose] 81 mg PO DAILY 08/25/22 08/25/22 Cholecalciferol (Vitamin D3) 125 mcg PO DAILY 08/25/22 08/25/22 [Vitamin D3 (125 MCG = 5,000 IU)] Cyanocobalamin (Vitamin B-12) 1,000 mcg PO DAILY 08/25/22 08/25/22 [Vitamin B-12] Ferrous Sulfate [Iron (65 MG 325 mg PO DAILY 08/25/22 08/25/22 Elemental)] Insulin Glargine,Hum.rec.anlog 11 units SQ HS 08/25/22 08/25/22 [Lantus Solostar Pen] Insulin Lispro [humaLOG Kwikpen] See Protocol SQ ACHS 08/25/22 08/25/22 Metoprolol Succinate [Metoprolol 25 mg PO DAILY 08/25/22 08/25/22 Succinate ER] Vit C/E/Zn/Coppr/Lutein/Zeaxan 1 tab PO BID 08/25/22 08/25/22 [Preservision Areds 2 Chew Tab] tiZANidine [Zanaflex] 2 mg PO BID 08/25/22 08/25/22 Allergies Allergy/AdvReac Type Severity Reaction Status Date / Time amoxicillin Allergy Anaphylaxis Verified 08/25/22 11:19 bee venom protein (honey bee) Allergy Anaphylaxis Verified 08/25/22 11:19 Sulfa (Sulfonamide Allergy Anaphylaxis Verified 08/25/22 11:19 Antibiotics) Review of Systems ROS Statement: Those systems with pertinent positive or pertinent negative responses have been documented in the HPI. ROS Other: All systems not noted in ROS Statement are negative. EKG Findings - EKG Comments: EKG Findings:: EKG demonstrates sinus rhythm with a rate of 92. IL interval to 31. QRS 80. QTC of 416. Mild ST depression in lead 2. No acute ST segment elevation Past Medical History Past Medical History: Diabetes Mellitus, Hypertension, Thyroid Disorder Additional Past Medical History / Comment(s): irregular heart beat History of Any Multi-Drug Resistant Organisms: None Reported Past Surgical History: No Surgical Hx Reported Additional Past Surgical History / Comment(s): D and C Past Anesthesia/Blood Transfusion Reactions: No Reported Reaction Past Psychological History: Anxiety Smoking Status: Never smoker Past Alcohol Use History: None Reported Past Drug Use History: None Reported - Past Family History Mother Family Medical History: Cancer Additional Family Medical History / Comment(s): Breast CA Father Family Medical History: Unable to Obtain Course Vital Signs 08/25/22 08/25/22 08/25/22 10:26 12:00 15:11 Temperature 97.7 F Pulse Rate 102 H 94 89 Respiratory 18 18 18 Rate Blood Pressure 159/89 194/99 183/89 O2 Sat by Pulse 96 92 L 92 L Oximetry Chest Pain MDM - MDM Was pt. sent in by a medical professional or institution (, PA, TECH ED TEACHER, urgent care, hospital, or assisted...) When possible be specific @ -[No] Did you speak to anyone other than the patient for history (EMS, parent, family, police, friend...)? What history was obtained from this source @ -[No] Did you review nursing and triage notes (agree or disagree)? Why? @ -[I reviewed and agree with nursing and triage notes] Were old charts reviewed (outside hosp., previous admission, EMS record, old EKG, old radiological studies, urgent care reports/EKG's, assisted records)? Report findings @ -[No old charts were reviewed] Differential Diagnosis (chest pain, altered mental status, abdominal pain women, abdominal pain men, vaginal bleeding, weakness, fever, dyspnea, syncope, headache, dizziness, GI bleed, back pain, seizure, CVA, palpatations, mental health, musculoskeletal)? @ -[not applicable] EKG interpreted by me (3pts min.). @ -[As above] X-rays interpreted by me (1pt min.). @ -[None done] CT interpreted by me (1pt min.). @ -[None done] U/S interpreted by me (1pt. min.). @ -[None done] What testing was considered but not performed or refused? (CT, X-rays, U/S, labs)? Why? @ -[None] What meds were considered but not given or refused? Why? @ -[None] Did you discuss the management of the patient with other professionals (professionals i.e. , PA, TECH ED TEACHER, lab, RT, psych nurse, social sciences department chair, content management specialist, teacher, project control officer, case supervisor)? Give summary @ -[No] Was smoking cessation discussed for >3mins.? @ -[No] Was critical care preformed (if so, how long)? @ -[No] Were there social determinants of health that impacted care today? How? (Homelessness, low income, unemployed, alcoholism, drug addiction, transportation, low edu. Level, literacy, decrease access to med. care, fci, rehab)? @ -[No] Was there de-escalation of care discussed even if they declined (Discuss DNR or withdrawal of care, Hospice)? DNR status @ -[No] What co-morbidities impacted this encounter? (DM, HTN, Smoking, COPD, CAD, Cancer, CVA, ARF, Chemo, Hep., AIDS, mental health diagnosis, sleep apnea, morbid obesity)? @ -[None] Was patient admitted / discharged? Hospital course, mention meds given and route, prescriptions, significant lab abnormalities, going to OR and other pertinent info. @ -Upon arrival patient was placed into room 4. Thorough history and physical exam is performed. IV access established laboratory studies were conducted reviewed. D-dimer elevated at 1.58. Chest x-ray demonstrates a possible infiltrate on the right lung base. CTA is performed to better visualize this as well as to evaluate for elevated d-dimer. There is no acute pulmonary tablets of the patient has a loculated right pleural effusion fluid the major fissure. Questionable whether this is a lung mass. As the patient does have infectious symptoms of a cough and chills I will cover her with antibiotics. Recommended admission and therefore spoke with Dr. Graham from [facility]. Patient's awaiting a bed on the floor in stable condition Undiagnosed new problem with uncertain prognosis? @ -[No] Drug Therapy requiring intensive monitoring for toxicity (Heparin, Nitro, Insulin, Cardizem)? @ -[No] Were any procedures done? @ -[No] Diagnosis/symptom? @ -[default] Acute, or Chronic, or Acute on Chronic? @ -[default] Uncomplicated (without systemic symptoms) or Complicated (systemic symptoms)? @ -[default] Side effects of treatment? @ -[No] Exacerbation, Progression, or Severe Exacerbation? @ -[No] Poses a threat to life or bodily function? How? (Chest pain, [place], [place], pneumonia, PE, COPD, DKA, ARF, appy, cholecystitis, CVA, Diverticulitis, Homicidal, Suicidal, threat to staff... and all critical care pts) @ -[No] Disposition Clinical Impression: Chest pain, Pneumonia Disposition: ADMITTED IP TO THIS [facility] Condition: Stable Is patient prescribed a controlled substance at d/c from ED?: No Time of Disposition: 14:14 Decision to Admit Reason: Admit from EC Decision Date: 08/25/22 Decision Time: 14:14
--- NOTE | 2022-08-25 11:15 | XR ---
EXAMINATION TYPE: XR chest 2V DATE OF EXAM: 08/25/2022 COMPARISON: 02/06/2017 TECHNIQUE: PA and lateral views submitted. HISTORY: Chest pain FINDINGS: Findings suggest underlying COPD and there is right lower lobe infiltrate with small effusion. Heart size normal. Arthropathy of the shoulders. Diffuse osteopenia. Mild interstitial prominence. Scoliosi s of the spine with hypertrophic and degenerative changes. IMPRESSION: 1. COPD with right lower lobe infiltrate and small effusion. Perihilar atelectasis or infiltrate. No overt failure.
[2022-08-25 11:26] LABS: Basophils % (A) 0 %; Eosinophils # (A) 0.2 k/uL (0-0.7); Eosinophils % (A) 2 %; HCT 39.3 % (34.0-46.0); HGB 13.3 gm/dL (11.4-16.0); Lymphocytes # (A) 0.6 k/uL (1.0-4.8); Lymphocytes % (A) 5 %; MCH 30.7 pg (25.0-35.0); MCHC 33.8 g/dL (31.0-37.0); MCV 90.8 fL (80.0-100.0); Mean Platelet Volume 7.2; Monocytes # (A) 0.4 k/uL (0-1.0); Monocytes % (A) 4 %; Neutrophils # (A) 9.8 k/uL (1.3-7.7); Neutrophils % (A) 87 %; Platelet Count 454 k/uL (150-450); RBC 4.33 m/uL (3.80-5.40); RDW 12.5 % (11.5-15.5); WBC 11.3 k/uL (3.8-10.6)
[2022-08-25 11:42] LABS: ALT 20 U/L (4-34); AST 26 U/L (14-36); African American GFR (CKD) >90 (>60 ml/min/1.73 sqM); Albumin 4.1 g/dL (3.5-5.0); Alkaline Phosphatase 136 U/L (38-126); Anion Gap 13 mmol/L; Blood Urea Nitrogen 17 mg/dL (7-17); Calcium 9.6 mg/dL (8.4-10.2); Carbon Dioxide 24 mmol/L (22-30); Chloride 100 mmol/L (98-107); Glucose 299 mg/dL (74-99); INR 0.9 (<1.2); Lipase 28 U/L (23-300); Magnesium 1.8 mg/dL (1.6-2.3); Non-African American GFR(CKD) 84 (>60 ml/min/1.73 sqM); Partial Thromboplastin Time 24.5 sec (22.0-30.0); Potassium 4.3 mmol/L (3.5-5.1); Prothrombin Time 9.9 sec (9.0-12.0); Sodium 137 mmol/L (137-145); Total Bilirubin 0.9 mg/dL (0.2-1.3); Total Protein 7.9 g/dL (6.3-8.2)
--- NOTE | 2022-08-25 13:12 | CT ---
CT CHEST FOR PULMONARY EMBOLISM. EXAMINATION TYPE: CT chest angio for PE DATE OF EXAM: 08/25/2022 INDICATION: PE, Chest pain, SOB CT DLP: 273 mGycm, Automated exposure control for dose reduction was used. CONTRAST: Patient injected with 70 ml mL of Isovue 370. COMPARISON: None TECHNIQUE: CT of the chest is performed on a spiral scan at 2 mm thick sections. Study is performed with intravenous contrast timed for evaluation for pulmonary embolism. This will limit additional po rtions of the evaluation. 3-D MIP images reconstructed by the technologist are reviewed on the compu ter in the coronal and sagittal planes. FINDINGS: No persistent filling defects are evident to suggest an acute pulmonary embolism. No mediastinal or hilar adenopathy enlarged by CT criteria is evident. The ascending aorta diameter at the level of the main pulmonary artery is 3.1 cm. The main pulmonary artery diameter at the bifur cation is 3.0 cm. There is a 5.0 x 2.7 cm mass posterior right upper lung field. This measures 27 Hounsfield units and could be a loculated pleural fluid collection within the major fissure. Right suprahilar nodularity m easuring 1.2 cm may communicate with this mass. Series 401 image 66. There is a small right pleural effusion. This is loculated posteriorly right midlung and additional l oculated pleural effusions in the posterior lateral right lung base. Minimal adjacent compressive ate lectasis is present. Limited CT section through the upper abdomen are unremarkable. IMPRESSIONS: 1. No acute pulmonary embolism. 2. Loculated right pleural fluid major fissure versus right lung mass. 3. Loculated pleural fluid collections right peripheral lung.
[2022-08-25] MEDS ORDERED: PNEUMONIA PROTOCOL UTILIZED 1 EACH MISC PO PRN (14:01)
[2022-08-25] MEDS ORDERED: IPRATROPIUM-ALBUTEROL 3 ML NEB INHALATION PRN (14:01)
[2022-08-25] MEDS ORDERED: AZITHROMYCIN 500 MG in SODIUM CHLORIDE 0.9% 250 ML IVPB STA (14:01)
[2022-08-25] MEDS ORDERED: NALOXONE 0.4 MG/ML 1 ML VIAL IV PRN (14:14)
[2022-08-25] MEDS ORDERED: hydrALAZINE HCL 50 MG TAB PO STA (15:20)
--- NOTE | 2022-08-25 15:47 | P.HPIM ---
History of Present Illness H&P Date: 08/25/22 Patient is a 81-year-old female with history of hypertension, hypothyroidism, insulin-dependent diabetes, presenting for pleuritic chest pain and shortness of breath. She claims that her symptoms started about which we will, she had minor cough, nonproductive, then developed right-sided pleuritic chest pain. She denies any fevers, but did have chills. Denies any sick contacts or travel history. She has minimal nicotine use history for 1 year, occasional alcohol use, but denies any illicit drug use. 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 In the ED, she was afebrile, tachycardic to 102, respiratory rate 18, 159/89, saturating at 96% on room air. Laboratory workup shows WBC 11.3, platelet 454, d-dimer 1.58, troponin negative, proBNP 404. Chest x-ray shows blunting of right CP angle, perihilar opacity. EKG shows normal sinus rhythm with first- degree AV block. CTA shows no acute PE, loculated right pleural fluid major fissure versus right lung mass, loculated pleural fluid collection in right peripheral lung. Patient admitted for treatment of chest pain, community- acquired pneumonia, versus possible lung mass. Pertinent positives and negatives as discussed in HPI, a complete review of systems was performed and all other systems are negative. Patient seen and examined at bedside. Vital signs reviewed General: nontoxic, no distress, appears at stated age Derm: warm, dry Head: atraumatic, normocephalic, symmetric Eyes: EOMI, no lid lag, anicteric sclera, pupils equal round reactive to light ENT: Nose and ears atraumatic Neck: No thyromegaly, supple Mouth: no lip lesion, mucus membranes moist Cardiovascular: S1S2 reg, no murmur, no edema Lungs: clear to auscultation bilateral, no rhonchi, no rales, no wheeze, no accessory muscle use Abdominal: soft, nontender to palpation, no guarding, no appreciable organomegaly Ext: no gross muscle atrophy, muscle strength muscle strength 5 out of 5 in all 4 extremities, no contractures Neuro: CN II-XII grossly intact Psych: Alert, oriented, appropriate affect Assessment/Plan: Active: Pleuritic chest pain, rule out ACS Community-acquired pneumonia Loculated pleural effusion Possible lung mass Insulin-dependent diabetes, hyperglycemia Hypertensive urgency -EKG personally interpreted shows sinus rhythm with first-degree AV block -Chest x-ray personally interpreted shows blunting of right CP angle, perihilar opacity -Initial troponin was negative, repeat troponin pending, echo pending -Continue azithromycin 500 mg daily, 2 g Rocephin IV every 24 hours -Sputum cultures, Legionella, blood cultures pending -Pro calcitonin ordered -Pulmonology consulted -Continue 11 units of glargine at night, sliding scale insulin -Continue home antihypertensive medications -Hydralazine 50 twice a day added Chronic: Dyslipidemia Hypertension Hypothyroidism Depression The patient is admitted with an anticipated less than 2 midnight stay as observation status for evaluation of chest pain and pneumonia. Surrogate decision-maker: Son CODE STATUS: Full code DVT prophylaxis: Subcu heparin Anticipated discharge date: Pending clinical course Anticipated discharge place: Pending clinical course A total of 65 minutes was spent on the care of this complex patient more than 50% of the time was spent in counseling and care coordination. Past Medical History Past Medical History: Diabetes Mellitus, Hypertension, Thyroid Disorder Additional Past Medical History / Comment(s): irregular heart beat History of Any Multi-Drug Resistant Organisms: None Reported Past Surgical History: No Surgical Hx Reported Additional Past Surgical History / Comment(s): D and C Past Anesthesia/Blood Transfusion Reactions: No Reported Reaction Past Psychological History: Anxiety Smoking Status: Never smoker Past Alcohol Use History: None Reported Past Drug Use History: None Reported - Past Family History Mother Family Medical History: Cancer Additional Family Medical History / Comment(s): Breast CA Father Family Medical History: Unable to Obtain Medications and Allergies Home Medications Medication Instructions Recorded Confirmed Type Ezetimibe [Zetia] 10 mg PO DAILY 02/06/17 08/25/22 History Levothyroxine Sodium [Synthroid] 75 mcg PO DAILY 11/18/20 08/25/22 History Metoprolol Succinate (ER) [Toprol 50 mg PO DAILY 11/18/20 08/25/22 History XL] Venlafaxine HCl ER [Effexor XR] 37.5 mg PO BID 11/18/20 08/25/22 History amLODIPine BESYLATE/BENAZEPRIL 1 cap PO DAILY 11/18/20 08/25/22 History [Lotrel 5-10 MG] rOPINIRole HCL [Requip] 1 mg PO TID 11/18/20 08/25/22 History Aspirin EC [Ecotrin Low Dose] 81 mg PO DAILY 08/25/22 08/25/22 History Cholecalciferol (Vitamin D3) 125 mcg PO DAILY 08/25/22 08/25/22 History [Vitamin D3 (125 MCG = 5,000 IU)] Cyanocobalamin (Vitamin B-12) 1,000 mcg PO DAILY 08/25/22 08/25/22 History [Vitamin B-12] Ferrous Sulfate [Iron (65 MG 325 mg PO DAILY 08/25/22 08/25/22 History Elemental)] Insulin Glargine,Hum.rec.anlog 11 units SQ HS 08/25/22 08/25/22 History [Lantus Solostar Pen] Insulin Lispro [humaLOG Kwikpen] See Protocol SQ ACHS 08/25/22 08/25/22 History Metoprolol Succinate [Metoprolol 25 mg PO DAILY 08/25/22 08/25/22 History Succinate ER] Vit C/E/Zn/Coppr/Lutein/Zeaxan 1 tab PO BID 08/25/22 08/25/22 History [Preservision Areds 2 Chew Tab] tiZANidine [Zanaflex] 2 mg PO BID 08/25/22 08/25/22 History Allergies Allergy/AdvReac Type Severity Reaction Status Date / Time amoxicillin Allergy Anaphylaxis Verified 08/25/22 11:19 bee venom protein (honey bee) Allergy Anaphylaxis Verified 08/25/22 11:19 Sulfa (Sulfonamide Allergy Anaphylaxis Verified 08/25/22 11:19 Antibiotics) Physical Exam Vitals: Vital Signs Temp Pulse Resp BP Pulse Ox 08/25/22 15:11 89 18 183/89 92 L 08/25/22 12:00 94 18 194/99 92 L 08/25/22 10:26 97.7 F 102 H 18 159/89 96 Intake and Output 08/25/22 08/25/22 08/25/22 06:59 14:59 22:59 Other: Weight 68.039 kg Results CBC & Chem 7: 08/25/22 11:04 08/25/22 11:04 Labs: Abnormal Lab Results - Last 24 Hours (Table) 04/05/23 04/05/23 04/05/23 Range/Units 11:04 11:04 11:04 WBC 11.3 H (3.8-10.6) k/uL Plt Count 454 H (150-450) k/uL Neutrophils # 9.8 H (1.3-7.7) k/uL Lymphocytes # 0.6 L (1.0-4.8) k/uL D-Dimer 1.58 H (<0.60) mg/L FEU Glucose 299 H (74-99) mg/dL Alkaline Phosphatase 136 H (38-126) U/L
[2022-08-25] MEDS ORDERED: DEXTROSE 50% SYRINGE 50 ML IVP PRN ×2 (15:48)
[2022-08-25] MEDS: METOPROLOL SUCCINATE (ER) 50 MG TAB.ER.24H PO SCH (16:47)
[2022-08-25] MEDS: METOPROLOL SUCCINATE (ER) 25 MG TAB.ER.24H PO SCH (17:16)
[2022-08-25] MEDS: INSULIN ASPART (NovoLOG) 100 UNIT/ML VIAL SQ SCH ×2 (17:21→21:03)
[2022-08-25 18:12] LABS: Glucose,Whole Blood 327 mg/dL (70-110)
[2022-08-25] MEDS: IPRATROPIUM 0.5 MG/2.5 ML NEBU INHALATION PRN (18:28)
[2022-08-25] MEDS: ALBUTEROL NEBULIZED 2.5 MG/3 ML INHALATION PRN (18:28)
[2022-08-25] MEDS: hydrALAZINE HCL 50 MG TAB PO SCH (20:59)
[2022-08-25] MEDS: VENLAFAXINE HCL ER 37.5 MG CAP PO SCH (21:00)
[2022-08-25 21:02] LABS: Glucose,Whole Blood 309 mg/dL (70-110)
[2022-08-25] MEDS: INSULIN DETEMIR (LEVEMIR) 100 UNIT/ML SYR SQ SCH (21:05)
--- NOTE | 2022-08-26 03:20 | P.CNPUL ---
History of Present Illness Consult date: 08/26/22 Requesting physician: Salud Vo Reason for consult: dyspnea, chest pain, pneumonia Chief complaint: Shortness of breath and chest pain History of present illness: I'm seeing this patient in new consultation today 08/26/2022 for possible community-acquired pneumonia and loculated pleural effusion. This is a 81-year-old white female with past medical history of diabetes mellitus, hyperlipidemia, hypertension, hypothyroidism, depression. Patient came into the emergency room yesterday evening with complaints of shortness of breath and right-sided chest pain for about 7 days. The chest pain is worse with deep inspiration and coughing. She denies any fever, cough, hemoptysis, palpitat ions, lightheadedness, syncope. She denies any significant history of lung disease. No significant smoking history. Patient is currently walking around in the room, on room air, in no acute distress. Chest x-ray done on arrival showed some COPD-like changes, right lower lobe infiltrate, and small right pleural effusion. There are also perihilar infiltrates versus atelectasis. A follow-up chest CTA showed no evidence of pulmonary embolism, a loculated right pleural fluid collection in the major fissure versus right lung mass, and a loculated pleural fluid collection of the right peripheral lung. CBC done on arrival showed some mild leukocytosis with a WBC count 11.3, hemoglobin 13.3, h ematocrit 39.3, platelets 4 54,000. D-dimer was mildly elevated at 1.58. BMP shows sodium 137, potassium 4.3, chloride 100, serum CO2 24, BUN 17, creatinine 0.67, glucose 299. Troponins negative 1. NT ProBNP low at 404. Patient was negative for influenza,, RSV, COVID-19. Negative legionella urine antigen. Patient is currently covered on a combination of Rocephin and Zithromax. She is also receiving when necessary bronchodilators. Vital signs are stable. Review of Systems REVIEW OF SYSTEMS: CONSTITUTIONAL: Denies any recent significant weight loss or weight gain. EYES: Denies change in vision. EARS, NOSE, MOUTH, THROAT: Denies headaches, denies sore throat. CARDIOVASCULAR: See HPI. RESPIRATORY: See HPI GASTROINTESTINAL: Denies change in appetite, abdominal pain, nausea and vomiting, or diarrhea GENITOURINARY: Denies hematuria, denies infections. MUSKULOSKELETAL: Denies pain, denies swelling. INTEGUMENTARY: Denies rash, denies eczema. NEUROLOGICAL: Denies recent memory loss, no recent seizure activity. PSYCHIATRIC: Denies anxiety, denies depression. HEMATOLOGIC/LYMPHATIC: Denies anemia, denies enlarged lymph node Past Medical History Past Medical History: Diabetes Mellitus, Hypertension, Thyroid Disorder Additional Past Medical History / Comment(s): heart palpitations, History of Any Multi-Drug Resistant Organisms: None Reported Past Surgical History: No Surgical Hx Reported Additional Past Surgical History / Comment(s): D&C. Past Anesthesia/Blood Transfusion Reactions: No Reported Reaction Past Psychological History: Anxiety Smoking Status: Never smoker Past Alcohol Use History: None Reported Past Drug Use History: None Reported - Past Family History Mother Family Medical History: Cancer Additional Family Medical History / Comment(s): Breast CA Father Family Medical History: Unable to Obtain Medications and Allergies Home Medications Medication Instructions Recorded Confirmed Type Ezetimibe [Zetia] 10 mg PO DAILY 02/06/17 08/25/22 History Levothyroxine Sodium [Synthroid] 75 mcg PO DAILY 11/18/20 08/25/22 History Metoprolol Succinate (ER) [Toprol 50 mg PO DAILY 11/18/20 08/25/22 History XL] Venlafaxine HCl ER [Effexor XR] 37.5 mg PO BID 11/18/20 08/25/22 History amLODIPine BESYLATE/BENAZEPRIL 1 cap PO DAILY 11/18/20 08/25/22 History [Lotrel 5-10 MG] rOPINIRole HCL [Requip] 1 mg PO TID 11/18/20 08/25/22 History Aspirin EC [Ecotrin Low Dose] 81 mg PO DAILY 08/25/22 08/25/22 History Cholecalciferol (Vitamin D3) 125 mcg PO DAILY 08/25/22 08/25/22 History [Vitamin D3 (125 MCG = 5,000 IU)] Cyanocobalamin (Vitamin B-12) 1,000 mcg PO DAILY 08/25/22 08/25/22 History [Vitamin B-12] Ferrous Sulfate [Iron (65 MG 325 mg PO DAILY 08/25/22 08/25/22 History Elemental)] Insulin Glargine,Hum.rec.anlog 11 units SQ HS 08/25/22 08/25/22 History [Lantus Solostar Pen] Insulin Lispro [humaLOG Kwikpen] See Protocol SQ ACHS 08/25/22 08/25/22 History Metoprolol Succinate [Metoprolol 25 mg PO DAILY 08/25/22 08/25/22 History Succinate ER] Vit C/E/Zn/Coppr/Lutein/Zeaxan 1 tab PO BID 08/25/22 08/25/22 History [Preservision Areds 2 Chew Tab] tiZANidine [Zanaflex] 2 mg PO BID 08/25/22 08/25/22 History Allergies Allergy/AdvReac Type Severity Reaction Status Date / Time amoxicillin Allergy Anaphylaxis Verified 08/25/22 11:19 bee venom protein (honey bee) Allergy Anaphylaxis Verified 08/25/22 11:19 Sulfa (Sulfonamide Allergy Anaphylaxis Verified 08/25/22 11:19 Antibiotics) Physical Exam Vitals: Vital Signs Temp Pulse Pulse Resp BP BP Pulse Ox 08/25/22 20:00 98.5 F 89 17 171/85 97 08/25/22 18:49 88 08/25/22 18:28 90 95 08/25/22 18:05 89 18 173/98 98 08/25/22 15:11 89 18 183/89 92 L 08/25/22 12:00 94 18 194/99 92 L 08/25/22 10:26 97.7 F 102 H 18 159/89 96 Intake and Output 08/25/22 08/25/22 08/26/22 14:59 22:59 06:59 Output Total 200 Balance -200 Output: Urine 200 Other: # Voids 1 Weight 68.039 kg 68.039 kg GENERAL EXAM: Alert, 81-year-old white female, comfortable in no apparent distress. HEAD: Normocephalic and atraumatic EYES: Normal reaction of pupils, equal size. NOSE: Clear with pink turbinates. THROAT: No erythema or exudates. NECK: No masses, no JVD. CHEST: No chest wall deformity. LUNGS: Equal air entry with scattered crackles heard throughout the right lung. There is some focal dullness anteriorly. No wheezes, rhonchi. No conversational dyspnea or accessory muscle use.. CVS: S1 and S2 normal with no audible murmur, regular rhythm. No extra heart sounds ABDOMEN: No hepatosplenomegaly, active bowel sounds, no guarding or rigidity. SPINE: No scoliosis or deformity SKIN: No rashes CENTRAL NERVOUS SYSTEM: No focal deficits, tone is normal in all 4 extremities. EXTREMITIES: There is no peripheral edema, clubbing, or cyanosis. Peripheral pulses are intact. Results - Laboratory Findings CBC and BMP: 08/25/22 11:04 08/25/22 11:04 PT/INR, D-dimer PT 9.9 sec (9.0-12.0) 08/25/22 11:04 INR 0.9 (<1.2) 08/25/22 11:04 D-Dimer 1.58 mg/L FEU (<0.60) H 08/25/22 11:04 Abnormal lab findings: Abnormal Labs 08/25/22 08/25/22 08/25/22 11:04 11:04 11:04 WBC 11.3 H Plt Count 454 H Neutrophils # 9.8 H Lymphocytes # 0.6 L D-Dimer 1.58 H Glucose 299 H POC Glucose (mg/dL) Alkaline Phosphatase 136 H 08/25/22 08/25/22 18:01 21:00 WBC Plt Count Neutrophils # Lymphocytes # D-Dimer Glucose POC Glucose (mg/dL) 327 H 309 H Alkaline Phosphatase - Diagnostic Findings Chest x-ray: image reviewed CT scan - chest: image reviewed Assessment and Plan Assessment: Suspected community-acquired pneumonia. Abnormal chest CTA showed a loculated right pleural fluid collection in the major fissure versus right lung mass and a loculated pleural fluid collection the right peripheral lung. Suspected pseudotumor with fluid collection in the right major fissure versus lung mass Chest pain most likely related to above. Ischemia has been ruled out Diabetes mellitus type 2 Hyperlipidemia Hypertension Hypothyroidism Depression Ex-smoker, patient has a remote not significant history of smoking for 1 year Plan: Patient's medications, labs, chest x-ray were reviewed Continue antibiotics for community-acquired pneumonia Check pro calcitonin level We'll obtain interventional radiology consult for potential drainage of loculated pleural effusion Culture pleural fluid Repeat 2 view chest x-ray in the morning On room air Continue when necessary bronchodilators Sputum culture ordered Blood cultures pending Echocardiogram pending We will continue to follow I have personally seen and examined the patient, performed the documentation and the assessment and plan as written. Number of minutes spent on the visit:20 Time with Patient: Greater than 30
[2022-08-26] MEDS: LEVOTHYROXINE 75 MCG TAB PO SCH (05:36)
[2022-08-26 07:40] LABS: Glucose,Whole Blood 243 mg/dL (70-110)
[2022-08-26] MEDS: CHOLECALCIFEROL 125 MCG (5000 IU) TABLET PO SCH (08:34)
[2022-08-26] MEDS: CYANOCOBALAMIN 500 MCG TAB PO SCH (08:34)
[2022-08-26] MEDS: lisinopriL 10 MG TAB PO SCH (08:34)
[2022-08-26] MEDS: amLODIPine 5 MG TAB PO SCH (08:35)
[2022-08-26] MEDS: VENLAFAXINE HCL ER 37.5 MG CAP PO SCH ×2 (08:35→20:28)
[2022-08-26] MEDS: hydrALAZINE HCL 50 MG TAB PO SCH ×2 (08:35→20:28)
[2022-08-26] MEDS: INSULIN ASPART (NovoLOG) 100 UNIT/ML VIAL SQ SCH ×4 (08:36→21:41)
[2022-08-26] MEDS: METOPROLOL SUCCINATE (ER) 25 MG TAB.ER.24H PO SCH (08:36)
[2022-08-26] MEDS: METOPROLOL SUCCINATE (ER) 50 MG TAB.ER.24H PO SCH (08:36)
[2022-08-26] MEDS ORDERED: FERROUS SULFATE 325 MG TAB PO SCH ×2 (09:00→21:00)
[2022-08-26] MEDS ORDERED: NON FORMULARY DRUG (Amlodipine Besylate/Benazepril [Lotrel 5-10 Mg] 1 EACH Capsule) PO SCH (09:00)
[2022-08-26] MEDS ORDERED: ASPIRIN 81 MG PO SCH ×2 (09:00→21:00)
[2022-08-26] MEDS ORDERED: AZITHROMYCIN 500 MG TAB PO SCH (09:00)
[2022-08-26] MEDS ORDERED: EZETIMIBE 10 MG TAB PO SCH ×2 (09:00→21:00)
--- NOTE | 2022-08-26 09:25 | XR ---
EXAMINATION TYPE: XR chest 2V DATE OF EXAM: 08/26/2022 COMPARISON: 08/25/2022 HISTORY: Shortness of breath TECHNIQUE: Frontal and lateral views of the chest are obtained. FINDINGS: Scattered senescent parenchymal changes noted. Hyperinflation compatible with COPD. Right upper lobe infiltrate with pleural thickening and parapneumonic effusion persists. Correlate cl inically and progress studies are advised. Heart size is stable. Mediastinal structures are stable and grossly unremarkable. No evidence for hilar prominence. Degenerative changes dorsal spine. IMPRESSION: 1. Right upper lobe infiltrate with pleural thickening and parapneumonic effusion persists. Correlate clinically and progress studies are advised.
[2022-08-26] MEDS: IPRATROPIUM 0.5 MG/2.5 ML NEBU INHALATION PRN (09:44)
[2022-08-26] MEDS: ALBUTEROL NEBULIZED 2.5 MG/3 ML INHALATION PRN (09:44)
[2022-08-26 12:18] LABS: Glucose,Whole Blood 236 mg/dL (70-110)
--- NOTE | 2022-08-26 13:39 | P.PN ---
Subjective Progress Note Date: 08/26/22 Hospital Course: 81-year-old female with history of hypertension, hypothyroidism, insulin- dependent diabetes, presenting for pleuritic chest pain and shortness of breath. In the ED, she was afebrile, tachycardic to 102, respiratory rate 18, 159/89, saturating at 96% on room air. Laboratory workup shows WBC 11.3, platelet 454, d-dimer 1.58, troponin negative, proBNP 404. Chest x-ray shows blunting of right CP angle, perihilar opacity. EKG shows normal sinus rhythm with first-degree AV block. CTA shows no acute PE, loculated right pleural fluid major fissure versus right lung mass, loculated pleural fluid collection in right peripheral lung. Patient admitted for treatment of chest pain, community- acquired pneumonia, versus possible lung mass. Subjective: Patient seen and examined at bedside. No acute events overnight. Claims that she still has pleuritic chest pain, shortness of breath has improved. She has minimal nonproductive cough. Pertinent positives and negatives as discussed above, a complete review of systems was performed and all other systems are negative. Vitals Signs Reviewed. General: nontoxic, no distress, appears at stated age Derm: warm, dry Head: atraumatic, normocephalic, symmetric Eyes: EOMI, no lid lag, anicteric sclera Mouth: no lip lesion, mucus membranes moist Cardiovascular: S1S2 reg, no murmur Lungs: CTA bilateral, no rhonchi, no rales , no accessory muscle use Abdominal: soft, nontender to palpation, no guarding, no appreciable organomegaly Ext: no gross muscle atrophy, no edema, no contractures Neuro: CN II-XI grossly intact, no focal neuro deficits Psych: Alert, oriented, appropriate affect Data Reviewed Today: Pertinent Labs: Pro calcitonin was 0.08, A1c 8.2, negative troponin, blood sugars range between 236-327 Repeat chest x-ray, personally interpreted, shows persistent infiltrate as well as right-sided pleural effusion Assessment and Plan: Pleuritic chest pain, rule out ACS Loculated pleural effusion Possible lung mass Insulin-dependent diabetes, hyperglycemia Hypertensive urgency -Troponin was negative, ACS ruled out -Echo pending -Pro calcitonin negative -Antibiotics discontinued -Sputum cultures, Legionella, blood cultures pending -Pulmonology following, IR consult for possible thoracentesis -Continue 11 units of glargine at night, sliding scale insulin, patient is refusing to take insulin from the hospital -Continue home antihypertensive medications -Hydralazine 50 twice a day added this admission Chronic: Dyslipidemia Hypertension Hypothyroidism Depression DVT ppx: SCDs Code status: Full Code Anticipated discharge place: Likely home Anticipated discharge time: 1-2 days Objective - Vital Signs Vital signs: Vital Signs Temp 98.4 F 08/26/22 07:00 Pulse 86 08/26/22 10:01 Resp 20 08/26/22 07:00 BP 188/81 08/26/22 07:00 Pulse Ox 97 08/26/22 09:48 FiO2 Intake & Output 08/25/22 08/26/22 08/26/22 18:59 06:59 18:59 Intake Total 118 Output Total 200 Balance -200 118 Weight 68.039 kg Intake: Oral 118 Output: Urine 200 Other: Voiding Method Toilet # Voids 2 - Labs CBC & Chem 7: 08/25/22 11:04 08/25/22 11:04 Labs: Abnormal Lab Results - Last 24 Hours (Table) 08/25/22 08/25/22 08/25/22 Range/Units 15:48 18:01 21:00 POC Glucose (mg/dL) 327 H 309 H (70-110) mg/dL Hemoglobin A1c 8.2 H (0.0-6.0) % 08/26/22 08/26/22 Range/Units 07:38 12:16 POC Glucose (mg/dL) 243 H 236 H (70-110) mg/dL Hemoglobin A1c (0.0-6.0) %
--- NOTE | 2022-08-26 17:17 | CA ---
Transthoracic Echo Report Name: Isidra Teran Age: 81 Gender: F : 1940 Exam Date: 08/26/2022 11:17 Exam Location: [facility] Ht (in): 67 Wt (lb): 150 Ordering Physician: Salud Vo DO Attending/Referring Phys: [id number], Tavo Prescription Clerk Jia Madrid, RD Procedure CPT: Indications: plueral effusions Cardiac Hx: Technical Quality: Good Contrast 1: Total Dose (mL): Contrast 2: Total Dose (mL): MEASUREMENTS (Male / Female) Normal Values 2D ECHO LV Diastolic Diameter PLAX 3.6 cm 4.2 - 5.9 / 3.9 - 5.3 cm LV Systolic Diameter PLAX 1.5 cm IVS Diastolic Thickness 1.0 cm 0.6 - 1.0 / 0.6 - 0.9 cm LVPW Diastolic Thickness 1.0 cm 0.6 - 1.0 / 0.6 - 0.9 cm LV Relative Wall Thickness 0.5 RV Internal Dim ED PLAX 2.4 cm M-MODE Aortic Root Diameter MM 3.0 cm MV E Point Septal Separation 0.2 cm AV Cusp Separation MM 2.0 cm DOPPLER AV Peak Velocity 194.5 cm/s AV Peak Gradient 15.1 mmHg AV Mean Velocity 140.6 cm/s AV Mean Gradient 8.6 mmHg AV Velocity Time Integral 38.9 cm MV Deceleration Toombs 205.2 cm/s??? Mitral E Point Velocity 82.1 cm/s Mitral A Point Velocity 125.7 cm/s Mitral E to A Ratio 0.7 MV Deceleration Time 399.9 ms TR Peak Velocity 221.6 cm/s TR Peak Gradient 19.6 mmHg Right Ventricular Systolic Press 29.6 mmHg FINDINGS Left Ventricle Left ventricular ejection fraction is estimated at more than 65 %. Small left ventricular cavity. Left ventricular wall thickness normal. Small LVOT obstraction with max gradient of 15 mmHg and mean gradient of 9 mmHg. Hyperdynamic LV systolic function Right Ventricle Normal right ventricular size and function. Right ventricular systolic pressure within normal limits. Right Atrium Normal right atrial size. Left Atrium Normal left atrial size. Mitral Valve Structurally normal mitral valve. No mitral stenosis, regurgitation or prolapse. Aortic Valve Trileaflet aortic valve. No aortic valve stenosis or regurgitation. Tricuspid Valve Structurally normal tricuspid valve. Mild tricuspid regurgitation. Pulmonic Valve Structurally normal pulmonic valve. No pulmonic regurgitation. Pericardium Normal pericardium. No pericardial effusion. Aorta Normal size aortic root and proximal ascending aorta. CONCLUSIONS Normal LV size and systolic function. Small left ventricular cavity there is LV OD obstruction at rest of 15 mmHg. Ejection fraction is excellent probably hyperdynamic. Mild mitral and tricuspid regurgitation no pericardial effusion Previewed by: Dr. Louise Martinez MD (Electronically Signed) Final Date: 26 August 2022 17:17
[2022-08-26 17:33] LABS: Glucose,Whole Blood 175 mg/dL (70-110)
[2022-08-26] MEDS: ACETAMINOPHEN TAB 325 MG TAB PO PRN (20:28)
[2022-08-26 21:35] LABS: Glucose,Whole Blood 231 mg/dL (70-110)
[2022-08-26] MEDS: INSULIN DETEMIR (LEVEMIR) 100 UNIT/ML SYR SQ SCH (21:41)
[2022-08-26 22:53] VITALS: RESP 16
[2022-08-27] MEDS: LEVOTHYROXINE 75 MCG TAB PO SCH (05:37)
[2022-08-27 06:33] LABS: Glucose,Whole Blood 53 mg/dL (70-110)
[2022-08-27] MEDS: INSULIN ASPART (NovoLOG) 100 UNIT/ML VIAL SQ SCH ×2 (06:38→13:00)
[2022-08-27 06:50] LABS: Glucose,Whole Blood 98 mg/dL (70-110)
[2022-08-27] MEDS ORDERED: methylPREDNISolone 4 MG TAB TAPER PO SCH (09:00)
[2022-08-27 09:10] LABS: LDH 198 U/L (120-246); Total Protein 7.1 g/dL (6.3-8.2)
[2022-08-27] MEDS: CYANOCOBALAMIN 500 MCG TAB PO SCH (09:18)
[2022-08-27] MEDS: METOPROLOL SUCCINATE (ER) 25 MG TAB.ER.24H PO SCH (09:18)
[2022-08-27] MEDS: METOPROLOL SUCCINATE (ER) 50 MG TAB.ER.24H PO SCH (09:18)
[2022-08-27] MEDS: lisinopriL 10 MG TAB PO SCH (09:18)
[2022-08-27] MEDS: hydrALAZINE HCL 50 MG TAB PO SCH (09:18)
[2022-08-27] MEDS: amLODIPine 5 MG TAB PO SCH (09:18)
[2022-08-27] MEDS: VENLAFAXINE HCL ER 37.5 MG CAP PO SCH (09:18)
[2022-08-27] MEDS: CHOLECALCIFEROL 125 MCG (5000 IU) TABLET PO SCH (09:25)
[2022-08-27 09:27] LABS: C Reactive Protein 3.4 mg/dL (<1.0)
[2022-08-27] MEDS: ACETAMINOPHEN TAB 325 MG TAB PO PRN (09:28)
--- NOTE | 2022-08-27 10:29 | US ---
EXAMINATION TYPE: US chest DATE OF EXAM: 08/27/2022 COMPARISON: NONE CLINICAL HISTORY: check for fluid pocket right please. Right pleural effusion TECHNIQUE: Targeted ultrasound of the posterior lower right hemithorax EXAM MEASUREMENTS: Right Pleural Effusion pocket size: 2.8 cm Right skin surface to fluid distance: 2.3 cm Right side NOT marked for possible thoracentesis outside the dept. Left side NOT marked for possible thoracentesis outside the dept. Pulmonologists are able to review the images in the patient?s EMR. IMPRESSIONS: Tiny right pleural effusion
[2022-08-27 10:30] LABS: Glucose,Whole Blood 196 mg/dL (70-110)
[2022-08-27 11:46] LABS: Basophils % (A) 0 %; Eosinophils # (A) 0.3 k/uL (0-0.7); Eosinophils % (A) 4 %; HCT 43.1 % (34.0-46.0); HGB 14.2 gm/dL (11.4-16.0); Lymphocytes # (A) 0.5 k/uL (1.0-4.8); Lymphocytes % (A) 6 %; MCH 30.6 pg (25.0-35.0); MCV 92.7 fL (80.0-100.0); Mean Platelet Volume 6.6; Monocytes # (A) 0.3 k/uL (0-1.0); Monocytes % (A) 3 %; Neutrophils % (A) 86 %; Platelet Count 501 k/uL (150-450); RBC 4.64 m/uL (3.80-5.40); RDW 12.5 % (11.5-15.5); WBC 8.2 k/uL (3.8-10.6)
[2022-08-27 12:05] LABS: ALT 18 U/L (4-34); AST 27 U/L (14-36); African American GFR (CKD) 88 (>60 ml/min/1.73 sqM); Albumin 3.8 g/dL (3.5-5.0); Albumin/Globulin Ratio 1.1; Alkaline Phosphatase 101 U/L (38-126); Anion Gap 10 mmol/L; Blood Urea Nitrogen 17 mg/dL (7-17); Calcium 9.8 mg/dL (8.4-10.2); Carbon Dioxide 25 mmol/L (22-30); Chloride 99 mmol/L (98-107); Globulin 3.6 g/dL; Glucose 219 mg/dL (74-99); Non-African American GFR(CKD) 76 (>60 ml/min/1.73 sqM); Potassium 4.5 mmol/L (3.5-5.1); Sodium 134 mmol/L (137-145); Total Bilirubin 0.6 mg/dL (0.2-1.3); Total Protein 7.4 g/dL (6.3-8.2)
--- NOTE | 2022-08-27 12:10 | P.PN ---
Subjective Progress Note Date: 08/27/22 I'm seeing this patient in new consultation today 08/26/2022 for possible community-acquired pneumonia and loculated pleural effusion. This is a 81-year-old white female with past medical history of diabetes mellitus, hyperlipidemia, hypertension, hypothyroidism, depression. Patient came into the emergency room yesterday evening with complaints of shortness of breath and right-sided chest pain for about 7 days. The chest pain is worse with deep inspiration and coughing. She denies any fever, cough, hemoptysis, palpitations, lightheadedness, syncope. She denies any significant history of lung disease. No significant smoking history. Patient is currently walking around in the room, on room air, in no acute distress. Chest x-ray done on arrival showed some COPD-like changes, right lower lobe infiltrate, and small right pleural effusion. There are also perihilar infiltrates versus atelect asis. A follow-up chest CTA showed no evidence of pulmonary embolism, a loculated right pleural fluid collection in the major fissure versus right lung mass, and a loculated pleural fluid collection of the right peripheral lung. CBC done on arrival showed some mild leukocytosis with a WBC count 11.3, hemoglobin 13.3, hematocrit 39.3, platelets 4 54,000. D-dimer was mildly elevated at 1.58. BMP shows sodium 137, potassium 4.3, chloride 100, serum CO2 24, BUN 17, creatinine 0.67, glucose 299. Troponins negative 1. NT ProBNP low at 404. Patient was negative for influenza,, RSV, COVID-19. Negative legionella urine antigen. Patient is currently covered on a combination of Rocephin and Zithromax. She is also receiving when necessary bronchodilators. Vital signs are stable. The patient is seen today 08/27/2022 in follow-up on the regular medical floor. She is currently sitting up in bed. Maintaining good O2 saturations in the 90s on room air and afebrile. Hemodynamically stable. Awake and alert in no acute distress. Denies any worsening shortness of breath, cough or congestion. Her right-sided chest pain on inspiration has subsided. Still with some discomfort with deep cough or sneezing. Interventional radiology did not feel he could not safely place a needle into the loculated pleural fluid collection in the right peripheral lung. Ultrasound of the right chest reveals only a small 2.8 cm pocket. Blood cultures revealed no growth. White count 8.2. Hemoglobin 14.2. Platelets 501. Glucose 196. Pro-calcitonin 0.08. Objective - Vital Signs Vital signs: Vital Signs Temp 97.9 F 08/27/22 07:00 Pulse 85 08/27/22 07:00 Resp 16 08/27/22 07:00 BP 160/72 08/27/22 07:00 Pulse Ox 95 08/27/22 07:00 FiO2 Intake & Output 08/26/22 08/27/22 08/27/22 18:59 06:59 18:59 Intake Total 236 118 Balance 236 118 Intake: Oral 236 118 Other: Voiding Method Toilet Toilet # Voids 1 1 - Exam GENERAL EXAM: Alert, active, 81-year-old female, on room air, comfortable in no apparent distress. HEAD: Normocephalic. EYES: Normal reaction of pupils, equal size. NOSE: Clear with pink turbinates. THROAT: No erythema or exudates. NECK: No masses, no JVD. CHEST: No chest wall deformity. LUNGS: Equal air entry with no crackles, wheeze, rhonchi or dullness. CVS: S1 and S2 normal with no audible murmur, regular rhythm. ABDOMEN: No hepatosplenomegaly, normal bowel sounds, no guarding or rigidity. SPINE: No scoliosis or deformity SKIN: No rashes CENTRAL NERVOUS SYSTEM: No focal deficits, tone is normal in all 4 extremities. EXTREMITIES: There is no peripheral edema. No clubbing, no cyanosis. Peripheral pulses are intact. - Labs CBC & Chem 7: 08/27/22 11:23 08/25/22 11:04 Labs: Abnormal Lab Results - Last 24 Hours (Table) 08/26/22 08/26/22 08/26/22 Range/Units 12:16 17:31 21:34 Plt Count (150-450) k/uL Lymphocytes # (1.0-4.8) k/uL ESR (0-20) mm/hr POC Glucose (mg/dL) 236 H 175 H 231 H (70-110) mg/dL C-Reactive Protein (<1.0) mg/dL 08/27/22 08/27/22 08/27/22 Range/Units 06:32 08:38 08:38 Plt Count (150-450) k/uL Lymphocytes # (1.0-4.8) k/uL ESR 86 H (0-20) mm/hr POC Glucose (mg/dL) 53 L (70-110) mg/dL C-Reactive Protein 3.4 H (<1.0) mg/dL 08/27/22 08/27/22 Range/Units 10:27 11:23 Plt Count 501 H (150-450) k/uL Lymphocytes # 0.5 L (1.0-4.8) k/uL ESR (0-20) mm/hr POC Glucose (mg/dL) 196 H (70-110) mg/dL C-Reactive Protein (<1.0) mg/dL Microbiology - Last 24 Hours (Table) 08/25/22 14:00 Blood Culture - Preliminary Blood No Growth after 24 hours 08/25/22 13:45 Blood Culture - Preliminary Blood No Growth after 24 hours Assessment and Plan Assessment: Right-sided chest pain. Abnormal chest CTA showed a loculated right pleural fluid collection in the major fissure versus right lung mass and a loculated ple ural fluid collection the right peripheral lung. Interventional radiology consulted but did not feel he could safely place a needle and for diagnosis. Pro-calcitonin 0.08. Pseudotumor with fluid collection in the right major fissure versus lung mass Diabetes mellitus type 2 Hyperlipidemia Hypertension Hypothyroidism Depression Ex-smoker, patient has a remote not significant history of smoking for 1 year Plan: The patient was seen and evaluated Ultrasound of the chest, labs and medications reviewed Interventional radiology is unable to place a needle safely for diagnosis Labs ordered for possible underlying autoimmune disorder Cleared for discharge from pulmonary standpoint Complete a Medrol Dosepak Follow-up in the office in 2 weeks with possible repeat computed tomography scan in 3 weeks Patient verbalized understanding and is agreeable to the plan I have personally seen and examined the patient, performed the documentation and the assessment and plan as written. Number of minutes spent on the visit: 10.
[2022-08-27 12:17] LABS: Glucose,Whole Blood 271 mg/dL (70-110)
[2022-08-27 13:46] LABS: DNA Double-Stranded Indetermin (NEGATIVE)
[2022-08-27 14:57] VITALS: BP 120/55; PULSE 82; TEMP 98.1
[2022-08-27 15:39] LABS: Rheumatoid Factor, Qnt <10 IU/mL (0-15)
--- NOTE | 2022-08-27 15:56 | P.DS ---
Providers Date of admission: 08/25/22 14:01 Expected date of discharge: 08/27/22 Attending physician: Papito Graham MD Consults: 08/25/22 14:01 Consult Physician Routine Consulting Provider: Christian Mauricio Consult Reason/Comments: acute resp insuff, CAP, loculated fluid mass Do you want consulting provider notified?: Yes Primary care physician: Garett Jaffe MD Hospital Course: HPI "Patient is a 81-year-old female with history of hypertension, hypothyroidism, insulin-dependent diabetes, presenting for pleuritic chest pain and shortness of breath. She claims that her symptoms started about which we will, she had minor cough, nonproductive, then developed right-sided pleuritic chest pain. She denies any fevers, but did have chills. Denies any sick contacts or travel history. She has minimal nicotine use history for 1 year, occasional alcohol use, but denies any illicit drug use. 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 In the ED, she was afebrile, tachycardic to 102, respiratory rate 18, 159/89, saturating at 96% on room air. Laboratory workup shows WBC 11.3, platelet 454, d-dimer 1.58, troponin negative, proBNP 404. Chest x-ray shows blunting of right CP angle, perihilar opacity. EKG shows normal sinus rhythm with first- degree AV block. CTA shows no acute PE, loculated right pleural fluid major fissure versus right lung mass, loculated pleural fluid collection in right peripheral lung. Patient admitted for treatment of chest pain, community- acquired pneumonia, versus possible lung mass." Progress note of 08/26/2022 "Assessment and Plan: Pleuritic chest pain, rule out ACS Loculated pleural effusion Possible lung mass Insulin-dependent diabetes, hyperglycemia Hypertensive urgency -Troponin was negative, ACS ruled out -Echo pending -Pro calcitonin negative -Antibiotics discontinued -Sputum cultures, Legionella, blood cultures pending -Pulmonology following, IR consult for possible thoracentesis -Continue 11 units of glargine at night, sliding scale insulin, patient is refusing to take insulin from the hospital -Continue home antihypertensive medications -Hydralazine 50 twice a day added this admission Chronic: Dyslipidemia Hypertension Hypothyroidism Depression DVT ppx: SCDs Code status: Full Code Anticipated discharge place: Likely home" Note from today No new systemic symptoms on direct questioning Vitals Signs Reviewed. Stable General: nontoxic, no distress, appears at stated age Derm: warm, dry Head: atraumatic, normocephalic, symmetric Eyes: EOMI, no lid lag, anicteric sclera Mouth: no lip lesion, mucus membranes moist Cardiovascular: S1S2 reg, no murmur Lungs: CTA bilateral, no rhonchi, no rales , no accessory muscle use Abdominal: soft, nontender to palpation, no guarding, no appreciable organomegaly Ext: no gross muscle atrophy, no edema, no contractures Neuro: CN II-XI grossly intact, no focal neuro deficits Psych: Alert, oriented, appropriate affect Patient is feeling significantly better since coming into the hospital, blood pressure was noted to be elevated and was therefore started her on hydralazine and lisinopril after which the blood pressure remained in the normotensive range. Patient was seen by pulmonology who according touch with interventional radiology who felt that the pleural effusion was loculated and 2 small for thoracentesis. Plan is to discharge patient home on tapering dose of steroids and Zithromax. 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 Patient was strongly advised to return to the emergency room should there be any worsening of symptoms Patient Condition at Discharge: Stable Plan - Discharge Summary Discharge Rx Participant: No New Discharge Prescriptions: New hydrALAZINE HCL [Apresoline] 50 mg PO BID #60 tab amLODIPine [Norvasc] 5 mg PO DAILY tab INSULIN ASPART (NovoLOG) [NovoLOG (formulary)] 0 unit SQ ACHS each predniSONE 10 mg PO DAILY 12 Days #42 tab Metoprolol Succinate (ER) [Toprol XL] 25 mg PO DAILY tab lisinopriL [Zestril] 10 mg PO DAILY #30 tab Azithromycin [Zithromax] 500 mg PO DAILY 5 Days #5 tab Continue Ezetimibe [Zetia] 10 mg PO DAILY Venlafaxine HCl ER [Effexor XR] 37.5 mg PO BID Metoprolol Succinate (ER) [Toprol XL] 50 mg PO DAILY Cholecalciferol (Vitamin D3) [Vitamin D3 (125 MCG = 5,000 IU)] 125 mcg PO DAILY Insulin Glargine,Hum.rec.anlog [Lantus Solostar Pen] 11 units SQ HS Insulin Lispro [humaLOG Kwikpen] See Protocol SQ ACHS Aspirin EC [Ecotrin Low Dose] 81 mg PO DAILY rOPINIRole HCL [Requip] 1 mg PO TID Levothyroxine Sodium [Synthroid] 75 mcg PO DAILY amLODIPine BESYLATE/BENAZEPRIL [Lotrel 5-10 MG] 1 cap PO DAILY tiZANidine [Zanaflex] 2 mg PO BID Vit C/E/Zn/Coppr/Lutein/Zeaxan [Preservision Areds 2 Chew Tab] 1 tab PO BID Metoprolol Succinate [Metoprolol Succinate ER] 25 mg PO DAILY Ferrous Sulfate [Iron (65 MG Elemental)] 325 mg PO DAILY Cyanocobalamin (Vitamin B-12) [Vitamin B-12] 1,000 mcg PO DAILY Discharge Medication List Ezetimibe [Zetia] 10 mg PO DAILY 02/06/17 [History] Levothyroxine Sodium [Synthroid] 75 mcg PO DAILY 11/18/20 [History] Metoprolol Succinate (ER) [Toprol XL] 50 mg PO DAILY 11/18/20 [History] Venlafaxine HCl ER [Effexor XR] 37.5 mg PO BID 11/18/20 [History] amLODIPine BESYLATE/BENAZEPRIL [Lotrel 5-10 MG] 1 cap PO DAILY 11/18/20 [History] rOPINIRole HCL [Requip] 1 mg PO TID 11/18/20 [History] Aspirin EC [Ecotrin Low Dose] 81 mg PO DAILY 08/25/22 [History] Cholecalciferol (Vitamin D3) [Vitamin D3 (125 MCG = 5,000 IU)] 125 mcg PO DAILY 08/25/22 [History] Cyanocobalamin (Vitamin B-12) [Vitamin B-12] 1,000 mcg PO DAILY 08/25/22 [History] Ferrous Sulfate [Iron (65 MG Elemental)] 325 mg PO DAILY 08/25/22 [History] Insulin Glargine,Hum.rec.anlog [Lantus Solostar Pen] 11 units SQ HS 08/25/22 [History] Insulin Lispro [humaLOG Kwikpen] See Protocol SQ ACHS 08/25/22 [History] Metoprolol Succinate [Metoprolol Succinate ER] 25 mg PO DAILY 08/25/22 [History] Vit C/E/Zn/Coppr/Lutein/Zeaxan [Preservision Areds 2 Chew Tab] 1 tab PO BID 08/25/22 [History] tiZANidine [Zanaflex] 2 mg PO BID 08/25/22 [History] Azithromycin [Zithromax] 500 mg PO DAILY 5 Days #5 tab 08/27/22 [Rx] INSULIN ASPART (NovoLOG) [NovoLOG (formulary)] 0 unit SQ ACHS each 08/27/22 [Rx] Metoprolol Succinate (ER) [Toprol XL] 25 mg PO DAILY tab 08/27/22 [Rx] amLODIPine [Norvasc] 5 mg PO DAILY tab 08/27/22 [Rx] hydrALAZINE HCL [Apresoline] 50 mg PO BID #60 tab 08/27/22 [Rx] lisinopriL [Zestril] 10 mg PO DAILY #30 tab 08/27/22 [Rx] predniSONE 10 mg PO DAILY 12 Days #42 tab 08/27/22 [Rx] Follow up Appointment(s)/Referral(s): Christian Mauricio MD [STAFF PHYSICIAN] - 2 Weeks Garett Jaffe MD [Primary Care Provider] - 09/06/22 4:40 pm Jennifer Torres NPC [Nurse Practitioner] - 1 Week
[2022-08-28 13:32] LABS: T4/T8 Ratio (CD4:CD8) 3.7 (1.0-3.7)
== END 2022-08-27 16:32 | disposition home or self-care (01) ==
LOC: EC 10:24 → 6NMEDSUR 14:01
PROVIDERS: ADMIT Student in an Organized Health Care Education/Training Program; ATTEND Student in an Organized Health Care Education/Training Program
DX: R07.81 Pleurodynia (principal); J90 Pleural effusion, not elsewhere classified; R06.02 Shortness of breath; R00.2 Palpitations; E11.65 Type 2 diabetes mellitus with hyperglycemia; I16.0 Hypertensive urgency; E78.5 Hyperlipidemia, unspecified; I10 Essential (primary) hypertension; Z20.822 Contact with and (suspected) exposure to COVID-19; E03.9 Hypothyroidism, unspecified; F32.A Depression, unspecified; F41.9 Anxiety disorder, unspecified; J44.9 Chronic obstructive pulmonary disease, unspecified; Z80.3 Family history of malignant neoplasm of breast; Z79.82 Long term (current) use of aspirin; Z79.890 Hormone replacement therapy; Z79.4 Long term (current) use of insulin; Z79.899 Other long term (current) drug therapy; Z88.1 Allergy status to other antibiotic agents; Z91.030 Bee allergy status; Z88.2 Allergy status to sulfonamides
CPT/HCPCS: 96366; 96365; 96367; 99285; 36415; 94640 ×2; 94760 ×2; 93005; 93306; 85379; 83880; 80053 ×2; 87449; 85652; 86360; 86355; 86357; 86359; 83615; 83690; 83735; 84155; 84484; 85025 ×2; 85610; 85730; 86140; 86431; 87040; 86038; 86225; 86200; 83036; 84145 ×2; 87636; 71046 ×2; 76604; 71275; G0378 ×3; J0456; J0696 ×2; J7509; Q9967

== ENCOUNTER → 2022-09-29 | Outpatient (CLI) | payer MEDICARE ==
[2022-09-30 02:46] LABS: African American GFR (CKD) 61.6 (60.0-200.0); Anion Gap 13.2 mmol/L (10.00-18.00); BUN/Creat Ratio 16.7 Ratio (12.00-20.00); Blood Urea Nitrogen 16.7 mg/dL (9.0-27.0); Calcium 10.4 mg/dL (8.7-10.3); Carbon Dioxide 26.8 mmol/L (20.0-27.5); Non-African American GFR(CKD) 53.2 (60.0-200.0); Potassium 3.9 mmol/L (3.5-5.5)
--- NOTE | 2022-09-30 10:30 | US ---
LOWER EXTREMITY VENOUS INSUFFICIENCY CLINICAL INDICATION: Female, 82 years old with history of I87.2 Venous insufficiency,; Swelling. No h x of DVT. Patient does not take blood thinners SIDE PERFORMED: Bilateral FINDINGS: 1) Color flow is present and patency is documented in the following vessels. No DVT or SVT is noted . Common Femoral Vein Deep Femoral Vein Femoral Vein Popliteal Vein Proximal Calf Veins Greater Saph Vein Upper Small Saph Vein 2) There is venous reflux noted at the following venous levels: No evidence of reflux seen at this time. IMPRESSION: 1. No evidence for DVT within the bilateral lower extremities imaged from the groin to the upper calv es. 2. No venous reflux visualized within the bilateral lower extremities.
== END | disposition home or self-care (01) ==
LOC: RADUSWWP 15:38
PROVIDERS: ATTEND Internal Medicine
DX: I87.2 Venous insufficiency (chronic) (peripheral) (principal); I10 Essential (primary) hypertension; E11.9 Type 2 diabetes mellitus without complications
CPT/HCPCS: 80048; 83036; 93970

== ENCOUNTER → 2022-12-23 | Outpatient (CLI) | payer MEDICARE ==
--- NOTE | 2022-12-23 15:02 | CT ---
EXAMINATION TYPE: CT chest wo con CT DLP: 894 mGycm, Automated exposure control for dose reduction was used. DATE OF EXAM: 12/23/2022 2:12 PM COMPARISON: Chest radiograph 12/15/2022, chest CT 08/25/2022. CLINICAL INDICATION:Female, 82 years old with history of R91.8 previous abnormal exam lung scott; PH H, abnormal lung findings see previous studies in pacs TECHNIQUE: Multiple axial images were obtained through the chest. Sagittal and coronal reformats were created for review. Contrast used: mL of (None if empty) Oral contrast used: (None if empty) FINDINGS: LUNGS/ PLEURA: Resolution of prior pleural fusion with loculated fluid. No focal consolidation, pneum othorax or pleural effusion. Mild centrilobular emphysema changes. There is scattered streaky atelect asis. Right upper lung calcified centrally granuloma. AIRWAY: Patent and unremarkable. HEART: The heart is mildly enlarged for size. Coronary artery calcifications. MEDIASTINUM: No gross evidence of adenopathy. Small hiatal hernia. VASCULATURE: Atherosclerotic calcifications are present throughout the aorta and its branches. MUSCULOSKELETAL: No acute osseous abnormalities SOFT TISSUES/LYMPH NODES: Unremarkable. LOWER NECK: No significant findings. UPPER ABDOMEN: Splenic calcified granulomas. IMPRESSION: 1. No evidence for suspicious mass. Resolution of prior loculated right pleural effusion. 2. Right upper lobe centrally calcified granuloma likely sequela of chronic granulomatous disease. N o new or enlarging suspicious pulmonary nodules identified. 3. Mild emphysema changes. 4. Cardiomegaly with moderate coronary artery disease.
== END | disposition home or self-care (01) ==
LOC: RADCTMAIN 13:35
PROVIDERS: ATTEND Internal Medicine
DX: J43.2 Centrilobular emphysema (principal); I25.10 Atherosclerotic heart disease of native coronary artery without angina pectoris; R91.8 Other nonspecific abnormal finding of lung field
CPT/HCPCS: 71250

== ENCOUNTER → 2023-03-17 | Outpatient (CLI) | payer MEDICARE ==
--- NOTE | 2023-03-18 07:44 | MM ---
Reason for Exam: Screening (asymptomatic). Last mammogram was performed 1 year(s) and 2 month(s) ago. Patient History: Menarche at age 15. First Full-Term at age 22. Postmenopausal. Mother had breast cancer, age 60. Risk Values: Padma 5 year model risk: 3.1%. NCI Lifetime model risk: 4.8%. Prior Study Comparison: 06/26/2018 Bilateral Screening Mammogram, [facility]. 09/17/2020 Bilateral Screening Mammogram, [facility]. 01/18/2022 Bilateral MG 3D screening mammo w/cad, [facility]. Tissue Density: The breast tissue is heterogeneously dense. This may lower the sensitivity of mammography. Findings: Analyzed By CAD. There is no suspicious group of microcalcifications or new suspicious mass in either breast. Benign calcification within both breasts. Overall Assessment: Benign, BI-RAD 2 Management: Screening Mammogram of both breasts in 1 year. A clinical breast exam by your physician is recommended on an annual basis and results should be correlated with mammographic findings. Note on Padma scores and lifetime risk: 1. A Padma score greater than 3% is considered moderate risk. If this is the case, consider specialist referral to assess eligibility for a risk reducing agent. If overall lifetime risk for the development of breast cancer is 20% or higher, the patient may qualify for future screening with alternating mammogram and breast MRI. Electronically signed and approved by: Roberto Thurston D.O.
== END | disposition home or self-care (01) ==
LOC: RADMAMWWP 14:40
PROVIDERS: ATTEND Internal Medicine
DX: Z12.31 Encounter for screening mammogram for malignant neoplasm of breast (principal); Z78.0 Asymptomatic menopausal state; Z80.3 Family history of malignant neoplasm of breast
CPT/HCPCS: 77063; 77067

== ENCOUNTER → 2024-01-06 | Outpatient (CLI) | payer MEDICARE | END | disposition home or self-care (01) | LOC: LABPRL 12:00 | PROVIDERS: ATTEND Internal Medicine | DX: J02.9 Acute pharyngitis, unspecified (principal) | CPT/HCPCS: 87070 ==

== ENCOUNTER 2024-01-15 13:14 | Emergency (ER) | payer MEDICARE ==
[2024-01-15 13:17] VITALS: TEMP 98.3
--- NOTE | 2024-01-15 14:42 | XR ---
EXAMINATION TYPE: XR wrist complete LT DATE OF EXAM: 01/15/2024 COMPARISON: None HISTORY: 83-year-old female pain for a few days TECHNIQUE: 4 views FINDINGS: The radiocarpal and distal radial ulnar joint as well as the midcarpal compartment appear i ntact. There is moderate degenerative change at the first CMC and triscaphe joints. There may be some ulnar-sided soft tissue swelling as well. No acute fracture, subluxation, dislocation. 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 There may be some ulnar-sided soft tissue swelling. No acute os seous abnormality seen.
--- NOTE | 2024-01-15 15:06 | ED ---
Upper Extremity HPI - General Chief Complaint: Extremity Injury, Upper Stated Complaint: L wrist injury Time Seen by Provider: 01/15/24 15:05 Source: patient, RN notes reviewed Mode of arrival: ambulatory Limitations: no limitations - History of Present Illness Initial Comments: 83-year-old female presented to the ER with a chief complaint of left wrist pain. Patient was reorganizing her closet yesterday lifting many boxes over her head. She states last night and this morning she noticed pain and edema to left wrist. Denies any known injuries or traumas. Denies any paresthesias. Patient has not taken anything for pain at this time. No other injuries or complaints. - Related Data Home Medications Medication Instructions Recorded Confirmed Ezetimibe [Zetia] 10 mg PO DAILY 02/06/17 08/25/22 Levothyroxine Sodium [Synthroid] 75 mcg PO DAILY 11/18/20 08/25/22 Metoprolol Succinate (ER) [Toprol 50 mg PO DAILY 11/18/20 08/25/22 XL] Venlafaxine HCl ER [Effexor XR] 37.5 mg PO BID 11/18/20 08/25/22 amLODIPine BESYLATE/BENAZEPRIL 1 cap PO DAILY 11/18/20 08/25/22 [Lotrel 5-10 MG] rOPINIRole HCL [Requip] 1 mg PO TID 11/18/20 08/25/22 Aspirin EC [Ecotrin Low Dose] 81 mg PO DAILY 08/25/22 08/25/22 Cholecalciferol (Vitamin D3) 125 mcg PO DAILY 08/25/22 08/25/22 [Vitamin D3 (125 MCG = 5,000 IU)] Cyanocobalamin (Vitamin B-12) 1,000 mcg PO DAILY 08/25/22 08/25/22 [Vitamin B-12] Ferrous Sulfate [Iron (65 MG 325 mg PO DAILY 08/25/22 08/25/22 Elemental)] Insulin Glargine,Hum.rec.anlog 11 units SQ HS 08/25/22 08/25/22 [Lantus Solostar Pen] Insulin Lispro [humaLOG Kwikpen] See Protocol SQ ACHS 08/25/22 08/25/22 Metoprolol Succinate [Metoprolol 25 mg PO DAILY 08/25/22 08/25/22 Succinate ER] Vit C/E/Zn/Coppr/Lutein/Zeaxan 1 tab PO BID 08/25/22 08/25/22 [Preservision Areds 2 Chew Tab] tiZANidine [Zanaflex] 2 mg PO BID 08/25/22 08/25/22 Previous Rx's Medication Instructions Recorded Azithromycin [Zithromax] 500 mg PO DAILY 5 Days #5 tab 08/27/22 INSULIN ASPART (NovoLOG) [NovoLOG 0 unit SQ ACHS each 08/27/22 (formulary)] Metoprolol Succinate (ER) [Toprol 25 mg PO DAILY tab 08/27/22 XL] amLODIPine [Norvasc] 5 mg PO DAILY tab 08/27/22 hydrALAZINE HCL [Apresoline] 50 mg PO BID #60 tab 08/27/22 lisinopriL [Zestril] 10 mg PO DAILY #30 tab 08/27/22 predniSONE 10 mg PO DAILY 12 Days #42 tab 08/27/22 Allergies Allergy/AdvReac Type Severity Reaction Status Date / Time amoxicillin Allergy Anaphylaxis Verified 08/25/22 11:19 bee venom protein (honey bee) Allergy Anaphylaxis Verified 08/25/22 11:19 Sulfa (Sulfonamide Allergy Anaphylaxis Verified 08/25/22 11:19 Antibiotics) Review of Systems ROS Statement: Those systems with pertinent positive or pertinent negative responses have been documented in the HPI. ROS Other: All systems not noted in ROS Statement are negative. Past Medical History Past Medical History: Diabetes Mellitus, Hypertension, Thyroid Disorder Additional Past Medical History / Comment(s): irregular heart beat History of Any Multi-Drug Resistant Organisms: None Reported Past Surgical History: No Surgical Hx Reported Additional Past Surgical History / Comment(s): D and C Past Anesthesia/Blood Transfusion Reactions: No Reported Reaction Past Psychological History: Anxiety Smoking Status: Never smoker Past Alcohol Use History: None Reported Past Drug Use History: None Reported - Past Family History Mother Family Medical History: Cancer Additional Family Medical History / Comment(s): Breast CA Father Family Medical History: Unable to Obtain General Exam Limitations: no limitations General appearance: alert, in no apparent distress Respiratory exam: Present: normal lung sounds bilaterally. Absent: respiratory distress, wheezes, rales, rhonchi, stridor Cardiovascular Exam: Present: regular rate, normal rhythm, normal heart sounds. Absent: systolic murmur, diastolic murmur, rubs, gallop, clicks Extremities exam: Present: tenderness (Left distal ulna. Minimal surrounding edema. No overlying skin changes. 2+ left radial pulse. No anatomical snuffbox tenderness. Patient has full active range of motion.) Neurological exam: Present: alert, oriented X3, CN II-XII intact Skin exam: Present: warm, dry, intact, normal color. Absent: rash Course Vital Signs 01/15/24 01/15/24 13:15 15:30 Temperature 98.3 F Pulse Rate 75 74 Respiratory 16 18 Rate Blood Pressure 167/85 148/76 O2 Sat by Pulse 98 97 Oximetry Procedures - Orthopedic Splinting/Casting Injury #1 Side: left Upper Extremity Injury Location: wrist Upper Extremity Immobilizer: posterior splint Medical Decision Making - Medical Decision Making Was pt. sent in by a medical professional or institution (, PA, WORD PROCESSOR TECHNICIAN, urgent care, hospital, or [facility]...) When possible be specific @ -No Did you speak to anyone other than the patient for history (EMS, parent, family, police, friend...)? What history was obtained from this source @ -No Did you review nursing and triage notes (agree or disagree)? Why? @ -I reviewed and agree with nursing and triage notes Were old charts reviewed (outside hosp., previous admission, EMS record, old EKG, old radiological studies, urgent care reports/EKG's, [facility] records)? Report findings @ -No old charts were reviewed Differential Diagnosis (chest pain, altered mental status, abdominal pain women, abdominal pain men, vaginal bleeding, weakness, fever, dyspnea, syncope, headache, dizziness, GI bleed, back pain, seizure, CVA, palpatations, mental health, musculoskeletal)? @ -Differential Musculoskeletal: Muscular strain, contusion, ligament sprain, fracture, arthritis, septic arthritis, bursitis, cellulitis, muscle spasm, nerve compression, DVT, arterial occlusion, herpes zoster, electrolyte abnormality, tumor.... This is not meant to be in all inclusive list EKG interpreted by me (3pts min.). @ -None X-rays interpreted by me (1pt min.). @ -Left wrist x-ray interpreted by me showed an irregularity to the distal ulna. CT interpreted by me (1pt min.). @ -None done U/S interpreted by me (1pt. min.). @ -None done What testing was considered but not performed or refused? (CT, X-rays, U/S, labs)? Why? @ -None What meds were considered but not given or refused? Why? @ -Patient refused analgesic medications. Did you discuss the management of the patient with other professionals ( professionals i.e. DrRafita, PA, WORD PROCESSOR TECHNICIAN, lab, RT, psych nurse, social service technician, redipper, teacher, commanding officer traffic division, watch caser)? Give summary @ -No Was smoking cessation discussed for >3mins.? @ -No Was critical care preformed (if so, how long)? @ -No Were there social determinants of health that impacted care today? How? (Homelessness, low income, unemployed, alcoholism, drug addiction, transportation, low edu. Level, literacy, decrease access to med. care, assisted, rehab)? @ -No Was there de-escalation of care discussed even if they declined (Discuss DNR or withdrawal of care, Hospice)? DNR status @ -No What co-morbidities impacted this encounter? (DM, HTN, Smoking, COPD, CAD, Cancer, CVA, ARF, Chemo, Hep., AIDS, mental health diagnosis, sleep apnea, morbid obesity)? @ -None Was patient admitted / discharged? Hospital course, mention meds given and route, prescriptions, significant lab abnormalities, going to OR and other pertinent info. @ -Discharge. 83-year-old female presented to ER with a chief complaint of left wrist injury. History and physical exam completed. Vitals stable. Left upper extremity neurovascular intact. No anatomical snuffbox tenderness. Tenderness and minimal edema to distal left ulna. X-rays obtained showing and irregularity to distal ulna. Due to patient's age and x-ray findings splint placed, see procedure note above. Advise close follow-up with orthopedics, referral given. Strict return parameters discussed. Patient discharged stable condition. Patient verbally expressed understanding and agreement with care plan. Case discussed with ED attending, Dr. Leal. Undiagnosed new problem with uncertain prognosis? @ -No Drug Therapy requiring intensive monitoring for toxicity (Heparin, Nitro, Insulin, Cardizem)? @ -No Were any procedures done? @ -Yes Diagnosis/symptom? @ -Wrist injury Acute, or Chronic, or Acute on Chronic? @ -Acute Uncomplicated (without systemic symptoms) or Complicated (systemic symptoms)? @ -Uncomplicated Side effects of treatment? @ -No Exacerbation, Progression, or Severe Exacerbation? @ -No Poses a threat to life or bodily function? How? (Chest pain, [place], [place], pneumonia, PE, COPD, DKA, ARF, appy, cholecystitis, CVA, Diverticulitis, Homicidal, Suicidal, threat to staff... and all critical care pts) @ -No - Radiology Data Radiology results: report reviewed, image reviewed Disposition Clinical Impression: Wrist pain Disposition: HOME SELF-CARE Condition: Stable Instructions (If sedation given, give patient instructions): Wrist Injury (ED) Additional Instructions: Follow-up with orthopedics. Return to the ER for any new or worsening concerns. Is patient prescribed a controlled substance at d/c from ED?: No Referrals: Garett Jaffe DO [Primary Care Provider] - 1-2 days Pierre Tucker MD [STAFF PHYSICIAN] - 1-2 days Time of Disposition: 15:06
[2024-01-15 15:38] VITALS: BP 148/76; PULSE 74; RESP 18
== END 2024-01-15 15:32 | disposition home or self-care (01) ==
LOC: EC 13:14
DX: M25.532 Pain in left wrist (principal); Z91.030 Bee allergy status; Z88.2 Allergy status to sulfonamides; Z88.1 Allergy status to other antibiotic agents; X50.0XXA Overexertion from strenuous movement or load, initial encounter
CPT/HCPCS: 29125; 99283

== ENCOUNTER → 2024-04-04 | Outpatient (CLI) | payer MEDICARE ==
[2024-04-04 10:53] LABS: African American GFR (CKD) 68 (>60 ml/min/1.73 sqM); Blood Urea Nitrogen 25 mg/dL (7-17); Non-African American GFR(CKD) 59 (>60 ml/min/1.73 sqM)
--- NOTE | 2024-04-04 12:58 | CT ---
EXAMINATION TYPE: CT ChestAbdPelvis w con CT DLP: 513.2 mGycm, Automated exposure control for dose reduction was used. DATE OF EXAM: 04/04/2024 12:09 PM COMPARISON: CT chest 12/23/2022, CT a chest 08/25/2022. 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 Oral contrast was administered. Two-dimensional coronal an d sagittal reconstructions were obtained. Findings: CHEST: LUNGS/ PLEURA: No pleural effusion, pneumothorax, focal consolidation. Few regions of linear scarring and/or atelectasis. No suspicious pulmonary nodule. Right upper lobe stable calcified granuloma or h amartoma. AIRWAY: Patent and unremarkable.. HEART: Mild cardiomegaly.No pericardial effusion. Moderate coronary artery calcifications. MEDIASTINUM: No evidence of adenopathy. VASCULATURE: No aortic aneurysm. Mildly prominent main pulmonary artery which can be seen with pulmo nary arterial hypertension. Atherosclerotic calcification of the aorta and its branches. MUSCULOSKELETAL: No acute osseous abnormalities. Diffuse bone demineralization. Levocurvature of the thoracolumbar spine. No aggressive osseous lesion. Mild multilevel degenerative disc disease. No calc ification identified within the soft tissues and musculature. SOFT TISSUES/LYMPH NODES: Unremarkable. LOWER NECK: No significant findings. ABDOMEN: ABDOMEN LIVER: Unremarkable GALLBLADDER AND BILE DUCTS: Cholelithiasis. No biliary duct dilatation. PANCREAS: Unremarkable. SPLEEN: A few punctate calcified granulomas. ADRENAL GLANDS: Unremarkable. KIDNEYS AND URETERS: No evidence of hydronephrosis or renal calculus. The kidneys enhance symmetrical ly. Right renal 1.7 cm simple cyst. Contrast is demonstrated within both collecting systems on the de layed phase. PELVIS BLADDER: Incompletely distended but grossly unremarkable. REPRODUCTIVE: Unremarkable. ABDOMEN & PELVIS STOMACH AND BOWEL: Small hiatal hernia, duodenum is unremarkable. Enteric contrast reaches the transv erse colon. Mild colonic stool burden. No focal bowel wall thickening or surrounding inflammatory sp nges. No evidence of bowel obstruction. PERITONEUM: No evidence of pneumoperitoneum or free fluid. VASCULATURE: Moderate atherosclerotic calcifications are present throughout the abdominal aorta and i ts branches. No abdominal aortic aneurysm. Pelvic phleboliths. MUSCULOSKELETAL: No acute osseous abnormalities. Diffuse bone demineralization. Levocurvature of the thoracolumbar spine. Chronic appearing superior endplate compression deformity of the L2 vertebral chavez dy with approximately 2 mm retropulsion and 20% height loss centrally. Grade 1 anterolisthesis of L4 on L5 and L5 on S1 without evidence of pars defects. LYMPH NODES: No evidence for lymphadenopathy. SOFT TISSUE/ABDOMINAL WALL: Unremarkable IMPRESSION: 1. No acute process within the chest, abdomen or pelvis. No adenopathy. 2. Chronic appearing superior endplate compression deformity of the L2 vertebral body. Correlate wit h point tenderness. 3. Cholelithiasis. [facility], , 04/04/2024 12:55 PM
== END | disposition home or self-care (01) ==
LOC: RADCTMAIN 10:00
PROVIDERS: ATTEND Internal Medicine
DX: M33.13 Other dermatomyositis without myopathy (principal); M48.56XA Collapsed vertebra, not elsewhere classified, lumbar region, initial encounter for fracture; K80.20 Calculus of gallbladder without cholecystitis without obstruction; I70.0 Atherosclerosis of aorta
CPT/HCPCS: 82565; 84520; 71260; 74177; 36415; Q9967

== ENCOUNTER → 2024-05-18 | Outpatient (CLI) | payer MEDICARE ==
--- NOTE | 2024-05-21 16:23 | MM ---
Reason for Exam: Screening (asymptomatic). Last mammogram was performed 1 year(s) and 2 month(s) ago. Patient History: Menarche at age 15. First Full-Term at age 22. Postmenopausal. Mother had breast cancer, age 60. Risk Values: Padma 5 year model risk: 3.1%. NCI Lifetime model risk: 4.4%. Prior Study Comparison: 09/17/2020 Bilateral Screening Mammogram, [facility]. 01/18/2022 Bilateral MG 3D screening mammo w/cad, [facility]. 03/17/2023 Bilateral MG 3D screening mammo w/cad, [facility]. Tissue Density: The breasts are heterogeneously dense, which may obscure small masses. Findings: Analyzed By CAD. The pattern is symmetrical. Vascular calcification is present bilaterally. No significant interval changes are evident No suspicious groups of microcalcifications, spiculated or lobular masses, architectural distortion or other secondary signs of malignancy are mammographically apparent. Overall Assessment: Benign, BI-RAD 2 Management: Screening Mammogram of both breasts in 1 year. A negative mammogram report should not preclude additional follow up of suspicious palpable abnormalities. Patient should continue monthly self breast exam. A clinical breast exam by your physician is recommended on an annual basis and results should be correlated with mammographic findings. Note on Padma scores and lifetime risk: 1. A Padma score greater than 3% is considered moderate risk. If this is the case, consider specialist referral to assess eligibility for a risk reducing agent. 2. If overall lifetime risk for the development of breast cancer is 20% or higher, the patient may qualify for future screening with alternating mammogram and breast MRI. [facility], , 05/21/2024 4:20 PM. Electronically signed and approved by: Recee Wray D.O. Radiologis
== END | disposition home or self-care (01) ==
LOC: RADMAMWWP 12:54
PROVIDERS: ATTEND Internal Medicine
DX: Z12.31 Encounter for screening mammogram for malignant neoplasm of breast (principal); R92.333 Mammographic heterogeneous density, bilateral breasts; Z78.0 Asymptomatic menopausal state; Z80.3 Family history of malignant neoplasm of breast
CPT/HCPCS: 77063; 77067

== ENCOUNTER → 2024-12-13 | Outpatient (CLI) | payer MEDICARE ==
[2024-12-13 15:36] LABS: Basophils # (A) 0.06 X 10*3/uL (0.00-0.10); Basophils % (A) 1.3 %; Eosinophils # (A) 0.27 X 10*3/uL (0.04-0.35); Eosinophils % (A) 5.8 %; HCT 41.1 % (37.2-46.3); HGB 13.3 g/dL (12.0-15.0); Immature Grans, Automated 0.40 %; Lymphocytes # (A) 0.80 X 10*3/uL (0.90-5.00); Lymphocytes % (A) 17.1 %; MCH 30.8 pg (27.0-32.0); MCHC 32.4 g/dL (32.0-37.0); MCV 95.1 FL (80.0-97.0); Monocytes # (A) 0.52 X 10*3/uL (0.20-1.00); Monocytes % (A) 11.1 %; NRBC Per 100 WBC 0 X 10*3/uL (0.00-0.01); Neutrophils # (A) 3.02 X 10*3/uL (1.80-7.70); Neutrophils % (A) 64.3 %; Platelet Count 337 X 10*3/uL (140-440); RBC 4.32 X 10*6/uL (4.10-5.20); RDW 12.0 % (11.5-14.5); WBC 4.69 X 10*3/uL (4.50-10.00)
[2024-12-13 16:08] LABS: ALT 14 U/L (8-44); AST 25 U/L (13-35); Albumin 4.0 g/dL (3.8-4.9); Albumin/Globulin Ratio 1.38 Ratio (1.60-3.17); Alkaline Phosphatase 70 U/L (41-126); Anion Gap 13.20 mmol/L (4.00-12.00); BUN/Creat Ratio 24.56 Ratio (12.00-20.00); Blood Urea Nitrogen 22.1 mg/dL (9.0-27.0); Calcium 10.0 mg/dL (8.7-10.3); Carbon Dioxide 28.8 mmol/L (21.6-31.8); Chloride 99 mmol/L (96-109); Cholesterol 173.00 mg/dL (0.00-200.00); Ferritin 1039.0 ng/mL (10.0-291.0); Globulin 2.9 g/dL (1.6-3.3); Glucose 97 mg/dL (70-110); HDL Cholesterol 58.50 mg/dL (40.00-60.00); Iron 62 UG/DL (50-170); LDL Cholesterol,Calculated 100.1 mg/dL (0.0-131.0); Magnesium 2.2 mg/dL (1.5-2.4); Potassium 4.4 mmol/L (3.5-5.5); Rheumatoid Factor, Qnt <15 IU/mL (0-15); Sodium 141 mmol/L (135-145); T4, Free (Free Thyroxine) 1.19 ng/dL (0.80-1.80); Total Iron Binding Capacity 214 UG/DL (228-460); Total Protein 6.9 g/dL (6.2-8.2); Triglycerides 72.10 mg/dL (0.00-149.00); VLDL Calculation 14.42 mg/dL (5.00-40.00); Vitamin B12 795.0 pg/mL (200.0-944.0)
[2024-12-13 19:39] LABS: Cyclic Citrull Pep IgG Unit <1.5 U/mL (<=3.9)
== END | disposition home or self-care (01) ==
LOC: LABWHC1 11:16
PROVIDERS: ATTEND Internal Medicine
DX: E11.319 Type 2 diabetes mellitus with unspecified diabetic retinopathy without macular edema (principal); D64.9 Anemia, unspecified; E03.9 Hypothyroidism, unspecified; M85.80 Other specified disorders of bone density and structure, unspecified site; R20.2 Paresthesia of skin
CPT/HCPCS: 84439; 80061; 80053; 82607; 82728; 82746; 83540; 83550; 83735; 84443; 85025; 86431; 84165; 82306; 86038; 82043; 82570; 86334; 86200; 83036; 36415; G0328